=== PATIENT | female | born 1955 | race Caucasian/White ===

== ENCOUNTER 2020-07-19 16:28 | Outpatient (CLI) | payer MEDICARE, BC, SELFPAY | END 2020-07-19 16:29 | disposition home or self-care (01) | LOC: ANHCOVIDVC 16:28 | PROVIDERS: PCP Internal Medicine | DX: Z23 Encounter for immunization (principal) | CPT/HCPCS: 0001A; 91300 ==

== ENCOUNTER 2020-08-09 16:30 | Outpatient (CLI) | payer MEDICARE, BC, SELFPAY | END 2020-08-09 16:31 | disposition home or self-care (01) | LOC: ANHCOVIDVC 16:30 | PROVIDERS: PCP Internal Medicine | DX: Z23 Encounter for immunization (principal) | CPT/HCPCS: 0002A; 91300 ==

== ENCOUNTER 2022-03-12 15:30 | Emergency (ER) | payer MEDICARE, BC, SELFPAY ==
--- NOTE | ~2022-03-12 | XR_ITS ---
XR shoulder RT min 2V DATE: 03/12/2022 16:22 INDICATION: Fall today. Lateral shoulder pain when raising arm TECHNIQUE: 4 views of right shoulder COMPARISON: None FINDINGS: There is osteopenia. Mild degenerative change of the right acromioclavicular joint. Normal alignment at the michelle clavicu lar and glenohumeral joints. No fracture, dislocation, periosteal reaction or bone destruction or abn ormal soft tissue calcification. IMPRESSION: Osteopenia Mild degenerative change at right acromioclavicular joint No fracture or dislocation Reviewed, dictated and finalized at location A.
--- NOTE | ~2022-03-12 | XR_ITS ---
XR foot RT min 3V DATE: 03/12/2022 16:21 INDICATION: Fall. Dorsal metatarsal pain TECHNIQUE: 4 views COMPARISON: None FINDINGS: Mild plantar calcaneal enthesopathy without erosive change or periostitis. Prominent osteoarthritic arthritis at first metatarsophalangeal joint. No fracture or dislocation, periosteal reaction or bone destruction. IMPRESSION: Osteoarthritis at first metatarsophalangeal joint Mild plantar calcaneal enthesopathy No fracture or dislocation is detected Reviewed, dictated and finalized at location A.
--- NOTE | ~2022-03-12 | XR_ITS ---
XR foot LT min 3V DATE: 03/12/2022 16:20 INDICATION: Fall. Dorsal lateral pain and swelling TECHNIQUE: 4 views COMPARISON: None FINDINGS: Slight plantar calcaneal enthesopathy. Hallux valgus and bunion deformity and prominent osteoarthritic change at the first metatarsophalange al joint. There is a recent transverse nondisplaced intra-articular fracture of the base of the fifth metatarsa l bone IMPRESSION: Recent transverse nondisplaced intra-articular fracture of base of fifth metatarsal bone Hallux valgus and bunion deformity Severe osteoarthritic arthritis at first metatarsophalangeal joint Slight plantar calcaneal enthesopathy Reviewed, dictated and finalized at location A.
[2022-03-12 15:33] VITALS: BP 118/56; PULSE 62; RESP 16; TEMP 36.5; O2SAT 98
--- NOTE | 2022-03-12 16:56 | ED.LOWEXIN ---
HPI - Extremity Injury (Lower) General Chief Complaint: Extremity Injury, Lower <ISHA Meza Last Filed: 03/12/22 20:24> Stated Complaint: left foot pain, right toe pain, right shoulder raoul <ISHA Meza Last Filed: 03/12/22 20:24> Time Seen by Provider: 03/12/22 15:59 <ISHA Meza Last Filed: 03/12/22 20:24> History of Present Illness HPI Narrative: Patient is a 66-year-old female here for evaluation after a fall yesterday. Patient states that she was walking down a slope her driveway when her shoe got caught on an object, causing her to fall forward. States that she struck both feet against the pavement and landed on her right shoulder. Denies head injury or loss of consciousness. Patient has been able to take several steps but states it is painful. Pain is most notable in her right second and third toe, the lateral aspect of her left foot, and then her right shoulder. She was in her usual state of health prior to the fall, denies preceding chest pain, shortness of breath, fevers or chills, nausea or vomiting. <ISHA Meza Last Filed: 03/12/22 20:24> Related Data Home Medications: Home Medications Medication Instructions Recorded Confirmed aspirin 325 mg tablet See Rx Instructions PO DAILY 09/16/19 04/16/20 <ISHA Meza Last Filed: 03/12/22 20:24> Allergies/Adverse Reactions: Allergies Allergy/AdvReac Type Severity Reaction Status Date / Time levofloxacin Allergy Unknown Nausea and Verified 03/12/22 15:37 Vomiting metronidazole Allergy Unknown Nausea and Verified 03/12/22 15:37 Vomiting <ISHA Meza Last Filed: 03/12/22 20:24> Review of Systems Review of Systems: Gen: Denies fevers or chills Eyes: Denies eye pain or visual change ENT: Denies congestion Respiratory: Denies shortness of breath or cough CV: Denies chest pain or palpitations GI: Denies abdominal pain nausea, emesis or diarrhea : denies burning, urgency, frequency or hematuria Musculoskeletal: Denies back pain or muscle pain Neuro: Denies numbness, tingling, weakness or focal weakness Skin: Denies rash Except as documented, all other systems reviewed and negative <Isabelle Murray PA-C - Last Filed: 03/12/22 20:24> PMFSH Past Medical History Medical History: Medical History Postmenopausal Screening for colon cancer Skin lesions <Isabelle Murray PA-C - Last Filed: 03/12/22 20:24> Family History Family History: Family History (Updated 12/07/15 @ 23:19 by DOCTOR UNKNOWN) Mother Cerebrovascular accident Family history of cardiac disorder Family history of diabetes mellitus in first degree relative Family history of coronary artery disease Father Family history of lung cancer Family history of malignant neoplasm of esophagus Sibling Family history of coronary artery disease <Isabelle Murray PA-C - Last Filed: 03/12/22 20:24> Social History Social History: Social History Smoking status: Never smoker Alcohol intake: current <Isabelle Murray PA-C - Last Filed: 03/12/22 20:24> Exam Narrative: APPEARANCE: Well appearing, no pain in distress, well-nourished. Head: Normocephalic and atraumatic. EYES: PERRLA/EOMI, conjunctivae clear NOSE: No nasal drainage EARS: External ear normal in appearance THROAT: Oropharynx is clear. Mucous membranes are moist. NECK: Supple. No adenopathy, no masses. RESPIRATORY: Airway patent, respirations nonlabored. Clear to auscultation bilaterally, no rales, rhonchi, wheezing. CARDIOVASCULAR: Regular rate and rhythm without murmurs, rubs, or gallops. ABDOMINAL: Normoactive bowel sounds. Soft, nontender, nondistended. No rebound tenderness or guarding. MUSCULOSKELETAL: Patient has bruising noted to the right second and third proximal phalanges.
[2022-03-12] MEDS: HYDROcodone/acetaminophen (*CRX) 5-325 MG TABLET 1 TAB PO (17:00)
== END 2022-03-12 18:43 | disposition home or self-care (01) ==
PROVIDERS: Emergency Provider Emergency Medicine; PCP Family Medicine
DX: S92.355A Nondisplaced fracture of fifth metatarsal bone, left foot, initial encounter for closed fracture (principal); S49.91XA Unspecified injury of right shoulder and upper arm, initial encounter; Z79.82 Long term (current) use of aspirin; M19.072 Primary osteoarthritis, left ankle and foot; M19.071 Primary osteoarthritis, right ankle and foot; M20.12 Hallux valgus (acquired), left foot; M21.612 Bunion of left foot; W18.09XA Striking against other object with subsequent fall, initial encounter; M77.52 Other enthesopathy of left foot and ankle; M77.51 Other enthesopathy of right foot and ankle; M85.811 Other specified disorders of bone density and structure, right shoulder
CPT/HCPCS: 29515; 73030; 73630; 99284; A9270

== ENCOUNTER 2022-03-28 14:08 | Outpatient (CLI) | payer MEDICARE, BC, SELFPAY ==
--- NOTE | ~2022-03-28 | XR_ITS ---
XR foot LT min 3V DATE: 03/28/2022 14:34 INDICATION: Metatarsal fracture follow up TECHNIQUE: 4 views COMPARISON: 03/12/2022 left foot FINDINGS: There is hallux valgus and bunion deformity. There is severe osteoarthritis at first metatarsophalangeal joint. There is a transverse nondisplaced intra-articular fracture of the base of the fifth metatarsal bone without interval change in position or alignment since 03/12/2022. IMPRESSION: Nondisplaced intra-articular fracture of the base of fifth metatarsal bone without change in position or alignment since 03/12/2022 Hallux valgus and bunion deformity Severe osteoarthritis at the first metatarsophalangeal joint Reviewed, dictated and finalized at location B. SPREADER IMPRESSION: Nondisplaced intra-articular fracture of the base of fifth metatars al bone without change in position or alignment since 03/12/2022 Hallux valgus and bunion deformity Severe osteoarthritis at the first metatarsophalangeal joint
== END 2022-03-28 14:09 | disposition home or self-care (01) ==
LOC: ANHIMG 14:16
PROVIDERS: PCP Family Medicine; Visit Provider Podiatrist Foot & Ankle Surgery
DX: S92.355A Nondisplaced fracture of fifth metatarsal bone, left foot, initial encounter for closed fracture (principal); X58.XXXA Exposure to other specified factors, initial encounter; M77.32 Calcaneal spur, left foot; M19.072 Primary osteoarthritis, left ankle and foot
CPT/HCPCS: 73630

== ENCOUNTER 2022-04-25 13:41 | Outpatient (CLI) | payer MEDICARE, BC, SELFPAY ==
--- NOTE | ~2022-04-25 | XR_ITS ---
Left foot Technique: AP, oblique, and lateral views were obtained. Clinical History: Metatarsal fracture COMPARISON: 03/28/2022 Findings: Fractured the base of fifth metatarsal demonstrates significant interval healing, with part ial bony bridging across the fracture site.. There is moderate degenerative change at the first metat arsophalangeal joint. Soft tissues are unremarkable. Impression: Significant interval healing of base of fifth metatarsal fracture since the prior exam. Moderate degenerative change at the first MTP joint. Reviewed, dictated and finalized at location [] ING INSTALLER Impression: Significant interval healing of base of fifth metatarsal fracture since the león or exam. Moderate degenerative change at the first MTP joint.
== END 2022-04-25 13:42 | disposition home or self-care (01) ==
PROVIDERS: PCP Family Medicine; Visit Provider Podiatrist Foot & Ankle Surgery
DX: S92.352D Displaced fracture of fifth metatarsal bone, left foot, subsequent encounter for fracture with routine healing (principal); X58.XXXD Exposure to other specified factors, subsequent encounter
CPT/HCPCS: 73630

== ENCOUNTER 2022-06-13 18:02 | Outpatient (CLI) | payer MEDICARE, BC, SELFPAY ==
--- NOTE | ~2022-06-13 | XR_ITS ---
EXAMINATION: XR foot LT min 3V DATE: 06/13/2022 18:40 INDICATION: Metatarsal fracture. TECHNIQUE: 3 views of left foot were obtained. COMPARISON: Left foot radiographs 04/25/2022, 03/28/22 FINDINGS: There is mild hallux valgus. No fracture. There is severe osteoarthritis of first metatarso phalangeal joint and mild osteoarthritis of the interphalangeal joints and midfoot joints. IMPRESSION: 1. No visible fracture. 2. Polyarticular osteoarthritis. 3. Mild hallux valgus. Reviewed, dictated and finalized at location A. IFIED PHARMACY TECHNICIAN
== END 2022-06-13 18:03 | disposition home or self-care (01) ==
LOC: ANHIMG 18:08
PROVIDERS: PCP Family Medicine; Visit Provider Podiatrist Foot & Ankle Surgery
DX: S92.302A Fracture of unspecified metatarsal bone(s), left foot, initial encounter for closed fracture (principal); X58.XXXA Exposure to other specified factors, initial encounter; M19.072 Primary osteoarthritis, left ankle and foot; M20.12 Hallux valgus (acquired), left foot
CPT/HCPCS: 73630

== ENCOUNTER 2023-04-03 22:51 | Inpatient (IN) | payer MEDICARE, BC, SELFPAY ==
--- NOTE | ~2023-04-03 | XR_ITS ---
XR chest 1V portable DATE: 04/03/2023 23:58 INDICATION: Chest pain, nausea. Gallbladder pain. TECHNIQUE: Portable AP chest on 03/30/2023 at 2355 hours COMPARISON: September 05, 2003 2 view chest FINDINGS: Normal heart size. Aortic arch calcification. No hilar or mediastinal enlargement. No pulmonary infiltrate or consolidation, pleural effusion or pulmonary vascular congestion or pneumo thorax is detected. Mild degenerative spurring of the thoracic spine. Osteopenia. IMPRESSION: No active cardiopulmonary disease Aortic atherosclerosis Reviewed, dictated and finalized at location A. AGE ENGINE OPERATOR
--- NOTE | ~2023-04-03 | CT_ITS ---
EXAMINATION: CT abdomen pelvis w con INDICATION: Right upper quadrant pain TECHNIQUE: Computed tomographic images of the abdomen and pelvis were obtained after the administrati on of 100 cc of Omnipaque 350 intravenous contrast. The dose-length product (DLP) was 729.07 mGy-cm. Automated exposure control and iterative reconstruction technique were employed. COMPARISON: 11/13/2016 FINDINGS: Minimal dependent atelectasis is present in the lung bases. The heart size is normal. Bilat eral breast implants are noted. Cysts of liver measure up to 4.1 cm in the right hepatic lobe. The sp ba, pancreas, and adrenal glands are normal. There is questionable mild wall thickening of the gall bladder the left kidney is unremarkable. There is a 4 mm cyst of the right kidney. There is calcified atherosclerosis of the aorta and many of the other arteries. No pathologically enlarged abdominal or pelvic lymph nodes are identified. A moderate volume of colonic stool is present. Colonic diverticul osis is present without evidence of diverticulitis. The appendix is normal. There is moderate lumbar spondylosis. IMPRESSION: 1. Possible gallbladder wall thickening which could reflect cholecystitis. Consider right upper quadr ant ultrasound. Reviewed, dictated and finalized at location F. CHER UTILITY IMPRESSION: 1. Possible gallbladder wall thickening which could reflect cholecystitis. Cons ider right upper quadrant ultrasound.
[2023-04-03 22:54] VITALS: BP 154/68; PULSE 52; RESP 18; TEMP 37.1; O2SAT 100
--- NOTE | 2023-04-03 23:03 | ECG_ITS ---
Measurements Intervals [place] Rate: 48 P: NE: 0 QRS: -9 QRSD: 152 T: 32 QT: 462 QTc: 414 Interpretive Statements JUNCTIONAL RHYTHM CHANAGES TO SINUS BRADYCARDIA LEFT BUNDLE BRANCH BLOCK ABNORMAL ECG NO PREVIOUS ECG AVAILABLE FOR COMPARISON Electronically Signed On 04-04-2023 8:27:21 ELECTRONICS ASSEMBLER AND TESTER by Turner Jean D.O.
[2023-04-03 23:14] LABS: Basophils Absolute Auto 0.1 K/mm3 (0.0-0.1); Basophils Percent Auto 0.8 % (0.2-1.2); Eosinophils Absolute Auto 0.1 K/mm3 (0-0.3); Eosinophils Percent Auto 1.8 % (0-4.4); Hematocrit 39.6 % (37.0-47.0); Hemoglobin 13.5 g/dL (12.0-15.0); Immature Granulocyte Absolute 0.02 K/mm3 (0.00-0.031); Immature Granulocyte Percent A 0.3 % (0-0.5); Lymphocytes Absolute Auto 1.82 K/mm3 (0.9-3.2); Lymphocytes Percent Auto 23.4 % (18.3-44.2); Mean Corpuscular HGB Conc 34.1 g/dl (32-36); Mean Corpuscular Hemoglobin 30.5 pg (26-34); Mean Corpuscular Volume 89.4 fl (80-100); Mean Platelet Volume 10.7 fl (7.4-10.4); Monocytes Absolute Auto 0.5 K/mm3 (0.1-0.6); Monocytes Percent Auto 6.8 % (2.6-8.5); Neutrophils Absolute Auto 5.2 K/mm3 (1.3-6.7); Neutrophils Percent Auto 66.9 % (45.5-73.1); Platelet Count Result 246 k/mm3 (150-375); Red Blood Count 4.43 M/mm3 (4.2-5.4); Red Cell Distribution Width 13.3 % (11.5-14.5); White Blood Count 7.8 K/mm3 (4.5-10.0)
[2023-04-03 23:27] LABS: Alanine Aminotransferase 21 U/L (6-35); Albumin Level 4.3 g/dL (3.5-5.1); Alkaline Phosphatase 73 U/L (38-126); Anion Gap 9 mmol/L (8-16); Aspartate Amino Transferase 25 U/L (14-36); Bilirubin,Total 0.6 mg/dL (0.2-1.3); Blood Urea Nitrogen 18 mg/dL (7-17); Calcium 9.5 mg/dL (8.4-10.2); Carbon Dioxide 21 mmol/L (22-30); Chloride 105 mmol/L (98-107); Estimated CRCL calculation 61 ml/min; Estimated Glomerular Filt Rate > 60; Glucose 180 mg/dL (65-110); Lipase 126 U/L (23-300); Potassium 3.7 mmol/L (3.4-5.0); Sodium 135 mmol/L (137-145)
[2023-04-03 23:32] LABS: Prothrombin Time 13.1 Seconds (11.1-14.7)
[2023-04-03 23:33] LABS: Partial Thromboplastin Time 25.7 SECONDS (22.3-36.8)
[2023-04-04] VITALS (19 sets, daily range): BP systolic 109–150; BP diastolic 48–68; PULSE 51–66; RESP 12–20; TEMP 36.1–36.5; O2SAT 94–100; BMI 33.5
[2023-04-04 00:13] LABS: NT Pro B Type Natriuretic Pept 189 pg/mL (19.9-100); Troponin I 0.018 ng/mL (0.000-0.034)
[2023-04-04] MEDS: ONDANSETRON INJ 4 MG/2 ML VIAL IV PUSH (00:20)
[2023-04-04] MEDS: SODIUM CHLORIDE 0.9% IV 1,000 ML 999 ML IV CONT (00:20)
[2023-04-04] MEDS: ACETAMINOPHEN 500 MG TABLET 1000 MG PO (00:20)
[2023-04-04] MEDS: HYDROmorphone HCL INJ (*CRX) 1 MG/ML SYR 0.5 MG IV PUSH ×2 (00:20→01:58)
--- NOTE | 2023-04-04 00:43 | ED.GENADULT ---
HPI - General Adult General Chief complaint: Abdominal Pain Stated complaint: abd pain Time Seen by Provider: 04/03/23 23:31 History of Present Illness HPI narrative: This is a 59-year-old female presenting ED with a chief complaint of abdominal pain. Patient says that she has pain the RUQ/Epigastric area that started at 945 this evening after eating apple pie. Pain is sharp and radiates to her back and says her arms feel week. 7/10 intensity and getting worse. Patient relates this to previous gallbladder attacks and is scheduled to have her gallbladder out on Thursday. There are no exacerbating relieving factors. She has nausea without vomiting. Denies fever chills chest pain difficulty breathing or urinary symptoms. Patient patient has cardiac history and had a stent placed in 2013. Manufacturing Area Manager is Dr. Cha. Related Data Home Medications Medication Instructions Recorded Confirmed aspirin 325 mg tablet See Rx Instructions PO DAILY 09/16/19 04/16/20 Allergies Allergy/AdvReac Type Severity Reaction Status Date / Time levofloxacin Allergy Unknown Nausea and Verified 04/03/23 22:59 Vomiting metronidazole Allergy Unknown Nausea and Verified 04/03/23 22:59 Vomiting [facility] Past Medical History Medical History (Updated 04/04/23 @ 04:00 by Bimal Ohara MD) CAD (coronary artery disease) CHF (congestive heart failure) Postmenopausal Screening for colon cancer Skin lesions Family History Family History Mother Cerebrovascular accident Family history of cardiac disorder Family history of diabetes mellitus in first degree relative Family history of coronary artery disease Father Family history of lung cancer Family history of malignant neoplasm of esophagus Sibling Family history of coronary artery disease Social History Social History Smoking status: Never smoker Alcohol intake: current Exam Narrative: APPEARANCE: No apparent distress. Head: atraumatic. EYES: EOMI, NOSE: Atraumatic NECK: Trachea midline RESPIRATORY: No increased rate of breathing CARDIOVASCULAR: RRR, ABDOMINAL: Tenderness palpation right upper quadrant, rest the abdomen is soft nontender no guarding or rebound MUSCULOSKELETAl: No obvious deformities, patient has tenderness to palpation in the parathoracic muscles of her back NEURO: Alert. Moving 4/4 extremities SKIN:: Warm, dry. Normal color PSYCHIATRIC: Normal affect Course Vital Signs Vital signs: Vital Signs Temperature 98.7 F 04/03/23 22:54 Pulse Rate 52 L 04/03/23 22:54 Respiratory Rate 18 04/03/23 22:54 Blood Pressure 154/68 H 04/03/23 22:54 Pulse Oximetry 100 04/03/23 22:54 Oxygen Delivery Room Air 04/03/23 22:54 Temperature 98.7 F 04/03/23 22:54 Pulse Rate 58 L 04/04/23 02:02 Respiratory Rate 15 04/04/23 02:02 Blood Pressure 150/68 H 04/04/23 02:02 Pulse Oximetry 100 04/04/23 02:02 Oxygen Delivery Room Air 04/03/23 22:54 Medical Decision Making MDM Narrative Medical decision making narrative: -Course: This is a 67-year-old female history of coronary disease and right upper quadrant pain presenting with epigastric pain radiating to her back. Abdominal workup was unremarkable and her abdominal pain is controlled with medications. However, she does have up-trending troponins. No STEMI on EKG. Patient started on heparin. Case was discussed with Cardiology. Patient will be admitted to the hospital for management of NSTEMI. -DDX includes but is not limited to: Biliary pathology, gastritis, pancreatitis, ACS, gastroenteritis -Co-morbidities complicating care: Cholelithiasis, coronary artery disease -Social determinants of health: Retired, lives alone -Independent interpretation of studies: CBC normal. CMP normal. BNP 189. Chest x-ray clear. Initial troponin 0.018 -> 0.967 Independent EKG i
[2023-04-04] MEDS: KETOROLAC 15 MG/ML VIAL (*BKC) IV PUSH (01:57)
[2023-04-04] MEDS: METOCLOPRAMIDE HCL INJ 10 MG/2 ML VIAL IV PUSH (01:57)
--- NOTE | 2023-04-04 02:11 | PC.NURSE ---
This RN assumed care of patient. This RN took patient report from JEFFREY Fernández.
[2023-04-04 02:37] LABS: Appearance Urine Clear (Clear); Bacteria Urine None Seen /hpf; Bilirubin Urine Negative (Negative); Blood Urine Negative (Negative); Color Urine Yellow (Yellow); Glucose Urine UA Negative (Negative); Ketones Urine Negative (Negative); Leukocyte Esterase Ur Negative LEU/UL (Negative); Need Manual Microscopic Reviewed; Nitrate Urine Negative (Negative); Non Pathogenic Casts 0-2; Protein Urine Trace mg/dL (Negative); Squamous Epithelial Cell Urine None seen /hpf (Few); Urobilinogen Urine 0.2 mg/dL (<2.0); WBC Urine 0-5 /hpf; pH Urine 5.5 (5.0-9.0)
[2023-04-04 02:40] LABS: Add Urine Microscopic? YES
[2023-04-04 03:33] LABS: Troponin I 0.967 ng/mL (0.000-0.034)
--- NOTE | 2023-04-04 03:47 | ECG_ITS ---
Measurements Intervals [place] Rate: 46 P: 64 [place]: 142 QRS: 1 QRSD: 150 T: 77 QT: 546 QTc: 479 Interpretive Statements SINUS BRADYCARDIA LEFT BUNDLE BRANCH BLOCK ABNORMAL ECG COMPARED TO ECG 04/03/2023 23:06:58 NO SIGNIFICANT CHANGES Electronically Signed On 04-04-2023 8:33:39 HAT LINING PASTER by Turner Jean D.O.
[2023-04-04] MEDS: ASPIRIN 81 MG CHEWABLE TABLET 324 MG PO (04:26)
[2023-04-04] MEDS: HEPARIN SOD/D5W 100 UNITS/ML 25,000 UNITS/250 ML BAG 8 UNITS IV CONT (04:27)
[2023-04-04] MEDS: HEPARIN SODIUM 5,000 UNITS/ML VIAL 4000 UNITS IV PUSH (04:27)
--- NOTE | 2023-04-04 05:33 | PC.NURSE ---
This patient, Daisy Rodriguez, was admitted to IMU Room 203-01. Patient/family oriented to hospital policies and general routines including ID bracelet, bed and alarms, visiting hours, pain management, procedures, bathroom and other care routines, personal items, smoking policy, room service/diet, and visiting hours. Information on how to activate the Rapid Response Team has been discussed. Patient/Family are encouraged to report perceived risks to care and to ask questions if they do not understand what they are told or what they should do.
--- NOTE | 2023-04-04 07:20 | PM.IMHP ---
H&P: HPI History of Present Illness Date/Time: 04/04/23 05:30 Chief Complaint: Abdominal pain Narrative: 67-year-old female with a past medical history of ischemic cardiomyopathy, coronary disease status post RCA stent 2013, essential hypertension, hyperlipidemia and obesity among other coronary bed 80s who presented to the ER via EMS due to abdominal pain. The patient reports that she is scheduled to have outpatient cholecystectomy on Thursday. She states that she ate a couple of bites of apple pie around 20:30 and around 21:00 she began having pain a behind her left breast and her epigastric area that radiated through to her back. This is similar to her prior episodes of gallbladder attack. Pain was 10/10 intensity sharp and stabbing. It was accompanied by more severe nausea than usual. After she arrived in the ER though she reports that the pain actually moved from her abdomen and up into her substernal region it radiated through to her back. Is accompanied by as sensation of shortness of breath. The pain also radiated down into her arms bilaterally. She reported that arms felt heavy and weak. She still feels wrong out. She denies any persistent nausea or chest pain after she received 2 doses of Dilaudid in the ER. She also received a dose of Toradol Zofran and Reglan in the ER. As well as a L of IV fluids. She reports that she had her initial cardiac catheterization due to dyspnea on exertion and an EF of 25%. Her catheterization in 2013 demonstrated 50-60% RCA stenosis she had a 3 x 24 mm problem ES stent placed and she was on dual antiplatelet therapy for 1 year. She also had 90% stenosis of small D2 branch of the LCA. She had a episode of VFib during her cardiac catheterization a required defibrillation. She reports her last echocardiogram was performed 1 week ago outpatient and her EF was 52% down from the year before a 58%. She follows with Dr. Holland and Dr. Alvarez performed her cardiac catheterization in 2013. She reports that her baby aspirin has been on hold for 3 or 4 days due to her anticipated cholecystectomy. She has also been on phentermine for the last 3 months she was on 15 mg a month for 2 months and then has been on 30 mg a month for 1 month. She has lost 27 lb. The patient reports that she chronically sleeps on an extra thick pillow consistent with proximally 2 pillow orthopnea. She denies any lower extremity swelling or dyspnea on exertion but admits she is not very active. She has similar symptoms were due to acute cholecystitis. She reports that she has been having intermittent episodes like this for a couple of months. However today's pain was different in that it did moved to a substernal region and caused accompanying arm heaviness. Her nausea was also worse today. She denies a known history of actual having a heart attack in her prior catheterization was due to dyspnea on exertion and abnormal echo as discussed above. Review of Systems Review of Systems: 12 systems were reviewed with pertinent positives and negatives per HPI. Except as documented in the HPI, all other systems were reviewed and are negative. She reports occasional stress urinary incontinence when she coughs. She recently got over URI symptoms that have completely resolved. [facility] Past Medical History Medical History Anxiety Basal cell carcinoma (~2009) Resected from the tip of the nose Bilateral cataracts CAD (coronary artery disease) Depression Diverticulosis With history of diverticulitis Essential hypertension Exercise-induced asthma Hepatic steatosis Hyperlipidemia Ischemic cardiomyopathy With an EF as low as 25% in 2013 with most recent EF 2022 of 52% Left bundle branch block Obesity (BMI 30.0-34.9) ZACH (obstructive sleep apnea) Patient reports that her study demonstrated mild obstructive sleep apnea and CPAP was not recommended Peripheral neuropathy Postmenopausal
[2023-04-04 07:54] LABS: Basophils Percent Auto 0.4 % (0.2-1.2); Eosinophils Percent Auto 0.5 % (0-4.4); Hematocrit 36.3 % (37.0-47.0); Hemoglobin 11.9 g/dL (12.0-15.0); Immature Granulocyte Absolute 0.04 K/mm3 (0.00-0.031); Immature Granulocyte Percent A 0.5 % (0-0.5); Lymphocytes Absolute Auto 1.33 K/mm3 (0.9-3.2); Lymphocytes Percent Auto 17.9 % (18.3-44.2); Mean Corpuscular HGB Conc 32.8 g/dl (32-36); Mean Corpuscular Hemoglobin 30.6 pg (26-34); Mean Corpuscular Volume 93.3 fl (80-100); Mean Platelet Volume 10.7 fl (7.4-10.4); Monocytes Absolute Auto 0.4 K/mm3 (0.1-0.6); Monocytes Percent Auto 5.5 % (2.6-8.5); Neutrophils Absolute Auto 5.6 K/mm3 (1.3-6.7); Neutrophils Percent Auto 75.2 % (45.5-73.1); Platelet Count Result 176 k/mm3 (150-375); Red Blood Count 3.89 M/mm3 (4.2-5.4); Red Cell Distribution Width 13.3 % (11.5-14.5); White Blood Count 7.4 K/mm3 (4.5-10.0)
[2023-04-04 08:32] LABS: Partial Thromboplastin Time 96.9 SECONDS (22.3-36.8)
[2023-04-04 08:35] LABS: D Dimer 0.42 ug/mL (<0.48)
[2023-04-04 09:17] LABS: Hemoglobin A1C 4.9 % (<5.7)
[2023-04-04] MEDS: FOLIC ACID 0.4 MG TABLET 1.2 MG PO (09:22)
[2023-04-04] MEDS: CHOLECALCIFEROL 1,000 UNITS TABLET 5000 UNITS PO (09:22)
[2023-04-04] MEDS: FOLIC ACID 1 MG TABLET PO (09:23)
[2023-04-04] MEDS: FUROSEMIDE 40 MG TABLET PO (09:23)
[2023-04-04] MEDS: LOSARTAN POTASSIUM 25 MG TABLET PO (09:23)
[2023-04-04] MEDS: CITALOPRAM HYDROBROMIDE 20 MG TABLET 40 MG BY MOUTH (09:23)
[2023-04-04] MEDS: DOCUSATE SODIUM 100 MG CAPSULE PO ×2 (09:23→20:02)
[2023-04-04] MEDS: CYANOCOBALAMIN 1,000 MCG TABLET 1000 MCG PO (09:23)
[2023-04-04] MEDS: carvediloL 12.5 MG TABLET PO (09:23)
[2023-04-04] MEDS: PYRIDOXINE HCL 25 MG TABLET PO (09:24)
[2023-04-04] MEDS: ASPIRIN 81 MG ENTERIC TABLET PO (09:24)
[2023-04-04] MEDS: POTASSIUM CHLORIDE 20 MEQ ER TABLET PO (09:24)
--- NOTE | 2023-04-04 11:59 | PM.CNCAR ---
Assessment and Plan Assessment and plan (1) Acute non-ST elevation myocardial infarction (NSTEMI): Code(s): I21.4 - Non-ST elevation (NSTEMI) myocardial infarction Status: Acute Plan This is a 59 lady with a history of coronary disease status post RCA stenting 9 years ago. At that time she also has significant LV systolic dysfunction which has recovered nicely following revascularization and medical therapy. She enters the hospital with an episode of abdominal pain radiating to the center of the chest and interscapular region social with a moderate troponin rise. The diagnosis of ACS has appropriately been made. We will recommend proceed with follow-up angiography on Thursday morning since she has been stabilized with medical therapy and is now asymptomatic. Obviously her outpatient gallbladder surgery will not occur as scheduled. Anderson Alvarez MD [facility] History of Present Illness History of Present Illness Consult date/time: 04/04/23 11:59 Reason For Visit: NSTEMI Narrative: This is a 67-year-old woman I am seeing at the request of the hospitalist because of concern regarding acute coronary syndrome/non ST elevation AR. This is a patient coronary artery disease and left ventricular systolic dysfunction. She came into the hospital last evening because of some symptoms of epigastric abdominal discomfort, right upper quadrant pain that then radiated into the chest and into the interscapular region of her back. The symptoms began after she ate a piece of apple pie which is the reason she was concerned these were symptoms are related to her gallbladder. She has recently been found to have gallstones and apparently is scheduled to have a cholecystectomy done at another hospital on Thursday. She says that she has had symptoms like this with some postprandial pain that have been attributed to gallstones. She is not noticing any exertional symptoms such as chest pain shortness of breath she has been denying any symptoms of orthopnea PND or edema. She has a history of left ventricular systolic dysfunction that was established back in 2013. At that time she had a low ejection fraction of 20-25%. She was brought for anterior angiography at the time of that diagnosis and was found to have moderate disease in the mid right coronary artery. Despite it being moderate angiographically it was flow limiting by FFR testing and she underwent stenting of that lesion with a good angiographic result. She was followed in our office for a short time after that but then failed follow-up because she has spent most of the last few years dealing with her caring for him as he was developing severe dementia. Her recently and she has been trying to attend to her health more than she has in the past. She states that she otherwise generally feels well and does not have any significant complaints at this time. Following admission to the hospital emergency room yesterday her troponin levels did rise moderately raising concern about ACS. She has been treated with aspirin heparin and nitrates and seems to be stable she is no longer symptomatic at all. Electrocardiogram shows sinus rhythm with left bundle branch block which is stated above is chronic. The patient did reestablish care in our office just recently saw my partner, Dr. Cha who performed an echocardiogram in the office which look much better with an ejection fraction of 53%. Regular follow-up in the office was recommended and scheduled. Review of Systems Constitutional: Constitutional: Reports fatigue Eyes: Eyes: Reports no additional eye complaints ENT: Reports system reviewed and no additional complaints, except as documented Cardiovascular: Cardiovascular: Reports as per HPI Respiratory: Respiratory: Reports no additional respiratory complaints Gastrointestinal: Gastrointestinal: Reports as per HPI and Reports abdominal pain Comments: Postprandial abdominal discomfort
[2023-04-04] MEDS: HEPARIN SODIUM 5,000 UNITS/ML VIAL 2500 UNITS IV PUSH (12:30)
--- NOTE | 2023-04-04 12:58 | PM.IMPN ---
Progress Note: A&P Assessment and Plan (1) Acute non-ST elevation myocardial infarction (NSTEMI): Code(s): I21.4 - Non-ST elevation (NSTEMI) myocardial infarction Status: Acute (2) Borderline hyperglycemia: Code(s): R73.9 - Hyperglycemia, unspecified Status: Acute (3) Ischemic cardiomyopathy: Code(s): I25.5 - Ischemic cardiomyopathy Status: Acute (4) Cholelithiasis: Qualifiers: Biliary obstruction: without biliary obstruction Cholelithiasis location: other site Qualified Code(s): K80.80 - Other cholelithiasis without obstruction Code(s): K80.20 - Calculus of gallbladder without cholecystitis without obstruction Status: Acute (5) CAD (coronary artery disease): Qualifiers: Coronary Disease-Associated Artery/Lesion type: [place] artery [place] vs. transplanted heart: [place] heart Associated angina: with unstable angina Qualified Code(s): I25.110 - Atherosclerotic heart disease of [place] coronary artery with unstable angina pectoris Code(s): I25.10 - Atherosclerotic heart disease of [place] coronary artery without angina pectoris Status: Acute (6) Essential (primary) hypertension: Code(s): I10 - Essential (primary) hypertension Status: Acute (7) Hypotension due to drugs: Code(s): I95.2 - Hypotension due to drugs Status: Acute Plan 1. NSTEMI pt placed on heparin drip by overnight hospitalist troponins will not be trended because pt has planned angiography on Thursday If pt decompenstes clinically, may need urgent cath with cardiology already on coreg, asa bp well controlled, actually overly controlled and pt is hypotensive 2. Ischemic cardiomyopathy Reports of EF of 53% on outpt echo, I am not able to see these records From admitting hospitalist, She reports her last echocardiogram was performed 1 week ago outpatient and her EF was 52% down from the year before a 58%.? She follows with Dr. Holland and Dr. Alvarez performed her cardiac catheterization in 2013.? She reports that her baby aspirin has been on hold for 3 or 4 days due to her anticipated cholecystectomy. ?? already on systolic chf medications and lasix appropriately hx of revascularization in 2013, RCA stenosis and LV systolic dysfunction, 20-25% as a result. had stenting at that time with Dr. Alvarez The pt seems euvolemic and lasix discontinuation should be considered, especially in light of her hypotension 3. Hypotension, drug induced lower coreg to 6.25 mg bid, losartan to 12.5 mg qd has been on lasix for >30 years for LE edema and anasarca presumably due to chf ct 40 mg/day. suspend if pt's cr rises 4. Hyperglycemia hb 4.9 on admission iss 5. Hx of cholelithiasis or cholecystitis ct a/p on admission shows Possible gallbladder wall thickening which could reflect cholecystitis Evaluate this after coronary angiography Time Spent With Patient Time: 45 min Subjective Date/time seen: 04/04/23 12:58 Interval history: pt only reports inability to take a deep breath- shallow breathing. denies chest pain. Exam Const: General: comfortable and no acute distress Other: Pleasant overweight white female no apparent distress HENMT: Mouth: Yes moist mucous membranes Eyes: Sclera: sclerae normal Neck: Neck: supple and no JVD Resp: Effort & Inspection: normal respiratory effort Auscultation: clear to auscultation bilaterally Cardio: Rate: regular rate Rhythm: regular rhythm Other: PMI difficult to palpate, no murmur no gallop GI: GI Palp: Yes Soft to palpation Auscultation: normal bowel sounds Skin: General skin exam: normal color Neuro: Other: Alert and oriented x3 Extrem: Other: Good distal perfusion, no edema is present Objective Data Vital Signs Vital Signs: Vital Signs - 24 hr 04/03/23 22:54 04/04/23 02:02 04/04/23 04:30 Temperature 98.7 F Pulse Rate 52 L 58 L 66 Respiratory Rate 1
[2023-04-04] MEDS: NITROGLYCERIN SL 0.4 MG TABLET SUBLINGUAL ×2 (16:33→16:41)
[2023-04-04 17:49] LABS: Glucose Point of Care 119 mg/dl (65-105)
[2023-04-04] MEDS: ALPRAZolam (*CRX) 0.25 MG TABLET PO (18:35)
--- NOTE | 2023-04-04 18:59 | ECG_ITS ---
Measurements Intervals [place] Rate: 54 P: 43 GA: 138 QRS: -3 QRSD: 148 T: 79 QT: 509 QTc: 485 Interpretive Statements SINUS BRADYCARDIA LEFT BUNDLE BRANCH BLOCK BASELINE ARTIFACT- I, III, AVR, AVL ABNORMAL ECG COMPARED TO ECG 04/04/2023 03:49:06 NO SIGNIFICANT CHANGES Electronically Signed On 04-05-2023 9:10:23 [employer] by Turner Jean D.O.
[2023-04-04 19:02] LABS: Partial Thromboplastin Time 107.4 SECONDS (22.3-36.8)
[2023-04-04] MEDS: carvediloL 6.25 MG TABLET PO (20:02)
[2023-04-04] MEDS: ATORVASTATIN 40 MG TABLET BY MOUTH (20:02)
[2023-04-04] MEDS: traZODone HCL 50 MG TABLET PO (20:03)
[2023-04-04 20:36] LABS: Glucose Point of Care 118 mg/dl (65-105)
[2023-04-05] VITALS (16 sets, daily range): BP systolic 96–124; BP diastolic 40–67; PULSE 51–80; RESP 16–20; TEMP 36.4–36.9; O2SAT 97–98
[2023-04-05 01:39] LABS: Partial Thromboplastin Time 78.6 SECONDS (22.3-36.8)
[2023-04-05 06:54] LABS: Basophils Percent Auto 0.7 % (0.2-1.2); Eosinophils Absolute Auto 0.1 K/mm3 (0-0.3); Hematocrit 38.1 % (37.0-47.0); Hemoglobin 12.2 g/dL (12.0-15.0); Immature Granulocyte Absolute 0.01 K/mm3 (0.00-0.031); Immature Granulocyte Percent A 0.2 % (0-0.5); Lymphocytes Absolute Auto 1.57 K/mm3 (0.9-3.2); Lymphocytes Percent Auto 34.9 % (18.3-44.2); Mean Corpuscular Hemoglobin 30.2 pg (26-34); Mean Corpuscular Volume 94.3 fl (80-100); Mean Platelet Volume 10.5 fl (7.4-10.4); Monocytes Absolute Auto 0.3 K/mm3 (0.1-0.6); Monocytes Percent Auto 7.6 % (2.6-8.5); Neutrophils Absolute Auto 2.5 K/mm3 (1.3-6.7); Neutrophils Percent Auto 54.6 % (45.5-73.1); Platelet Count Result 158 k/mm3 (150-375); Red Blood Count 4.04 M/mm3 (4.2-5.4); Red Cell Distribution Width 13.7 % (11.5-14.5); White Blood Count 4.5 K/mm3 (4.5-10.0)
[2023-04-05 07:10] LABS: Partial Thromboplastin Time 72.6 SECONDS (22.3-36.8)
[2023-04-05 08:02] LABS: Glucose Point of Care 93 mg/dl (65-105)
--- NOTE | 2023-04-05 08:06 | PM.PNCARD ---
Progress Note: A&P Assessment and Plan (1) CAD (coronary artery disease): Qualifiers: Coronary Disease-Associated Artery/Lesion type: [place] artery [place] vs. transplanted heart: [place] heart Associated angina: with unstable angina Qualified Code(s): I25.110 - Atherosclerotic heart disease of [place] coronary artery with unstable angina pectoris Code(s): I25.10 - Atherosclerotic heart disease of [place] coronary artery without angina pectoris Status: Acute (2) Acute non-ST elevation myocardial infarction (NSTEMI): Code(s): I21.4 - Non-ST elevation (NSTEMI) myocardial infarction Status: Acute Plan 67-year-old lady with coronary disease status post PCI of the right coronary artery in 2013. She also had low reduced LV systolic function at that time which is improved following revascularization and medical therapy. She enters the hospital now with symptoms that are atypical of ischemia but in the face of this there has been a modest troponin rise. She is stable this morning on intravenous heparin. Plans for follow-up angiography tomorrow again reviewed with the patient. She understands this and is agreeable Anderson Alvarez MD [facility] Subjective Date/time seen: Date of service: 04/05/23 08:06 Interval history: Follow-up visit in this 67-year-old lady with: History of coronary artery disease and left ventricular systolic dysfunction. Patient status post stenting of the RCA in 2013. She enters the hospital here with abdominal/chest discomfort and a modest troponin rise raising concern regarding possibility of ACS. She also has gallstones and was scheduled for cholecystectomy at another institution tomorrow. Patient is comfortable this morning. No ongoing symptoms of chest pain. Her questioning to me why her fingerstick blood glucose is being checked otherwise asymptomatic Exam Const: General: comfortable and no acute distress HENMT: Mouth: Yes moist mucous membranes Eyes: Sclera: sclerae normal Neck: Neck: supple and no JVD Resp: Effort & Inspection: normal respiratory effort Auscultation: clear to auscultation bilaterally Cardio: Rate: regular rate Rhythm: regular rhythm GI: GI Palp: Yes Soft to palpation Auscultation: normal bowel sounds Skin: General skin exam: normal color Neuro: Other: Alert and oriented x3 Extrem: Other: No edema, good perfusion Objective Data Vital Signs Vital Signs: Vital Signs - 24 hr 04/04/23 09:23 04/04/23 10:00 04/04/23 12:00 Temperature 36.4 C Pulse Rate 62 53 L 56 L Respiratory Rate 16 Blood Pressure 109/52 L Pulse Oximetry 97 Oxygen Delivery 04/04/23 12:00 04/04/23 14:00 04/04/23 12:00 Temperature Pulse Rate 58 L 54 L Respiratory Rate Blood Pressure Pulse Oximetry Oxygen Delivery Room Air 04/04/23 16:00 04/04/23 16:00 04/04/23 16:00 Temperature 36.4 C Pulse Rate 52 L 58 L Respiratory Rate 16 Blood Pressure 144/66 H Pulse Oximetry 98 Oxygen Delivery Room Air 04/04/23 18:00 04/04/23 20:02 04/04/23 20:00 Temperature 36.1 C L Pulse Rate 53 L 58 L 58 L Respiratory Rate 16 Blood Pressure 121/56 L Pulse Oximetry 98 Oxygen Delivery 04/04/23 20:00 04/04/23 23:31 04/04/23 20:00 Temperature 36.1 C L Pulse Rate 58 L 51 L 58 L Respiratory Rate 16 16 Blood Pressure 118/48 L Pulse Oximetry 98 98 Oxygen Delivery Room Air 04/04/23 22:00 04/05/23 00:00 04/05/23 00:00 Temperature Pulse Rate 53 L 51 L 51 L Respiratory Rate 16 Blood Pressure Pulse Oximetry 98 Oxygen Delivery Room Air 04/05/23 01:34 04/05/23 04:00 04/05/23 04:00 Temperature 36.4 C Pulse Rate 51 L 60 60 Respiratory Rate 16 16 Blood Pressure 110/40 L Pulse Oximetry 98 98 Oxygen Delivery Room Air 04/05/23 04:00 04/05/23 05:33 Temperature Pulse Rate 51 L 51 L Respiratory Rate Blood Pressure Pulse Oximetry Oxygen Delivery
[2023-04-05] MEDS: POTASSIUM CHLORIDE 20 MEQ ER TABLET PO (10:12)
[2023-04-05] MEDS: FOLIC ACID 1 MG TABLET PO (10:12)
[2023-04-05] MEDS: carvediloL 6.25 MG TABLET PO ×2 (10:12→20:46)
[2023-04-05] MEDS: FUROSEMIDE 40 MG TABLET PO (10:12)
[2023-04-05] MEDS: PYRIDOXINE HCL 25 MG TABLET PO (10:12)
[2023-04-05] MEDS: FOLIC ACID 0.4 MG TABLET 1.2 MG PO (10:12)
[2023-04-05] MEDS: DOCUSATE SODIUM 100 MG CAPSULE PO ×2 (10:12→20:45)
[2023-04-05] MEDS: CHOLECALCIFEROL 1,000 UNITS TABLET 5000 UNITS PO (10:13)
[2023-04-05] MEDS: CYANOCOBALAMIN 1,000 MCG TABLET 1000 MCG PO (10:13)
[2023-04-05] MEDS: CITALOPRAM HYDROBROMIDE 20 MG TABLET 40 MG BY MOUTH (10:13)
[2023-04-05] MEDS: ASPIRIN 81 MG ENTERIC TABLET PO (10:13)
[2023-04-05] MEDS: LOSARTAN POTASSIUM 12.5 MG TABLET PO (10:13)
[2023-04-05] MEDS: HEPARIN SOD/D5W 100 UNITS/ML 25,000 UNITS/250 ML BAG 8 UNITS IV CONT (12:14)
--- NOTE | 2023-04-05 18:28 | PM.IMPN ---
Progress Note: A&P Assessment and Plan (1) Acute non-ST elevation myocardial infarction (NSTEMI): Code(s): I21.4 - Non-ST elevation (NSTEMI) myocardial infarction Status: Acute (2) Borderline hyperglycemia: Code(s): R73.9 - Hyperglycemia, unspecified Status: Acute (3) Ischemic cardiomyopathy: Code(s): I25.5 - Ischemic cardiomyopathy Status: Acute (4) Cholelithiasis: Qualifiers: Biliary obstruction: without biliary obstruction Cholelithiasis location: other site Qualified Code(s): K80.80 - Other cholelithiasis without obstruction Code(s): K80.20 - Calculus of gallbladder without cholecystitis without obstruction Status: Acute (5) CAD (coronary artery disease): Qualifiers: Coronary Disease-Associated Artery/Lesion type: [place] artery [place] vs. transplanted heart: [place] heart Associated angina: with unstable angina Qualified Code(s): I25.110 - Atherosclerotic heart disease of [place] coronary artery with unstable angina pectoris Code(s): I25.10 - Atherosclerotic heart disease of [place] coronary artery without angina pectoris Status: Acute (6) Essential (primary) hypertension: Code(s): I10 - Essential (primary) hypertension Status: Acute (7) Hypotension due to drugs: Code(s): I95.2 - Hypotension due to drugs Status: Acute Plan 1. NSTEMI pt placed on heparin drip by overnight hospitalist troponins will not be trended because pt has planned angiography on Thursday If pt decompenstes clinically, may need urgent cath with cardiology already on coreg, asa bp well controlled, actually overly controlled and pt is hypotensive 04/05: bp under better control with 6.25 mg bid coreg, 12.5 mg qd losartan, and lasix 40 mg/day. on asa and heparin drip and lipitor 40. scheduled coronary angiography tomorrow 2. Ischemic cardiomyopathy Reports of EF of 53% on outpt echo, I am not able to see these records From admitting hospitalist, She reports her last echocardiogram was performed 1 week ago outpatient and her EF was 52% down from the year before a 58%.? She follows with Dr. Holland and Dr. Alvarez performed her cardiac catheterization in 2013.? She reports that her baby aspirin has been on hold for 3 or 4 days due to her anticipated cholecystectomy. ?? already on systolic chf medications and lasix appropriately hx of revascularization in 2014, RCA stenosis and LV systolic dysfunction, 20-25% as a result. had stenting at that time with Dr. Alvarez The pt seems euvolemic and lasix discontinuation should be considered, especially in light of her hypotension 3. Hypotension, drug induced lower coreg to 6.25 mg bid, losartan to 12.5 mg qd has been on lasix for >30 years for LE edema and anasarca presumably due to chf ct 40 mg/day. suspend if pt's cr rises 04/05: normotensive now. again, pt may not need lasix. 4. Hyperglycemia hb 4.9 on admission iss 04/05: stop bs checks 5. Hx of cholelithiasis or cholecystitis ct a/p on admission shows Possible gallbladder wall thickening which could reflect cholecystitis Evaluate this after coronary angiography Time Spent With Patient Time: 35 min Subjective Date/time seen: 04/05/23 18:28 Interval history: pt asymptomatic today. continues on heparin drip. Exam Const: General: comfortable and no acute distress Other: Pleasant overweight white female no apparent distress HENMT: Mouth: Yes moist mucous membranes Eyes: Sclera: sclerae normal Neck: Neck: supple and no JVD Resp: Effort & Inspection: normal respiratory effort Auscultation: clear to auscultation bilaterally Cardio: Rate: regular rate Rhythm: regular rhythm Other: PMI difficult to palpate, no murmur no gallop GI: GI Palp: Yes Soft to palpation Auscultation: normal bowel sounds Skin: General skin exam: normal color Neuro: Other: Alert and oriented x3 Extrem: Other: Good distal
[2023-04-05] MEDS: ALPRAZolam (*CRX) 0.25 MG TABLET PO (20:45)
[2023-04-05] MEDS: ATORVASTATIN 40 MG TABLET BY MOUTH (20:46)
[2023-04-05] MEDS: traZODone HCL 50 MG TABLET PO (20:46)
[2023-04-06] VITALS (26 sets, daily range): BP systolic 114–138; BP diastolic 46–66; PULSE 52–78; RESP 5–24; TEMP 36–37; O2SAT 92–100
[2023-04-06 05:06] LABS: Partial Thromboplastin Time 51.7 SECONDS (22.3-36.8)
[2023-04-06] MEDS: HEPARIN SODIUM 5,000 UNITS/ML VIAL 4000 UNITS IV PUSH (05:21)
[2023-04-06] MEDS: carvediloL 6.25 MG TABLET PO ×2 (10:21→20:12)
[2023-04-06] MEDS: ASPIRIN 81 MG ENTERIC TABLET PO (10:21)
[2023-04-06] MEDS: LOSARTAN POTASSIUM 12.5 MG TABLET PO (10:21)
--- NOTE | 2023-04-06 11:37 | PM.IMPN ---
Progress Note: A&P Assessment and Plan (1) Acute non-ST elevation myocardial infarction (NSTEMI): Code(s): I21.4 - Non-ST elevation (NSTEMI) myocardial infarction Status: Acute (2) Borderline hyperglycemia: Code(s): R73.9 - Hyperglycemia, unspecified Status: Acute (3) Ischemic cardiomyopathy: Code(s): I25.5 - Ischemic cardiomyopathy Status: Acute (4) Cholelithiasis: Qualifiers: Biliary obstruction: without biliary obstruction Cholelithiasis location: other site Qualified Code(s): K80.80 - Other cholelithiasis without obstruction Code(s): K80.20 - Calculus of gallbladder without cholecystitis without obstruction Status: Acute (5) CAD (coronary artery disease): Qualifiers: Coronary Disease-Associated Artery/Lesion type: [place] artery [place] vs. transplanted heart: [place] heart Associated angina: with unstable angina Qualified Code(s): I25.110 - Atherosclerotic heart disease of [place] coronary artery with unstable angina pectoris Code(s): I25.10 - Atherosclerotic heart disease of [place] coronary artery without angina pectoris Status: Acute (6) Essential (primary) hypertension: Code(s): I10 - Essential (primary) hypertension Status: Acute (7) Hypotension due to drugs: Code(s): I95.2 - Hypotension due to drugs Status: Acute Plan 1. NSTEMI pt placed on heparin drip by overnight hospitalist troponins will not be trended because pt has planned angiography on Thursday If pt decompenstes clinically, may need urgent cath with cardiology already on coreg, asa bp well controlled, actually overly controlled and pt is hypotensive 04/05: bp under better control with 6.25 mg bid coreg, 12.5 mg qd losartan, and lasix 40 mg/day. on asa and heparin drip and lipitor 40. scheduled coronary angiography tomorrow 04/06: BP better controlled now. Scheduled for angiography today. F/u cardiology recommendations after cath. 2. Ischemic cardiomyopathy Reports of EF of 53% on outpt echo, I am not able to see these records From admitting hospitalist, She reports her last echocardiogram was performed 1 week ago outpatient and her EF was 52% down from the year before a 58%.? She follows with Dr. Flores and Dr. Alvarez performed her cardiac catheterization in 2013.? She reports that her baby aspirin has been on hold for 3 or 4 days due to her anticipated cholecystectomy. ?? already on systolic chf medications and lasix appropriately hx of revascularization in 2013, RCA stenosis and LV systolic dysfunction, 20-25% as a result. had stenting at that time with Dr. Alvarez The pt seems euvolemic and lasix discontinuation should be considered, especially in light of her hypotension 04/06: pt's bp improved now with lowering bp meds. 3. Hypotension, drug induced lower coreg to 6.25 mg bid, losartan to 12.5 mg qd has been on lasix for >30 years for LE edema and anasarca presumably due to chf ct 40 mg/day. suspend if pt's cr rises 04/05: normotensive now. again, pt may not need lasix. 4. Hyperglycemia hb 4.9 on admission iss 04/05: stop bs checks 5. Hx of cholelithiasis or cholecystitis ct a/p on admission shows Possible gallbladder wall thickening which could reflect cholecystitis Evaluate this after coronary angiography Time Spent With Patient Time: 35 min Subjective Date/time seen: 04/06/23 11:37 Interval history: no new symptoms reported Exam Const: General: comfortable and no acute distress Other: Pleasant overweight white female no apparent distress HENMT: Mouth: Yes moist mucous membranes Eyes: Sclera: sclerae normal Neck: Neck: supple and no JVD Resp: Effort & Inspection: normal respiratory effort Auscultation: clear to auscultation bilaterally Cardio: Rate: regular rate Rhythm: regular rhythm Other: PMI difficult to palpate, no murmur no gallop GI: GI Palp: Yes Soft to palpation Auscultation: no
--- NOTE | 2023-04-06 11:43 | WPDMODSED ---
Moderate Sedation Note-Pt Data Patient Data Diagnosis: intermittent chest pain coronary artery disease with remote history of stenting to the mid right coronary artery Present Complaint: no complaints this morning other than procedural anxiety Procedure to be performed/Plan: left heart catheterization Allergies Allergy/AdvReac Type Severity Reaction Status Date / Time levofloxacin Allergy Unknown Nausea and Verified 04/04/23 06:07 Vomiting metronidazole Allergy Unknown Nausea and Verified 04/04/23 06:07 Vomiting Home Medications Medication Instructions Recorded Confirmed Type carvedilol 12.5 mg tablet 12.5 mg PO Q12H #180 tabs 08/17/20 04/04/23 Rx potassium chloride 10 mEq See Rx Instructions .Route 10/09/20 04/04/23 Rx capsule,extended release .COMPLEX #90 caps citalopram 40 mg tablet See Rx Instructions .Route 10/26/20 04/04/23 Rx .COMPLEX #90 tabs atorvastatin 40 mg tablet See Rx Instructions .Route 12/13/20 04/04/23 Rx .COMPLEX #90 tabs folic acid-vit B6-vit B12 2.2 1 tablet PO DAILY #90 tabs 12/19/20 04/04/23 Rx mg-25 mg-0.5 mg tablet (Folplex) albuterol sulfate 90 mcg/actuation 2 puff inhalation Q6H PRN 04/04/23 04/04/23 History aerosol inhaler Shortness Of Breath alprazolam 0.25 mg tablet 0.25 mg PO TID PRN Anxiety 04/04/23 04/04/23 History aspirin 81 mg tablet,delayed 81 mg PO DAILY 04/04/23 04/04/23 History release cholecalciferol (vitamin D3) 125 125 mcg PO DAILY 04/04/23 04/04/23 History mcg (5,000 unit) tablet (Vitamin D3) docusate sodium 100 mg capsule 100 mg PO Q12H 04/04/23 04/04/23 History ergocalciferol (vitamin D2) 1,250 50,000 unit PO WEEKLY 04/04/23 04/04/23 History mcg (50,000 unit) capsule furosemide 40 mg tablet 40 mg PO DAILY 04/04/23 04/04/23 History losartan 25 mg tablet 25 mg PO DAILY 04/04/23 04/04/23 History ondansetron 4 mg disintegrating 4 mg translingual Q6-8H PRN Nausea 04/04/23 04/04/23 History tablet And Vomiting trazodone 50 mg tablet 50 mg PO HS 04/04/23 04/04/23 History Current Medications: Active Medications Alprazolam (Alprazolam (*Crx) 0.25 Mg Tablet) 0.25 mg PO TID PRN PRN Reason: Anxiety Last Admin: 04/05/23 20:45 Dose: 0.25 mg Aspirin (Aspirin 81 Mg Enteric Tablet) 81 mg PO DAILY [facility] Last Admin: 04/06/23 10:21 Dose: 81 mg Atorvastatin Calcium (Atorvastatin 40 Mg Tablet) 40 mg BY MOUTH [facility] Last Admin: 04/05/23 20:46 Dose: 40 mg Carvedilol (Carvedilol 6.25 Mg Tablet) 6.25 mg PO Q12HR [facility] Last Admin: 04/06/23 10:21 Dose: 6.25 mg Citalopram Hydrobromide (Citalopram Hydrobromide 20 Mg Tablet) 40 mg BY MOUTH DAILY [facility] Last Admin: 04/05/23 10:13 Dose: 40 mg Cyanocobalamin (Cyanocobalamin 1,000 Mcg Tablet) 1,000 mcg PO QAM [facility] Last Admin: 04/05/23 10:13 Dose: 1,000 mcg Dextrose (Dextrose 50% 25 Gm/50 Ml Syringe) 12.5 gm IV PUSH PRN PRN; Protocol PRN Reason: Hypoglycemia Docusate Sodium (Docusate Sodium 100 Mg Capsule) 100 mg PO Q12H [facility] Last Admin: 04/05/23 20:45 Dose: 100 mg Folic Acid (Folic Acid 0.4 Mg Tablet) [facility] Admin: 04/05/23 10:12 Dose: 1.2 mg Folic Acid (Folic Acid 1 Mg Tablet) 1 mg PO QAM [facility] Last Admin: 04/05/23 10:12 Dose: 1 mg Furosemide (Furosemide 40 Mg Tablet) 40 mg PO DAILY [facility] Last Admin: 04/05/23 10:12 Dose: 40 mg Glucagon (Glucagon For Inj 1 Mg Vial) 1 mg IM PRN PRN; Protocol PRN Reason: Hypoglycemia Glucose (Glucose Oral Gel 15 Gm Of Glucse In 37.5 Gm Tube) 15 gm PO PRN PRN; Protocol PRN Reason: Hypoglycemia Heparin Sodium (Porcine) (Heparin Sodium 5,000 Units/Ml Vial) 4,000 units IV PUSH PRN PRN PRN Reason: aPTT less than 55 seconds Last Admin: 04/06/23 05:21 Dose: 4,000 units Heparin Sodium (Porcine) (Heparin Sodium 5,000 Units/Ml Vial) 2,500 units IV PUSH PRN PRN PRN Reason: aPTT 55 - 70 seconds Last Admin: 04/04/23 12:30 Dose: 2,500 units Heparin Sodium/Dextrose (Heparin Sodium/D5w 100 Units/Ml) 25,000 units in 25
[2023-04-06 11:56] LABS: Partial Thromboplastin Time 195.3 SECONDS (22.3-36.8)
--- NOTE | 2023-04-06 12:06 | PC.NURSE ---
Patient to cardiac supervisor dental laboratory, report given to JEFFREY Meneses. PTT lab reported to Zaira prior to patient transportation.
--- NOTE | 2023-04-06 12:43 | WPDCARDPROC ---
Cardiac Cath Procedure Note Date of procedure:: 04/06/23 Performing physician:: Anderson Alvarez MD Indication:: acute coronary syndrome / non ST elevation NM Brief clinical history:: this is a 67-year-old lady who underwent right coronary stenting in the remote past. She also has history of left ventricular systolic dysfunction and a chronic left bundle branch block. She came into the hospital over the weekend with an episode of abdominal and chest pain which was associated with a modest troponin rise. Because of this a follow-up angiogram has now been recommended. Procedure Procedure performed:: Left ventriculogram coronary angiogram Sedation/Medication given:: fentanyl 50 mg Versed 2 mg case start time Access site:: right femoral artery Estimated blood loss:: 25 cc Procedure note:: patient was brought to the cardiac catheterization lab in the postabsorptive state where the right femoral triangle was prepped and draped in the usual fashion. Anesthesia was provided with 1% lidocaine infiltrated locally. Using the modified Seldinger Norwegian sheath was placed into the right femoral artery and left heart catheterization was then carried out. I used a Norwegian angled pigtail catheter to measure left-sided hemodynamics and to inject left ventriculogram in the 30 degree ALANIZ projection. Following this pullback pressures were measured across the aortic valve. The pigtail catheter was then removed and I used a 5 Norwegian FL4 catheter to engage and inject the left coronary artery in multiple projections. Following this a 5 Norwegian JR4 catheter was used to engage and inject the right coronary artery in orthogonal projections. The procedure was then terminated. An angiogram was performed to the femoral artery through the sheath after which I elected to have the sheath removed with direct manual pressure. Patient was taken to the holding area for sheath removal. She was a stable condition and had no evidence of a groin hematoma upon leaving the cardiac catheterization lab. Findings:: Hemodynamics: Central aortic pressure is 128 over 46 left ventricle 120 over 5 end-diastolic pressure 14 there is no gradient pullback across the aortic valve. Left ventricle: The LV is mildly enlarged there is mild to moderate global hypokinesia of the global ejection fraction visually estimates to be about 35% The left main coronary artery is nicely patent the left anterior descending artery is a medium caliber vessel extending down to the apex. The LAD in its midportion has mild about 30-40% narrowing. A very tiny diminutive 1 mm 2nd diagonal branch takes origin in this segment which has a 90% ostial stenosis. The major diagonal branch above this has no significant disease. The circumflex is a medium caliber vessel giving rise to the marginal branch. The circumflex is smooth and angiographically free of disease. The right coronary artery is large caliber and dominant to the posterior circulation. There is stent material from the previous intervention in the mid right coronary artery which remains widely patent. There is no loss of lumen there are no other right coronary lesions identified. Conclusion:: 1. Right coronary dominant circulation with angiographically very mild coronary disease with modest 30-40% mid LAD stenosis and 90% ostial stenosis of a diminutive 2nd diagonal branch in this segment as well. No other significant disease and no flow-limiting disease in the LAD or circumflex 2. dominant right coronary artery with previously deployed stent which remains widely patent 3. moderate left ventricular systolic dysfunction ejection fraction is 35% by visual estimation Anderson Alvarez MD [facility]
[2023-04-06 12:49] LABS: Activated Clotting Time 143 SEC (74-137)
[2023-04-06] MEDS: SODIUM CHLORIDE 0.9% IV 1,000 ML 125 ML IV CONT (13:30)
[2023-04-06] MEDS: DOCUSATE SODIUM 100 MG CAPSULE PO (20:11)
[2023-04-06] MEDS: ATORVASTATIN 40 MG TABLET BY MOUTH (20:11)
[2023-04-06] MEDS: traZODone HCL 50 MG TABLET PO (20:11)
[2023-04-07] VITALS (12 sets, daily range): BP systolic 120–127; BP diastolic 43–54; PULSE 52–64; RESP 18–20; TEMP 35.6–36.6; O2SAT 96–99
--- NOTE | 2023-04-07 | ECHO_ITS ---
Patient Info Name: Daisy Rodriguez Age: 67 years : 1955 Gender: Female Ht: 63 in Wt: 188 lbs BSA: 1.98 m2 HR: 64 bpm BP: 127 / 54 mmHg Heart Rhythm: Sinus Rhythm Technical Quality: Fair Exam Date: 04/07/2023 1:55 PM Exam Location: Echo Lab Patient Status: Inpatient Admit Date: 04/04/2023 Staff Ordering Physician: Kenneth Jasso MD (jeison/porfirio) Post Office Markup Clerk: Mahsa Wu RDCS Attending Provider: Shanelle Fontaine DO Referring Physician: Romero SCOTT; Exam Type: CA echo dop color flow w con Study Info Indications - Evaluate LVEF Complete two-dimensional, color flow and Doppler transthoracic echocardiogram is performed with contrast to opacify the left ventricle and to improve the deliniation of the left ventricle endocardial borders. Contrast/Agitated Saline Contrast/Ag. Saline: Definity Amount: 2.00 ml Administered By: Mahsa Wu RDCS Existing IV Access: Yes IV Access Condition: patent with no signs of infiltration Summary 1. Left ventricular chamber dimension is moderately enlarged. 2. Left ventricular systolic function is mildly reduced, estimated at 45-50%. 3. The left ventricular diastolic function is grade I diastolic dysfunction. 4. Right ventricular systolic function is normal. 5. Left atrial chamber dimension is mildly enlarged. 6. There is mild mitral valve regurgitation. 7. There is mild tricuspid valve regurgitation. 8. There is trivial pericardial effusion. Left Ventricle Left ventricular chamber dimension is moderately enlarged. Left ventricular systolic function is mildly reduced, estimated at 45-50%. There is no increased left ventricular wall thickness. Left ventricular septal wall motion is abnormal with septal motion related to bundle branch block. The left ventricular diastolic function is grade I diastolic dysfunction. Right Ventricle Right ventricular chamber dimension is normal. Right ventricular systolic function is normal. Left Atria Left atrial chamber dimension is mildly enlarged. Right Atria Right atrial chamber dimension is normal. Atrial Septum Intact interatrial septum visualized by color flow imaging. Aortic Valve The aortic valve is trileaflet. There is no aortic valve stenosis. There is no aortic valve regurgitation. There is moderate aortic valve calcification. Pulmonic Valve The pulmonic valve is not well visualized. Mitral Valve There is mild mitral valve regurgitation. The mitral valve annulus is mildly calcified. Tricuspid Valve There is mild tricuspid valve regurgitation. Pericardium/Pleural There is trivial pericardial effusion. Inferior Vena Cava Normal inferior vena cava with >50% collapse upon inspiration consistent with normal right atrial pressure, 3 mmHg. Aorta The aortic root size at the sinus of Valsalva is normal. Left Ventricular Outflow Tract Name Value Normal LVOT 2D LVOT Diameter 1.96 cm LVOT Doppler LVOT Peak Gradient 6 mmHg LVOT Mean Gradient 2 mmHg LVOT VTI 21.16 cm LVOT VTI/AV VTI Ratio 0.71 LVOT Stroke Volume
[2023-04-07] MEDS: POTASSIUM CHLORIDE 20 MEQ ER TABLET PO (08:50)
[2023-04-07] MEDS: CITALOPRAM HYDROBROMIDE 20 MG TABLET 40 MG BY MOUTH (08:52)
[2023-04-07] MEDS: CHOLECALCIFEROL 1,000 UNITS TABLET 5000 UNITS PO (08:52)
[2023-04-07] MEDS: DOCUSATE SODIUM 100 MG CAPSULE PO (08:53)
[2023-04-07] MEDS: CYANOCOBALAMIN 1,000 MCG TABLET 1000 MCG PO (08:53)
[2023-04-07] MEDS: FOLIC ACID 1 MG TABLET PO (08:53)
[2023-04-07] MEDS: LOSARTAN POTASSIUM 12.5 MG TABLET PO (08:53)
[2023-04-07] MEDS: FUROSEMIDE 40 MG TABLET PO (08:53)
[2023-04-07] MEDS: FOLIC ACID 0.4 MG TABLET 1.2 MG PO (08:53)
[2023-04-07] MEDS: PYRIDOXINE HCL 25 MG TABLET PO (08:54)
[2023-04-07] MEDS: ASPIRIN 81 MG ENTERIC TABLET PO (08:59)
[2023-04-07] MEDS: CLOPIDOGREL BISULFATE 75 MG TABLET PO (13:28)
--- NOTE | 2023-04-07 13:30 | PM.PNCARD ---
Progress Note: A&P Assessment and Plan (1) Acute non-ST elevation myocardial infarction (NSTEMI): Code(s): I21.4 - Non-ST elevation (NSTEMI) myocardial infarction Status: Acute Assessment and Plan: Cardiac catheterization 04/06 showed: Right coronary dominant circulation with angiographically very mild coronary disease with modest 30-40% mid LAD stenosis and 90% ostial stenosis of a diminutive 2nd diagonal branch in this segment as well.? No other significant disease and no flow-limiting disease in the LAD or circumflex. Dominant right coronary artery with previously deployed stent which remains widely patent. Moderate left ventricular systolic dysfunction ejection fraction is 35% by visual estimation. Medical management with: ASA 81mg once daily Will start Plavix for medical management of NSTEMI. High intensity statin Beta kyaw (2) Ischemic cardiomyopathy: Code(s): I25.5 - Ischemic cardiomyopathy Status: Acute Assessment and Plan: LV angiogram with LVEF approximately 35%. Will obtain echocardiogram to confirm. Continue Losartan, Coreg (3) Mixed hyperlipidemia: Code(s): E78.2 - Mixed hyperlipidemia Status: Acute Assessment and Plan: Continue statin (4) Essential (primary) hypertension: Code(s): I10 - Essential (primary) hypertension Status: Acute Assessment and Plan: Continue Coreg and Losartan. Plan Outpatient follow up with Dr. Cha. Subjective Date/time seen: 04/07/23 13:30 Interval history: Reason for visit: NSTEMI HPI: This is a 67-year-old woman I am seeing at the request of the hospitalist because of concern regarding acute coronary syndrome/non ST elevation NM.? This is a patient coronary artery disease and left ventricular systolic dysfunction.? She came into the hospital last evening because of some symptoms of epigastric abdominal discomfort, right upper quadrant pain that then radiated into the chest and into the interscapular region of her back.? The symptoms began after she ate a piece of apple pie which is the reason she was concerned these were symptoms are related to her gallbladder.? She has recently been found to have gallstones and apparently is scheduled to have a cholecystectomy done at another hospital on Thursday.? She says that she has had symptoms like this with some postprandial pain that have been attributed to gallstones.? She is not noticing any exertional symptoms such as chest pain shortness of breath she has been denying any symptoms of orthopnea PND or edema.? She has a history of left ventricular systolic dysfunction that was established back in 2013.? At that time she had a low ejection fraction of 20-25%.? She was brought for anterior angiography at the time of that diagnosis and was found to have moderate disease in the mid right coronary artery.? Despite it being moderate angiographically it was flow limiting by FFR testing and she underwent stenting of that lesion with a good angiographic result.? She was followed in our office for a short time after that but then failed follow-up because she has spent most of the last few years dealing with her caring for him as he was developing severe dementia.? Her recently and she has been trying to attend to her health more than she has in the past.? She states that she otherwise generally feels well and does not have any significant complaints at this time.? Following admission to the hospital emergency room yesterday her troponin levels did rise moderately raising concern about ACS.? She has been treated with aspirin heparin and nitrates and seems to be stable she is no longer symptomatic at all.? Electrocardiogram shows sinus rhythm with left bundle branch block which is stated above is chronic.? The patient did reestablish care in our office just recently saw my partner, Dr. Cha who performed an echocardiogram in the office which look much better with an ejection
--- NOTE | 2023-04-07 14:10 | PM.DS ---
DS: Admitting Diagnosis Discharge Date 04/07/23 Admitting Diagnosis chest pain DS: Discharge Diagnosis Discharge Diagnosis (1) Hypotension due to drugs: Code(s): I95.2 - Hypotension due to drugs Status: Acute (2) Ischemic cardiomyopathy: Code(s): I25.5 - Ischemic cardiomyopathy Status: Acute (3) CAD (coronary artery disease): Qualifiers: Coronary Disease-Associated Artery/Lesion type: [place] artery Nikolai vs. transplanted heart: [place] heart Associated angina: with unstable angina Qualified Code(s): I25.110 - Atherosclerotic heart disease of [place] coronary artery with unstable angina pectoris Code(s): I25.10 - Atherosclerotic heart disease of [place] coronary artery without angina pectoris Status: Acute (4) Acute non-ST elevation myocardial infarction (NSTEMI): Code(s): I21.4 - Non-ST elevation (NSTEMI) myocardial infarction Status: Acute DS: Summary Hospital Course Hospital Course: 67F w/ PMH CAD s/p stent, anxiety and depression, HTN, HLD, ischemic cardiomyopathy, LBBB, ZACH, obesity, anasarca, presented with chest pain. She was dx with NSTEMI, and underwent cardiac catheterization on 04/06 demonstrating the following: Right coronary dominant circulation with angiographically very mild coronary disease with modest 30-40% mid LAD stenosis and 90% ostial stenosis of a diminutive 2nd diagonal branch in this segment as well.? No other significant disease and no flow-limiting disease in the LAD or circumflex. Dominant right coronary artery with previously deployed stent which remains widely patent. Moderate left ventricular systolic dysfunction ejection fraction is 35% by visual estimation. No interventions conducted during the cath. She is having a TTE on day of discharge to confirm the EF, and is to follow up on this with her usual child care worker, Dr. Cha. The patient's chest pain was reported to be sharp in nature, and radiated from her right upper quadrant. Resolved. However, she was undergoing evaluation prior to admission for elective gallbladder surgery and is advised to follow up with her surgeon after cardiac risk stratification post admission. As for her NSTEMI mgmt, she will continue ASA 81mg daily, lipitor 40mg qhs, coreg, and plavix which was added this admission. Ms. Rodriguez did have hypotension early on in her admission, this certainly could be the culprit for her ischemia. Her losartan, coreg, and lasix were all decreased and her SBP remained stable in 120's. It is possible she was being overtreated as her HTN improved when she lost 27 lbs in a few months after being prescribed phentermine. She isn't currently taking phentermine and she was counseled on the risks of this, to follow up with PCP and cardiology. All of her questions were answered, pt acknowledged the plan moving forward and is dc'ed in stable condition to home. More than 30 minutes spent on discharge planning and documentation. Time Spent with Patient Time attestation: Total time spent providing and/or coordinating discharge services: Exam Const: General: cooperative and no acute distress Resp: Effort & Inspection: normal respiratory effort Auscultation: clear to auscultation bilaterally Cardio: Rate: regular rate Rhythm: regular rhythm Heart sounds: S1 normal heart sound present and S2 normal heart sound present GI: GI Palp: No abdominal tenderness Auscultation: normal bowel sounds Discharge Plan Discharge Attending physician on discharge: Lavinia Waggoner Consulting providers: Anderson Alvarez Discharging Clinician: Lavinia Waggoner Patient Disposition: Home, Self-Care Activity: september shower Diet: heart healthy Discharge Instructions: As discussed, track your daily weights and bring to your child care worker, Dr. Semaj Cha will give you clearance for your elective gallbladder surgery. Patient Instructions: Antibiotic Form, Heart Attack (DC), Heart Failure (DC), Ch
[2023-04-07] MEDS: PERFLUTREN LIPID MICROSPHERES 1.5 ML VIAL DILUTED TO 10 ML TOTAL VOLUME IV PUSH (14:45)
--- NOTE | 2023-04-07 15:08 | IVDEFINITY ---
Prior to administration of IV Definity the patient was educated on the risks and benefits of the imaging enhancing agent including potential adverse side effects. The patient verbalized understanding. Allergies were verified. No exclusion criteria were identified and at least one of the following inclusion criteria were met: 1) physician request, 2) patient technically difficult to image (per the [place] [employer]chocardi[employer] guidelines of two or more segments not discernable within the apical view), or 3) questionable left ventricular function. ?
== END 2023-04-07 15:38 | disposition home or self-care (01) | DRG 282 ==
LOC: ANHED 04-04 04:00 → ANHIMU 04-04 05:13
PROVIDERS: Internal Medicine; Specialist; Admitting Provider Internal Medicine; Emergency Provider Emergency Medicine; PCP Family Medicine; Visit Provider General Practice
PROC: 4A023N7 Measurement of Cardiac Sampling and Pressure, Left Heart, Percutaneous Approach (ICD-10-PCS; CPT 93452; principal; 2023-04-06 11:30)
DX: I21.4 Non-ST elevation (NSTEMI) myocardial infarction (principal); I11.0 Hypertensive heart disease with heart failure; I50.9 Heart failure, unspecified; I25.10 Atherosclerotic heart disease of native coronary artery without angina pectoris; I25.5 Ischemic cardiomyopathy; I95.2 Hypotension due to drugs; K80.20 Calculus of gallbladder without cholecystitis without obstruction; R73.9 Hyperglycemia, unspecified; E78.5 Hyperlipidemia, unspecified; Z95.5 Presence of coronary angioplasty implant and graft
CPT/HCPCS: 36415; 71045; 74177; 80053; 81001; 81025; 82948; 83036; 83690; 83880; 84484; 85025; 85380; 85610; 85730; 93005; 93458; 96361; 96374; 96375; 96376; 99285; A9270; C1887; C1894; C8929; J0461; J0583; J1170; J1644; J1885; J2250; J2405; J2765; J3010; J7030; J7040; Q9957; Q9967

== ENCOUNTER 2023-04-18 19:27 | Emergency (ER) | payer MEDICARE, BC, SELFPAY ==
--- NOTE | ~2023-04-18 | CT_ITS ---
EXAMINATION: CT abdomen pelvis w con DATE: 04/18/2023 21:11 INDICATION: Eval gb for cholecystitis TECHNIQUE: Computed tomography (CT) of the abdomen and pelvis was performed with 100 mL Omnipaque-350 intravenous contrast. Automated exposure control and iterative reconstruction technique were employe d. The dose-length product was 696.46 mGy-cm. COMPARISON: 04/03/2023. FINDINGS: Lower thorax: Bilateral breast implants. Coronary artery calcifications. Liver: Multiple simple cysts. Multiple subcentimeter hypodensities, too small to characterize but mos t likely represent cysts. Biliary/Gallbladder: Gallbladder is normal. No wall thickening or stones. Suggestion of minimal infla mmatory change in the gallbladder fossa at the gallbladder neck. Minimal but apparently slightly incr eased intrahepatic bile duct dilation. Normal common bile duct. Pancreas: No mass or duct dilation. Spleen: Normal. Adrenals:No mass. Kidneys: No suspicious mass, obstructing stone, or hydronephrosis. Subcentimeter right midpole hypode nsity, too small to characterize but most likely represents a cyst. GI tract: No small or large bowel dilation. Normal appendix. Diverticulosis without diverticulitis. Mesentery/Peritoneum: No ascites, mass, or free air. Retroperitoneum: No mass. Atherosclerotic abdominal aortic and/or arterial calcifications. Pelvis: Pelvic organs are within normal limits. Soft Tissues: Soft tissues and body wall unremarkable. Bones: No acute osseous finding. IMPRESSION: Possible mild inflammatory change of the gallbladder neck/gallbladder fossa. Very mild but apparently increased intrahepatic duct dilation. Correlate with upper quadrant pain and biliary labs. Consider right upper quadrant ultrasound. Otherwise, no acute abdominopelvic process detected. Reviewed, dictated and finalized at location K. [employer]LE[employer]ARD IMPRESSION: Possible mild inflammatory change of the gallbladder neck/gallbladder fossa. Ve ry mild but apparently increased intrahepatic duct dilation. Correlate with upp er quadrant pain and biliary labs. Consider right upper quadrant ultrasound. Otherwise, no acute abdominopelvic process detected.
--- NOTE | ~2023-04-18 | XR_ITS ---
EXAMINATION: XR chest 2V Exam Date/Time: 04/18/2023 20:24 LIGHTING SPECIALIST HISTORY: chest pain, STEMI 10 DAYS AGO Comparison: 04/03/2023, 09/05/2003. RESULT: Lines, tubes, and devices: None. Lungs and pleura: Clear. Cardiomediastinal silhouette: Stable. Other: No acute osseous or upper abdominal finding. IMPRESSION: No acute cardiopulmonary process. Reviewed, dictated and finalized at location K. TING SPECIALIST
--- NOTE | 2023-04-18 19:27 | ECG_ITS ---
Measurements Intervals [place] Rate: 72 P: 40 NH: 126 QRS: 19 QRSD: 147 T: 116 QT: 418 QTc: 458 Interpretive Statements SINUS RHYTHM WITH SINUS ARRHYTHMIA LEFT BUNDLE BRANCH BLOCK Electronically Signed On 04-19-2023 10:27:04 HEAD OF MAINTENANCE by Pablo Anderson M.D.
[2023-04-18 19:28] VITALS: BP 134/58; PULSE 64; RESP 16; TEMP 36.8; O2SAT 97
[2023-04-18 20:04] LABS: Basophils Absolute Auto 0.1 K/mm3 (0.0-0.1); Basophils Percent Auto 0.9 % (0.2-1.2); Eosinophils Absolute Auto 0.1 K/mm3 (0-0.3); Hematocrit 39.3 % (37.0-47.0); Hemoglobin 13.2 g/dL (12.0-15.0); Immature Granulocyte Absolute 0.03 K/mm3 (0.00-0.031); Immature Granulocyte Percent A 0.5 % (0-0.5); Lymphocytes Absolute Auto 1.48 K/mm3 (0.9-3.2); Lymphocytes Percent Auto 26.8 % (18.3-44.2); Mean Corpuscular HGB Conc 33.6 g/dl (32-36); Mean Corpuscular Hemoglobin 30.9 pg (26-34); Mean Platelet Volume 10.9 fl (7.4-10.4); Monocytes Absolute Auto 0.5 K/mm3 (0.1-0.6); Monocytes Percent Auto 8.1 % (2.6-8.5); Neutrophils Absolute Auto 3.4 K/mm3 (1.3-6.7); Neutrophils Percent Auto 61.7 % (45.5-73.1); Platelet Count Result 219 k/mm3 (150-375); Red Blood Count 4.27 M/mm3 (4.2-5.4); Red Cell Distribution Width 13.6 % (11.5-14.5); White Blood Count 5.5 K/mm3 (4.5-10.0)
[2023-04-18 20:15] LABS: Prothrombin Time 13.7 Seconds (11.1-14.7)
[2023-04-18 20:16] LABS: Partial Thromboplastin Time 26.7 SECONDS (22.3-36.8)
[2023-04-18 20:17] LABS: Alanine Aminotransferase 92 U/L (6-35); Albumin Level 4.4 g/dL (3.5-5.1); Alkaline Phosphatase 132 U/L (38-126); Anion Gap 8 mmol/L (8-16); Aspartate Amino Transferase 159 U/L (14-36); Bilirubin,Total 0.8 mg/dL (0.2-1.3); Blood Urea Nitrogen 14 mg/dL (7-17); Calcium 9.5 mg/dL (8.4-10.2); Carbon Dioxide 26 mmol/L (22-30); Chloride 104 mmol/L (98-107); Estimated CRCL calculation 59 ml/min; Estimated Glomerular Filt Rate > 60; Glucose 99 mg/dL (65-110); Lipase 140 U/L (23-300); Potassium 3.9 mmol/L (3.4-5.0); Sodium 138 mmol/L (137-145)
[2023-04-18 20:29] LABS: Troponin I < 0.012 ng/mL (0.000-0.034)
[2023-04-18] MEDS: ACETAMINOPHEN 500 MG TABLET 1000 MG PO (21:17)
[2023-04-18] MEDS: ONDANSETRON INJ 4 MG/2 ML VIAL IV PUSH (21:18)
[2023-04-18] MEDS: SODIUM CHLORIDE 0.9% IV 1,000 ML 999 ML IV CONT (21:19)
[2023-04-18] MEDS: HYDROmorphone HCL INJ (*CRX) 1 MG/ML SYR 0.5 MG IV PUSH (21:20)
[2023-04-18 21:30] VITALS: BP 117/77; PULSE 63; RESP 16; O2SAT 100
[2023-04-18 21:31] LABS: Appearance Urine Clear (Clear); Bacteria Urine None Seen /hpf; Bilirubin Urine Negative (Negative); Blood Urine Negative (Negative); Color Urine Yellow (Yellow); Glucose Urine UA Negative (Negative); Ketones Urine Negative (Negative); Leukocyte Esterase Ur Trace LEU/UL (Negative); Nitrate Urine Negative (Negative); Non Pathogenic Casts 0-2; Protein Urine Negative (Negative); RBC Urine 0-2 /hpf (0-2); Specific Grav Ur 1.017 (1.001-1.035); Squamous Epithelial Cell Urine None seen /hpf (Few); WBC Urine 0-5 /hpf; pH Urine 7.5 (5.0-9.0)
[2023-04-18 21:34] LABS: Add Urine Microscopic? YES
--- NOTE | 2023-04-18 21:35 | ED.GENADULT ---
HPI - General Adult General Chief complaint: Chest Pain Stated complaint: chest pain Time Seen by Provider: 04/18/23 20:38 History of Present Illness HPI narrative: This is a 67-year-old female presenting with right upper quadrant pain. Patient has cholelithiasis and was scheduled for an outpatient cholecystectomy that was postponed due to an NSTEMI. Today she developed pain after she ate dinner. It is a sharp pain in the right upper quadrant radiates to her back. Six out 10 intensity and constant. Similar to his previous gallbladder attack for the last 3-4 months. Worse with deep breaths in eating. Some nausea but no vomiting, no fever chills chest pain difficulty breathing. While the patient has a surgeon at [place] she is unhappy with that hospital and rather have a surgery performed here at [place]. Patient presents here 10 days ago with similar pain although at that time it radiated to the back her chest into her arms. She was diagnosed with NSTEMI and underwent angiography with no intervention made. Related Data Home Medications Medication Instructions Recorded Confirmed albuterol sulfate 90 mcg/actuation 2 puff inhalation Q6H PRN 04/04/23 04/04/23 aerosol inhaler Shortness Of Breath alprazolam 0.25 mg tablet 0.25 mg PO TID PRN Anxiety 04/04/23 04/04/23 aspirin 81 mg tablet,delayed 81 mg PO DAILY 04/04/23 04/04/23 release cholecalciferol (vitamin D3) 125 125 mcg PO DAILY 04/04/23 04/04/23 mcg (5,000 unit) tablet (Vitamin D3) docusate sodium 100 mg capsule 100 mg PO Q12H 04/04/23 04/04/23 ergocalciferol (vitamin D2) 1,250 50,000 unit PO WEEKLY 04/04/23 04/04/23 mcg (50,000 unit) capsule ondansetron 4 mg disintegrating 4 mg translingual Q6-8H PRN Nausea 04/04/23 04/04/23 tablet And Vomiting trazodone 50 mg tablet 50 mg PO HS 04/04/23 04/04/23 Allergies Allergy/AdvReac Type Severity Reaction Status Date / Time levofloxacin Allergy Unknown Nausea and Verified 04/18/23 20:33 Vomiting metronidazole Allergy Unknown Nausea and Verified 04/18/23 20:33 Vomiting [facility] Past Medical History Medical History Anxiety Basal cell carcinoma (~2009) Resected from the tip of the nose Bilateral cataracts CAD (coronary artery disease) Depression Diverticulosis With history of diverticulitis Essential hypertension Exercise-induced asthma Hepatic steatosis Hyperlipidemia Ischemic cardiomyopathy With an EF as low as 25% in 2013 with most recent EF 2022 of 52% Left bundle branch block Obesity (BMI 30.0-34.9) ZACH (obstructive sleep apnea) Patient reports that her study demonstrated mild obstructive sleep apnea and CPAP was not recommended Peripheral neuropathy Postmenopausal Surgical History Surgical History H/O colonoscopy History of arthroscopy of left knee S/P right coronary artery (RCA) stent placement (08/2013) Family History Family History Mother Family history of cardiac disorder Family history of diabetes mellitus in first degree relative Family history of coronary artery disease Cerebrovascular accident Father Family history of malignant neoplasm of esophagus Family history of lung cancer Sibling Family history of coronary artery disease Family history of diabetes mellitus in first degree relative Social History Social History Social History: She has been since March 2021. Her suffered from early-onset dementia and at 57 years old. She has a small dog at home that weighs about 15 lb. She is independent in her activities of daily living. She has 2 living children her in the 40s and are healthy. She is a lifelong nonsmoker. She rarely drinks alcohol and only in moderate amounts. Code status: Full code (however she would not want to be on a
--- NOTE | 2023-04-18 22:25 | ECG_ITS ---
Measurements Intervals [place] Rate: 54 P: 45 IA: 146 QRS: 37 QRSD: 145 T: 109 QT: 465 QTc: 443 Interpretive Statements SINUS BRADYCARDIA LEFT BUNDLE BRANCH BLOCK Electronically Signed On 04-19-2023 10:29:21 FIELD MARKETING ASSOCIATE by Pablo Anderson M.D.
[2023-04-18 22:30] VITALS: BP 124/50; PULSE 69; RESP 19; O2SAT 92
[2023-04-19] MEDS: HYDROmorphone HCL INJ (*CRX) 1 MG/ML SYR 0.5 MG IV PUSH (00:20)
[2023-04-19 00:21] VITALS: BP 113/65; PULSE 58; RESP 17; O2SAT 99
[2023-04-19] MEDS: FAMOTIDINE 20 MG/2 ML VIAL IV PUSH (00:21)
[2023-04-19 00:28] VITALS: BP 114/56; PULSE 54; RESP 15; O2SAT 92
--- NOTE | 2023-04-19 01:42 | ECG_ITS ---
Measurements Intervals [place] Rate: 51 P: 30 [place]: 148 QRS: 16 QRSD: 144 T: 120 QT: 457 QTc: 421 Interpretive Statements SINUS BRADYCARDIA LEFT BUNDLE BRANCH BLOCK Electronically Signed On 04-19-2023 10:30:22 JUNIOR ENGINEER by Pablo Anderson M.D.
[2023-04-19 03:15] VITALS: BP 135/87; PULSE 90; RESP 19; O2SAT 100
== END 2023-04-19 03:15 | disposition home or self-care (01) ==
PROVIDERS: Student in an Organized Health Care Education/Training Program; Emergency Provider Emergency Medicine; PCP Family Medicine
DX: K80.20 Calculus of gallbladder without cholecystitis without obstruction (principal); I25.2 Old myocardial infarction; F41.9 Anxiety disorder, unspecified; I25.10 Atherosclerotic heart disease of native coronary artery without angina pectoris; I10 Essential (primary) hypertension; I25.5 Ischemic cardiomyopathy; J45.990 Exercise induced bronchospasm; E78.5 Hyperlipidemia, unspecified; E66.9 Obesity, unspecified; Z68.31 Body mass index [BMI] 31.0-31.9, adult; G47.33 Obstructive sleep apnea (adult) (pediatric); G62.9 Polyneuropathy, unspecified; Z95.5 Presence of coronary angioplasty implant and graft; Z85.828 Personal history of other malignant neoplasm of skin; Z79.82 Long term (current) use of aspirin; I44.7 Left bundle-branch block, unspecified; R00.1 Bradycardia, unspecified
CPT/HCPCS: 36415; 71046; 74177; 80053; 81001; 83690; 84484; 85025; 85610; 85730; 93005; 96361; 96374; 96375; 96376; 99284; A9270; J1170; J2405; J7030; Q9967

== ENCOUNTER 2023-05-25 12:16 | Outpatient (CLI) | payer MEDICARE, BC, SELFPAY ==
[2023-05-25 12:46] LABS: Amylase 123 U/L (30-110)
== END 2023-05-25 12:17 | disposition home or self-care (01) ==
LOC: ANHSURGERY 12:20
PROVIDERS: PCP Family Medicine; Visit Provider Surgery
DX: K80.20 Calculus of gallbladder without cholecystitis without obstruction (principal); Z01.818 Encounter for other preprocedural examination
CPT/HCPCS: 36415; 82150; 86850; 86900; 86901

== ENCOUNTER 2023-05-29 00:35 | Day surgery (SDC) | payer MEDICARE, BC, SELFPAY ==
[2023-05-22 15:19] VITALS: BMI 31.4
--- NOTE | 2023-05-22 15:53 | PC.NURSE ---
PRE-OP INSTRUCTIONS PLEASE READ CAREFULLY Report to the Outpatient Waiting Room, entrance under the green pavilion located off [facility], at time _1000_ on date _05/29/23_. Planned Procedure Time: _1200_. Time changes happen often and if your time is changed the preop area will call you the afternoon before. - You and your visitor will be asked to self-screen and do not enter if you have any COVID symptoms. - A mask is optional within the hospital at this time. Patients may have clear liquids (water, carbonated beverages, clear teas, apple juice) until 3 hours prior to surgery (0900 AM) with a maximum of 20 ounces. - No food from midnight until time of surgery Take the following medications with a SIP of water the morning of surgery: _CARVEDILOL, CITALOPRAM, & ALPRAZOLAM, PAIN MED IF NEEDED_ DO NOT STOP ANY OF YOUR OTHER PRESCRIPTION MEDICATIONS PRIOR TO SURGERY ?EXCEPT THE FOLLOWING Medications to discontinue per DR. DEL RIO/DR. OCHOA - _PLAVIX 5 DAYS PRIOR TO SURGERY, Date to take last dose 05/23/23_ Medications to discontinue per ANESTHESIA - _VITAMINS/SUPPLEMENTS 3 DAYS PRIOR TO SURGERY, Date to take last dose 05/25/23_ Please no make-up, nail japanese, hairspray, perfume, deodorant, or body powder the day of surgery. No jewelry (including any body piercings) or valuables the day of surgery, leave them at home. Please take a shower or bath the night before, or the morning of, surgery with an antibacterial soap. Wear comfortable, loose fitting clothing. - Jewelry must be removed prior to entering the operating room. Rings and piercings that are not removed may be cut off. - The hospital will not accept responsibility for valuables. - Please leave all valuables, including medications, at home the day of surgery. If you are going home after surgery, a licensed petrol tanker driver must drive you home. - NO public transportation without another adult if you receive anesthesia. - We recommend that an adult stay with you for 24 hours following discharge. - We also recommend that you do not drive, make important decision, drink alcoholic beverages, or take any drugs that were not prescribed by your health care provider for at least 24 hours after your discharge time. Follow any additional instructions given to you from your surgeon. If you or anyone in your household have experienced Covid symptoms in the past week, please notify your surgeon or the nurse liaison at the phone number below for possible testing. Telephone instructions given to _PATIENT_and asked if any additional questions and then verbalized understanding. Patient advised to call surgeon office or pre surgery nurse liaison [phone] if any additional questions.
[2023-05-29] VITALS (8 sets, daily range): BP systolic 122–137; BP diastolic 46–67; PULSE 57–88; RESP 12–18; TEMP 36.2–37; O2SAT 97–100
--- NOTE | ~2023-05-29 | XR_ITS ---
XR cholangiogram surg 1st inj DATE: 05/29/2023 13:52 INDICATION: Cholecystectomy TECHNIQUE: Intraoperative cholangiogram 12.4 seconds fluoroscopy time 3.77 mGy COMPARISON: 04/28/2023 CT abdomen pelvis FINDINGS: Normal contrast opacification of the cystic duct remnant, common bile duct, common hepatic duct and opacification of left and right bile ducts, without stricture, filling defect or obstruction . Contrast material flows freely into the duodenum. IMPRESSION: Negative operating room cholangiogram Reviewed, dictated and finalized at [facility]. Reviewed, dictated and finalized at location [facility]. . DIRECTOR PRODUCT MANAGEMENT
[2023-05-29] MEDS: ACETAMINOPHEN 500 MG TABLET 1000 MG PO (10:25)
[2023-05-29] MEDS: KETOROLAC 15 MG/ML VIAL (*BKC) IV PUSH (10:25)
[2023-05-29] MEDS: LACTATED RINGERS 1,000 ML 30 ML IV CONT ×2 (10:57→14:01)
--- NOTE | 2023-05-29 11:51 | WPDHPUPDATE1 ---
History and Physical Update Update Date/Time: 05/29/23 11:51 History and Physical has been reviewed, including an updated exam of the patient. There are NO changes in the patient's condition. Risks, benefits, and alternatives have been discussed and questions answered. Patient agrees to proceed with procedure.
[2023-05-29] MEDS: ceFAZolin 2 GM/D5W 50 ML 2 GM/50 ML BAG IVPB (12:41)
--- NOTE | 2023-05-29 14:02 | W.PM.PROC2 ---
Procedure Note - Detailed Date of Procedure 05/29/23 Pre-op Diagnosis Acute Calculous Cholecystitis Post-op Diagnosis Same Procedure Performed 1. Laparoscopic cholecystectomy with intraoperative cholangiogram 2. Excision of 5 mm right upper quadrant abdominal skin lesion Surgeon Mikhail Lewis, DO Anesthesia General and Local (0.5% bupivacaine) Indications This is a 67-year-old woman who was hospitalized recently for right upper quadrant and epigastric abdominal pain. She was found to have evidence of acute calculous cholecystitis and elevated liver enzymes. She also had evidence of a non-STEMI. Cardiac catheterization showed no vessels that could be revascularized. Her semiconductor packages leak tester has cleared her for surgery. She is on aspirin and Plavix. Cardiology okayed stopping Plavix for 5 days prior to the surgery. Discussions were made with the patient about treatment options and decision was made to proceed with laparoscopic cholecystectomy with intraoperative cholangiogram, possible open. In preop, the patient also noted a skin lesion that she wanted removed. There was a 5 mm raised skin lesion in the right upper quadrant abdominal skin. Decision made to add this to the procedure consent as well. Findings Laparoscopic cholecystectomy with cholangiogram was performed. The patient's gallbladder had a few pericholecystic adhesions and was slightly dilated. The cystic duct appeared slightly enlarged but there did not appear to be any stones within the cystic duct. Intraoperative cholangiogram was performed using Omnipaque contrast and fluoroscopy. No filling defects were identified within the biliary tree and there was no evidence obstruction. The gallbladder was then removed and sent to the lab for pathology. There did appear to be a couple possible small stones within the body of gallbladder. At the conclusion of the procedure I then made an elliptical incision around the skin lesion in the right upper quadrant using a 15 blade scalpel. This skin lesion was completely excised and sent to the lab for pathology. This appeared possibly an inclusion cyst or a raised irritated skin tag. Description of Procedure Procedure as well as risks, benefits, and alternatives were discussed with patient. Written consent was obtained and placed in chart prior to procedure. The patient was brought back to surgical suite. Patient was placed in supine position on operating table. Time-out was done to confirm patient and procedure. Patient was then intubated by the anesthesia department. Abdomen was prepped and draped in sterile fashion using chlorhexidine prep. 0.5% bupivacaine with epinephrine was infiltrated at each site of incision. An 11 millimeter vertical incision was made at the inferior portion of the umbilicus using a 15 blade scalpel. Blunt dissection was carried down to the linea alba. The linea alba was then incised using a 15 blade scalpel. The peritoneum was then bluntly entered. An 11 millimeter trocar was inserted and carbon dioxide insufflation was used to create a pneumoperitoneum. The camera was inserted and the abdomen was inspected. The patient was placed in reverse Trendelenberg position and rotated slightly to the left. A 5 millimeter incision was made in the epigastric region, and a 5 millimeter trocar was inserted under direct visualization. Two 5 millimeter incisions were made in the right upper quadrant, and two 5 millimeter trocars were inserted under direct visualization. The gallbladder was identified and grasped at the fundus and retracted superiorly. It was then grasped at the infundibulum retracted laterally. Careful dissection around the neck of the gallbladder was performed using blunt dissection with a [place] grasper and hook electrocautery. The cystic duct was identified, and a window was created behind it. The cystic artery was also identified and a window was created behind it. The critical view of safety was identified,
--- NOTE | 2023-05-29 14:08 | WPDANESEPPF ---
Anes - Initial Pre Proc Eval Procedure: Operation Date: 05/29/23 12:00 Proposed Procedures p Laparoscopic Cholecystectomy with Intraoperative Cholangiogram, Possible Open - Mikhail Lewis DO Date/Time: 05/29/23 14:08 Surgeon: Mikhail Lewis DO Pre Op Diagnosis: Acute Cholecystitis Patient Data Age: 67 Gender: F Height: 1.6 m Weight: 78.6 kg Last Vital Signs Temp 97.2 F L 05/29/23 14:01 Pulse 88 05/29/23 14:01 Resp 14 05/29/23 14:01 BP 132/63 05/29/23 14:01 Pulse Ox 100 05/29/23 14:01 O2 Del Method Simple Face Mask 05/29/23 14:01 O2 Flow Rate 8 05/29/23 14:01 Allergies Allergy/AdvReac Type Severity Reaction Status Date / Time levofloxacin Allergy Unknown Nausea and Verified 05/29/23 10:29 Vomiting metronidazole Allergy Unknown Nausea and Verified 05/29/23 10:29 Vomiting Home Medications Medication Instructions Recorded Confirmed Type potassium chloride 10 mEq See Rx Instructions .Route 10/09/20 05/22/23 Rx capsule,extended release .COMPLEX #90 caps citalopram 40 mg tablet See Rx Instructions .Route 10/26/20 05/29/23 Rx .COMPLEX #90 tabs atorvastatin 40 mg tablet See Rx Instructions .Route 12/13/20 05/22/23 Rx .COMPLEX #90 tabs folic acid-vit B6-vit B12 2.2 1 tablet PO DAILY #90 tabs 12/19/20 05/22/23 Rx mg-25 mg-0.5 mg tablet (Folplex) albuterol sulfate 90 mcg/actuation 2 puff inhalation Q6H PRN 04/04/23 05/22/23 History aerosol inhaler Shortness Of Breath alprazolam 0.25 mg tablet 0.25 mg PO TID PRN Anxiety 04/04/23 05/29/23 History aspirin 81 mg tablet,delayed 81 mg PO DAILY 04/04/23 05/29/23 History release docusate sodium 100 mg capsule 100 mg PO Q12H 04/04/23 05/22/23 History ergocalciferol (vitamin D2) 1,250 50,000 unit PO WEEKLY 04/04/23 05/22/23 History mcg (50,000 unit) capsule trazodone 50 mg tablet 50 mg PO HS 04/04/23 05/22/23 History carvedilol 6.25 mg tablet (Coreg) 6.25 mg PO Q12HR #90 tabs 04/07/23 05/29/23 Rx clopidogrel 75 mg tablet 75 mg PO QAM #90 tabs 04/07/23 05/29/23 Rx furosemide 20 mg tablet (Lasix) 20 mg PO DAILY #90 tabs 04/07/23 05/22/23 Rx losartan 25 mg tablet 12.5 mg PO DAILY #90 tabs 04/07/23 05/22/23 Rx ondansetron 4 mg disintegrating 4 mg PO Q8H PRN nausea and 04/19/23 05/22/23 Rx tablet vomiting #30 tabs oxycodone 5 mg tablet 5 mg PO Q4H PRN pain #14 tabs 04/19/23 05/22/23 Rx famotidine 20 mg tablet (Pepcid) 20 mg PO BID 05/14/23 05/22/23 History acetaminophen 500 mg tablet 1,000 mg PO TID PRN Pain 05/22/23 05/22/23 History hydrocodone 5 mg-acetaminophen 325 1 tablet PO Q4H PRN pain #10 tabs 05/29/23 Rx mg tablet Patient hx anesthesia problems: post op nausea/vomiting Family hx anesthesia problems: none Results Review: All pre-operative results and documents have been reviewed as part of the pre-operative evaluation. [facility] Past Medical History Medical History Anxiety Basal cell carcinoma (~2009) Resected from the tip of the nose Bilateral cataracts CAD (coronary artery disease) Depression Diverticulosis With history of diverticulitis Essential hypertension Exercise-induced asthma Hepatic steatosis Hyperlipidemia Ischemic cardiomyopathy With an EF as low as 25% in 2013 with most recent EF 2022 of 52% Left bundle branch block Obesity (BMI 30.0-34.9) ZACH (obstructive sleep apnea) Patient reports that her study demonstrated mild obstructive sleep apnea and CPAP was not recommended Peripheral neuropathy Postmenopausal Surgical History Surgical History H/O colonoscopy History of arthroscopy of left knee S/P right coronary artery (RCA) stent placement (08/2013) Family History Family History Mother Family history of cardiac disorder Family history of diabetes mellitus in first degree relative Family history of c
[2023-05-29] MEDS: oxyCODONE HCL (*CRX) 5 MG TAB IR PO (15:45)
== END 2023-05-29 16:28 | disposition home or self-care (01) ==
PROVIDERS: PCP Family Medicine; Visit Provider Surgery
PROC: 0FT44ZZ Resection of Gallbladder, Percutaneous Endoscopic Approach (ICD-10-PCS; CPT 47562; principal; 2023-05-29 12:00)
DX: K80.10 Calculus of gallbladder with chronic cholecystitis without obstruction (principal); L72.0 Epidermal cyst; I25.10 Atherosclerotic heart disease of native coronary artery without angina pectoris; I10 Essential (primary) hypertension; E78.5 Hyperlipidemia, unspecified; G47.33 Obstructive sleep apnea (adult) (pediatric); J45.998 Other asthma; I25.5 Ischemic cardiomyopathy; G62.9 Polyneuropathy, unspecified; F41.9 Anxiety disorder, unspecified; F32.A Depression, unspecified; E66.9 Obesity, unspecified; Z68.30 Body mass index [BMI] 30.0-30.9, adult; Z95.5 Presence of coronary angioplasty implant and graft; Z79.51 Long term (current) use of inhaled steroids; Z79.82 Long term (current) use of aspirin
CPT/HCPCS: 11400; 47563; 74300; 88304; 88305; A9270; J0461; J0690; J1100; J1596; J1885; J2250; J2405; J2704; J3010; J7120

== ENCOUNTER 2023-12-02 11:22 | Emergency (ER) | payer MEDICARE, BC, SELFPAY ==
[2023-12-02] VITALS (10 sets, daily range): BP systolic 108–131; BP diastolic 45–92; PULSE 60–84; RESP 12–23; TEMP 36.4–36.6; O2SAT 93–100
--- NOTE | ~2023-12-02 | CT_ITS ---
EXAMINATION: CT abdomen pelvis w con DATE: 12/02/2023 13:41 INDICATION: Left lower quadrant pain. Diverticulitis. TECHNIQUE: Computed tomography (CT) of the abdomen and pelvis was performed with 100 cc Omnipaque 350 intravenous contrast. The dose-length product was 1049.08 mGy-cm. Automated exposure control and ite rative reconstruction technique were employed. COMPARISON: 04/18/2023 FINDINGS: There is dependent atelectasis. There are breast implants. Heart size normal. There are mul tiple liver cysts. Status post cholecystectomy. The spleen, pancreas, adrenal glands and kidneys are unremarkable. There is thickening of the sigmoid colon with surrounding phlegmonous change. There are mildly dilated small bowel loops with air-fluid levels in the left upper abdomen, likely focal adyna maria luz ileus secondary to adjacent inflammation. Cannot exclude underlying colonic mass. There is free f luid in the pelvis. There is atherosclerosis of the aorta without aneurysm. Small fat-containing umbi lical hernia. No definite abscess identified. Mild lumbar spondylosis. IMPRESSION: 1. Acute sigmoid diverticulitis. Cannot exclude underlying colonic mass. There are secondary adynamic ileus of the adjacent small bowel. Reviewed, dictated and finalized at location B.
[2023-12-02 11:59] LABS: Basophils Percent Auto 0.2 % (0.2-1.2); Eosinophils Percent Auto 0.2 % (0-4.4); Hematocrit 39.3 % (37.0-47.0); Hemoglobin 13.4 g/dL (12.0-15.0); Immature Granulocyte Absolute 0.04 K/mm3 (0.00-0.031); Immature Granulocyte Percent A 0.3 % (0-0.5); Lymphocytes Absolute Auto 0.72 K/mm3 (0.9-3.2); Lymphocytes Percent Auto 5.8 % (18.3-44.2); Mean Corpuscular HGB Conc 34.1 g/dl (32-36); Mean Corpuscular Hemoglobin 31.6 pg (26-34); Mean Corpuscular Volume 92.7 fl (80-100); Mean Platelet Volume 10.2 fl (7.4-10.4); Monocytes Absolute Auto 1.1 K/mm3 (0.1-0.6); Neutrophils Absolute Auto 10.6 K/mm3 (1.3-6.7); Neutrophils Percent Auto 84.5 % (45.5-73.1); Platelet Count Result 213 k/mm3 (150-375); Red Blood Count 4.24 M/mm3 (4.2-5.4); White Blood Count 12.5 K/mm3 (4.5-10.0)
[2023-12-02 12:06] LABS: Alanine Aminotransferase 24 U/L (6-35); Albumin Level 4.4 g/dL (3.5-5.1); Alkaline Phosphatase 85 U/L (38-126); Anion Gap 11 mmol/L (4-12); Aspartate Amino Transferase 27 U/L (14-36); Bilirubin,Total 1.1 mg/dL (0.2-1.3); Blood Urea Nitrogen 10 mg/dL (7-17); Calcium 8.9 mg/dL (8.4-10.2); Carbon Dioxide 25 mmol/L (22-30); Chloride 103 mmol/L (98-107); Estimated CRCL calculation 67 ml/min; Estimated Glomerular Filt Rate > 60; Glucose 136 mg/dL (65-110); Lipase 52 U/L (23-300); Potassium 3.8 mmol/L (3.4-5.0); Sodium 139 mmol/L (137-145)
[2023-12-02 12:14] LABS: Appearance Urine Clear (Clear); Bacteria Urine None Seen /hpf; Bilirubin Urine Negative (Negative); Blood Urine Negative (Negative); Color Urine Yellow (Yellow); Glucose Urine UA Negative (Negative); Ketones Urine Negative (Negative); Leukocyte Esterase Ur Negative LEU/UL (Negative); Need Manual Microscopic Reviewed; Nitrate Urine Negative (Negative); Non Pathogenic Casts 0-2; Protein Urine Trace mg/dL (Negative); Specific Grav Ur 1.018 (1.001-1.035); Squamous Epithelial Cell Urine None Seen /hpf (Few); WBC Urine 0-5 /hpf (0-3); pH Urine 5.5 (5.0-9.0)
[2023-12-02 12:15] LABS: Add Urine Microscopic? YES
[2023-12-02] MEDS: HYDROmorphone HCL INJ (*CRX) 1 MG/ML SYR 0.5 MG IV PUSH ×2 (13:16→15:37)
[2023-12-02] MEDS: ONDANSETRON INJ 4 MG/2 ML VIAL IV PUSH (13:16)
[2023-12-02] MEDS: cefTRIAXone 2 GM/NS 100 ML 2 GM/100 ML BAG IVPB (13:17)
[2023-12-02] MEDS: LACTATED RINGERS 1,000 ML 999 ML IV CONT (13:17)
--- NOTE | 2023-12-02 15:29 | ED.ABDPAIN ---
HPI - Abdominal Pain General Chief Complaint: Abdominal Pain Stated Complaint: llq, suprapubic pain Time Seen by Provider: 12/02/23 12:27 History of Present Illness HPI narrative: This is a 68 year old female with a past medical history significant for known diverticulosis with previous that was absence. Today patient presents to the emergency department 2 days of left lower quadrant tenderness and pain that she states resembles are normal diverticulitis flares. Patient states her last flare-up was sometime ago. Some very mild associated nausea without any vomiting. She is able tolerate p.o. intake. No diarrhea or constipation, no bloody bowel movements or dark tarry stools. No chest pain, shortness breast she was otherwise in her normal state of health. She has no history of renal involvement or any kidney stones. No urinary complaints. Related Data Home Medications Medication Instructions Recorded Confirmed albuterol sulfate 90 mcg/actuation 2 puff inhalation Q6H PRN 04/04/23 06/11/23 aerosol inhaler Shortness Of Breath alprazolam 0.25 mg tablet 0.25 mg PO TID PRN Anxiety 04/04/23 06/11/23 aspirin 81 mg tablet,delayed 81 mg PO DAILY 04/04/23 06/11/23 release docusate sodium 100 mg capsule 100 mg PO Q12H 04/04/23 06/11/23 trazodone 50 mg tablet 50 mg PO HS 04/04/23 06/11/23 acetaminophen 500 mg tablet 1,000 mg PO TID PRN Pain 05/22/23 06/11/23 Allergies Allergy/AdvReac Type Severity Reaction Status Date / Time levofloxacin Allergy Unknown Nausea and Verified 06/11/23 13:39 Vomiting metronidazole Allergy Unknown Nausea and Verified 06/11/23 13:39 Vomiting Review of Systems Review of Systems: CONSTITUTIONAL: Denies fever, chills, or sweats. EYES: Denies visual changes, redness, or discharge. ENT: Denies rhinorrhea, congestion, sore throat, or otalgia. CARDIOVASCULAR: Denies chest pain, palpitations, or edema. RESPIRATORY: Denies cough or dyspnea. GASTROINTESTINAL: Endorses abdominal pain, mild nausea, no, vomiting, or diarrhea. GENITOURINARY: Denies dysuria or hematuria. SKIN: Denies rash or itching. MUSCULOSKELETAL: Denies back pain, joint pain, or myalgia. NEUROLOGIC: Denies headache, numbness, or weakness. PSYCHIATRIC: Denies anxiety or depression. [facility] Past Medical History Medical History Anxiety Basal cell carcinoma (~2009) Resected from the tip of the nose Bilateral cataracts CAD (coronary artery disease) Depression Diverticulosis With history of diverticulitis Essential hypertension Exercise-induced asthma Hepatic steatosis Hyperlipidemia Ischemic cardiomyopathy With an EF as low as 25% in 2013 with most recent EF 2022 of 52% Left bundle branch block Obesity (BMI 30.0-34.9) ZACH (obstructive sleep apnea) Patient reports that her study demonstrated mild obstructive sleep apnea and CPAP was not recommended Peripheral neuropathy Postmenopausal Surgical History Surgical History H/O colonoscopy History of arthroscopy of left knee S/P right coronary artery (RCA) stent placement (08/2013) Family History Family History Mother Family history of cardiac disorder Family history of diabetes mellitus in first degree relative Family history of coronary artery disease Cerebrovascular accident Father Family history of malignant neoplasm of esophagus Family history of lung cancer Sibling Family history of coronary artery disease Family history of diabetes mellitus in first degree relative Social History Social History Social History: She has been since March 2021. Her suffered from early-onset dementia and at 57 years old. She has a small dog at home that weighs about 15 lb. She is independent in her activities of da
--- NOTE | 2023-12-02 16:00 | PC.NURSE ---
patients medications were infusing slow because they were unable to keep arm straight although reminded numerous times. fluids and antibiotics are now infused
== END 2023-12-02 16:04 | disposition home or self-care (01) ==
PROVIDERS: Emergency Medicine; Emergency Provider Student in an Organized Health Care Education/Training Program; PCP Family Medicine
DX: K57.32 Diverticulitis of large intestine without perforation or abscess without bleeding (principal); I25.10 Atherosclerotic heart disease of native coronary artery without angina pectoris; I10 Essential (primary) hypertension; I25.5 Ischemic cardiomyopathy; J45.990 Exercise induced bronchospasm; E66.9 Obesity, unspecified; Z68.32 Body mass index [BMI] 32.0-32.9, adult; G47.33 Obstructive sleep apnea (adult) (pediatric); G62.9 Polyneuropathy, unspecified; F41.9 Anxiety disorder, unspecified; F32.A Depression, unspecified; Z95.5 Presence of coronary angioplasty implant and graft; Z85.828 Personal history of other malignant neoplasm of skin; Z79.82 Long term (current) use of aspirin; Z79.899 Other long term (current) drug therapy
CPT/HCPCS: 36415; 74177; 80053; 81001; 83690; 85025; 96365; 96366; 96375; 96376; 99284; J0696; J1170; J2405; J7120; Q9967

== ENCOUNTER 2024-12-26 12:09 | Outpatient (CLI) | payer MEDICARE, BC, SELFPAY ==
--- NOTE | ~2024-12-26 | XR_ITS ---
EXAM/ PROCEDURE: XR humerus LT - 12/26/2024 12:25 CDT HISTORY: 69 years old Female with pain in lt arm X 3 MONTHS AFTER FALL, LROM COMPARISON: None available TECHNIQUE: Three view(s) FINDINGS/ IMPRESSION: There are no fractures or dislocations.Joint space narrowing, subchondral sclerosis, subchondral cyst formation and osteophyte formation, compatible with mild osteoarthritis. Reviewed, dictated and finalized at location A.
--- OUTSIDE RECORDS SUMMARY | 2024-12-26 13:06 | XMS_ITS | Continuity of Care Document ---
Author Organization [facility] Address [id number] [place] [address] [place] [address] Phone Care Team Providers Care Legislative Advocate Name Role Phone [facility] Unavailable Unavail able Madelyn Bolanos Unavailable Unavailable Advance Directives Directive Yes / No Effective Date File Name No Information Encounters Encounter Description Practice Location Reason(s) For Visit Diagnoses Date Provider Providers Copied on Encounter [facility], [id number] [place] [address] [address], [place], [place], [id number], [place] tel:[phone] [facility] No Information [phone] [facility] [facility], [address], [place], [place], [id number] , [place]. [phone] Consulting Provider: Madelyn Bolanos, [address] [place] [address], [place], [address]. tel:[phone] Family History Family Member Type Diagnosis Age At Onset No Information Payers Payer name Insurance type Covered constitution party ID Authoriza tion(s) No Information Social [...]
--- OUTSIDE RECORDS SUMMARY | 2024-12-26 13:06 | XMS_ITS | Clinical Summary ---
Author Organization [facility] Building [address] Address [address] [place] [address] Care Team Providers Care Recreation Establishment Manager Name Role Phone Cuauhtemoc Jasso MD Primary Care Provider [phone] Allergies Active Allergy Reactions Criticality Noted Date Comments Levofloxacin Metronidazole Medications ALPRAZolam (XANAX) 0.25 mg tablet take 1 tablet by oral route 2 times every day as neede 0 0 4 Active folic acid-vit B6-vit B12 (FOLPLEX 2.2) 2.2-25-0.5 mg tablet 0 0 4 Active potassium chloride ER (potassium chloride ER) 10 mEq CR tablet take 1 Capsule by ORAL route every day with food 0 0 6 Active atorvastatin (LIPITOR) 40 mg tablet Take 1 tablet (40 mg total) by mouth daily Active citalopram (CeleXA) 40 mg tablet Take 1 tablet (40 mg total) by mouth every morning Active traZODone (DESYREL) 50 mg tablet Take 1 tablet (50 mg total) by mouth nightly Active albuterol HFA (PROVENTIL HFA,VENTOLIN HFA,PROAIR HFA) 90 mcg/actuation inhaler Inhale 2 puffs every 6 (six) hours as needed for wheezing Active polyethylene glycol (MIRALAX) 17 gram/dose bulk powder Take 17 g by mouth once 3 Active docusate sodium (COLACE) 100 mg capsule Take 1 capsule (100 mg total) by mouth 2 (two) times a day as needed 3 Active clopidogreL (PLAVIX) 75 mg tablet Take 1 tablet (75 mg total) by mouth every morning 3 Active acetaminophen (TYLENOL) 500 mg tablet as needed 3 Active carvediloL (COREG) 6.25 mg tablet Take 1 tablet (6.25 mg total) by mouth every 12 (twelve) hours 3 Active losartan (COZAAR) 25 mg tablet Take 0.5 tablets (12.5 mg total) by mouth daily 3 Active furosemide (LASIX) 20 mg tablet Take 1 tablet (20 mg total) by mouth daily 3 Active ergocalciferol (VITAMIN D) 50,000 unit capsule Take 1 capsule (50,000 Units total) by mouth once a week [address] (PROTONIX) 40 mg EC tablet Take 1 tablet (40 mg total) by mouth every morning 5 Active Wegovy 0.25 mg/0.5 mL auto-injector INJECT 0.25MG SUBCTANEOUSLY ONCE WEEKLY DIRECTED 5 Active Active Problems Problem Noted Date Diagnosed Date Well woman exam 04/27/2023 Overview (04/27/2023): Lab: Pap:age 52. Labs with pcp Coni:2022 Colonoscopy:2021- to repeat yearly BMD:osteopenia. Follows with pcp Assessment & Plan (04/27/2023 12:02 PM AUTO BODY CUSTOMIZER): Pap done. RTO 12m. I will send the results to the portal. If she has not heard in a week, to call the office. Will get her 3 normals since she has not had a pap since her 50s and then stop Vulvar lesion 04/27/2023 Assessment & Plan (04/27/2023 12:01 PM AUTO BODY CUSTOMIZER): Normal appearing today Dilated cardiomyopathy 03/16/2023 Essential hypertension 03/16/2023 LBBB (left bundle branch block) 03/16/2023 Coronary arteriosclerosis in [place] artery 02/13 Overview (08/14/2016): Coronary arteriosclerosis in [place] artery Osteoarthritis of knee 03/14/2010 Surgical History Surgery Date Site/Laterality Comments KNEE SURGERY Left OTHER SURGICAL HISTORY BREAST IMPLALNTS TONSILLECTOMY age 7 Medical History Medical History Date Comments Coronary atherosclerosis Anxiety and depression Hypertension Insomnia CHF (congestive heart failure) (HCC) Gallbladder stone with nonacute cholecystitis Family History Medical History Relation Name Comments COPD Brother Diabetes type II Brother Hypertension Brother Other Brother Cardiac arrhyth mias; Esophageal cancer Father Lung cancer Father Heart attack Maternal Grandmother Myocard ial infarction; Cause of : Myocardial infarction Diabetes type II Mother Heart disease Mother Stroke Mother Cardiac arrhyth mias; pacemaker Mother Cancer Neg Hx no colon, breas t or medical accounting 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 No 04/27/2023 Within the last year, have y ou been humiliated or emotionally abused in other ways by your partner or ex-partner? No Within the last year, have y ou been kicked, hit, slapped, or otherwise physically hurt by your partner or ex-partner? No 04/27/2023 Within the last year, have y ou been raped or forced to have any kind of sexual activity by your partner or ex-partner? No 04/27/2023 AUDIT-C Answer Date Recorded Q1: How often do you have a drink containing alc ohol? Monthly or less 04/27/2023 Q2: How many drinks containi ng alcohol do you have on a typical day when you are drinking? 1 or 2 04/27/2023 Q3: How often do you have si x or more drinks on one occasion? Never 04/27/2023 Comments No Sex and Gender Information Value Date Recorded Sex Assigned at Not on file Legal Sex Female 8:50 AM AUTO BODY CUSTOMIZER Gender Identity Not on file Sexual Orientation Not on file Obstetrics History Para Term AB IAB SAB Ectopic Multiple Livin g Live Births 4 2 2 2 2 2 2 Date Outcome GA Total Labor Labor/2nd/3rd Weight Sex Type Anes PTL Marti A1 A5 Name Clin SAB SAB 1975 Term F Vaginal None Living Complications:None 1977 Term 4.082 kg (9 lb) M Vaginal None Living Complications:None Last Filed Vital Signs Vital Sign Reading Time Taken Comments Blood Pressure 128/62 09/19/2024 11:49 AM CDT Pulse 64 09/19/2024 11:49 AM CDT Temperature - - Respiratory Rate - - Oxygen Saturation 98% 09/19/2024 11:49 AM CDT Inhaled Oxygen Concentration - - Weight 87.6 kg (193 lb 3.2 oz) 09/19/2024 11:49 AM CDT Height 160 cm (5' 3) 09/19/2024 11:49 AM CDT Body Mass Index 34.22 09/19/2024 11:49 AM CDT Plan of Treatment Health Maintenance Due Date Last Done Comments Breast Cancer Screening-Mammogram 1954 Colon Cancer Screening-Colonoscopy 1954 Depression Screening 1954 Fall Risk Assessment 1954 Hepatitis C Screening 1954 Osteoporosis Screening-Bone Density Scan 1954 DTaP/Tdap/Td Vaccine (1 - Tdap) 1965 Hepatitis B Screening 1972 Pneumococcal vaccine 65+ (1 of 1 - PCV) 2004 Zoster Vaccine (1 of 2) 2004 Well Visit 65+ 09/01/2019 Covid-19 Vaccine (6 - 2023-2 5 season) 2024 03/31/2022, 11/22/2021, 04/19/2021, Additional history exists Influenza Vaccine (#1) 2025 06/09/2019, 2017 Insurance MEDICARE [facility] [employer] Care Teams Recreation Establishment Manager Relationship Specialty Start Date End Date Cuauhtemoc Jasso MD [address] [place] [address] PCP - General Family Medicine 03/16/23
== END 2024-12-26 12:10 | disposition home or self-care (01) ==
PROVIDERS: PCP Family Medicine; Visit Provider Family Medicine
DX: M79.602 Pain in left arm (principal)
CPT/HCPCS: 73060

== ENCOUNTER 2025-01-03 16:22 | Outpatient (CLI) | payer MEDICARE, BC, SELFPAY ==
--- OUTSIDE RECORDS SUMMARY | 2002-08-10 19:00 | XMS_ITS | Continuity of Care Document ---
Author Organization [facility] [place] [id number] [place] [address] [place] [address] Phone Care Team Providers Care Tax Assistant Name Role Phone [facility] Unavailable Unavail able Madelyn Bolanos Unavailable Unavailable Advance Directives Directive Yes / No Effective Date File Name No Information Encounters Encounter Description Practice Location Reason(s) For Visit Diagnoses Date Provider Providers Copied on Encounter [facility], [id number] [place] [address] [address], [place], [place], [id number], [place] tel:[phone] [facility] No Information [phone] [facility] [address] [facility], [address], [place], [place], [id number] , [place]. [phone] Consulting Provider: Madelyn Bolanos, [address] [place] [address], [place], [address]. tel:[phone] Family History Family Member Type Diagnosis Age At Onset No Information Payers Payer name Insurance type Covered alliance party ID Authoriza tion(s) No Information Social History Type Description Quantity Date Captured Comments Sex Female Smoking Status No Information Chief Complaint And Reason For Visit No Information Reason For Referral Reason For Referral No Information History Of Present Illness Encounter Date Complaint History Of Prese nt Illness No Information Functional Status Date Functional Assessmen t No Information Instructions Date Instruction Additional Infor mation No Information Assessments Type Assessment Date No Information Patient Care Teams Name Effective Dates (start - stop) Status Members No Information
--- NOTE | ~2025-01-03 | XR_ITS ---
XR shoulder LT min 2V 01/03/2025 16:38 Indication: Left shoulder pain Procedure: 2 views left shoulder Comparison: 12/26/2024 Findings: There is mild polyarticular osteoarthritis of the shoulder. No fracture, subluxation or dislocation. No soft tissue abnormality. Impression: 1: Mild polyarticular osteoarthritis of the left shoulder. Reviewed, dictated and finalized at location O. Impression: 1: Mild polyarticular osteoarthritis of the left shoulder.
--- OUTSIDE RECORDS SUMMARY | 2025-01-03 16:26 | XMS_ITS | Clinical Summary ---
Author Organization [facility] Medical Office Building [address] Address [address] [place] [address] Care Team Providers Care Director Loan Name Role Phone Cuauhtemoc Jasso MD Primary Care Provider [phone] Allergies Active Allergy Reactions Criticality Noted Date [...] pcp Assessment & Plan (04/27/2023 12:02 PM QUARTER SUPERVISOR): Pap done. RTO 12m. I will send the results to the portal. If she has not heard in a week, to call the office. Will get her 3 normals since she has not had a pap since her 50s and then stop Vulvar lesion 04/27/2023 Assessment & Plan (04/27/2023 12:01 PM QUARTER SUPERVISOR): Normal appearing today Dilated cardiomyopathy 03/16/2023 Essential hypertension 03/16/2023 LBBB (left bundle branch block) 03/16/2023 Coronary arteriosclerosis in [place] artery 02/13 Overview (08/14/2016): Coronary arteriosclerosis in [place] artery Osteoarthritis of knee 03/14/2010 Surgical History [...] Neg Hx no colon, breas t or fur blower cancer cmt 04/26/23 Relation Name Status Comments [...] on file Legal Sex Female 8:50 AM QUARTER SUPERVISOR Gender Identity Not on file Sexual Orientation [...] Vaccine (#1) 2025 06/09/2019, 2017 Insurance MEDICARE [facility] [employer] Care Teams Director Loan Relationship Specialty Start Date End Date Cuauhtemoc Jasso MD [address] [place] [place] [address] PCP - General Family Medicine 03/16/23
== END 2025-01-03 16:23 | disposition home or self-care (01) ==
PROVIDERS: PCP Family Medicine; Visit Provider Family Medicine
DX: M19.012 Primary osteoarthritis, left shoulder (principal)
CPT/HCPCS: 73030

== ENCOUNTER 2025-03-30 14:26 | Outpatient (CLI) | payer MEDICARE, BC, SELFPAY ==
--- NOTE | ~2025-03-30 | XR_ITS ---
XR lumbar spine min 4V Indication: chronic low back pain w sciatica Comparison: None Findings: Mild levoconvex scoliosis. No fracture or subluxation. Moderate loss of disc height throughout. Soft tissues unremarkable Impression: No acute abnormality. Reviewed, dictated and finalized at location [facility] [employer] Impression: No acute abnormality.
--- OUTSIDE RECORDS SUMMARY | 2025-03-30 17:33 | XMS_ITS | Data Portability ---
Author Organization [facility] [employer], Main Office Address [address] [place] [address] Care Team Providers Care Metal Mine Inspector Name Role Phone CUAUHTEMOC JASSO Primary Care Provider CUAUHTEMOC JASSO Referring Provider [phone] Assessment Encounter Date Assessment Date Assessment LastModified by Organization Details LastModified Time 12/06/2024 12/06/2024 69 yo F with - S/P FALL - LT ARM PAIN - DYSPNEA ON EXERTION, improved - HTN - CAD (S/p 1 stent) - CHF - H/O NSTEMI (04/03/23) - CHRONIC CONSTIPATION - DEPRESSION - ANXEITY - CHRONIC INSOMNIA - FATIGUE - FIBROMYALGIA - OSTEOPENIA - ALLERGIC RHINITIS - EXERCISE-INDUCED ASTHMA - VIT D DEFICIENCY - OBESITY I - H/O CHOLECYSTECTOMY Annual labs: 03/23/24. US Abdo: 02/17/23. X-ray Abdo: 02/17/23. Annual labs: 11/20/22. X-ray foot: 08/11/22. X-ray shoulder: 03/14/22. Annual labs, OLEG: 01/29/21. Wt: 199(12/02/22) - 194(01/26/23) - 194(02/26/23) [Stop] D/w pt in detail about her conditions, recent labs & imagines and further plan of care. Will do x-rays. KARTHIKEYAN explained. Answered all questions and concerns for pt. All meds verified with pt. Meds as directed. Good liquid and fiber intake explained. Diet and exercise explained in detail. BP diary education given and call us if any concerns. Fall risk precautions explained. Cont f/u with Surg as per schedule. Cont f/u with Cardio at [facility] as per schedule. Offered to refer to Counsellor/Psych; but pt declined. Offered to refer to PT; but pt declined. Offered to refer for sleep study; but pt declined. Offered to refer to Pulmo; but pt declined. Educated pt about alarming symptoms to monitor at home and call us back Or get checked in ED. HM: WWE - Long time ago. Pt declined. Mammo - 11/28/22, normal. Ordered again. Colonoscopy - Never. Pt declined. Cologuard 07/24/21 - neg. DEXA - 11/28/22, osteopenia ++. Flu - 03/08/24. Tdap - 02/04/21. Pneumo - 11/20/22, 03/23/24. Shingrix, RSV - At pharmacy/HD. F/u in 2-3 weeks. Annual labs in 04/04. [email or web address] Not available 12/06/2024 15:07:08 01/02/2025 01/02/2025 69 yo F with - S/P FALL - LT ARM & SHOULDER PAIN - DYSPNEA ON EXERTION, improved - HTN - CAD (S/p 1 stent) - CHF - H/O NSTEMI (04/03/23) - CHRONIC CONSTIPATION - DEPRESSION - ANXEITY - CHRONIC INSOMNIA - FATIGUE - FIBROMYALGIA - OSTEOPENIA - ALLERGIC RHINITIS - EXERCISE-INDUCED ASTHMA - VIT D DEFICIENCY - OBESITY I - H/O CHOLECYSTECTOMY X-ray Lt arm: 12/26/24. Annual labs: 03/23/24. US Abdo: 02/17/23. X-ray Abdo: 02/17/23. Annual labs: 11/20/22. X-ray foot: 08/11/22. X-ray shoulder: 03/14/22. Annual labs, OLEG: 01/29/21. Wt: 199(12/02/22) - 194(01/26/23) - 194(02/26/23) [Stop] D/w pt in detail about her conditions, recent labs & imagines and further plan of care. Staff to get result of x-ray Lt shoulder. Will refer pt to Ortho. Pt wants to wait for PT. Answered all questions and concerns for pt. All meds verified with pt. Meds as directed. Good liquid and fiber intake explained. Diet and exercise explained in detail. BP diary education given and call us if any concerns. Fall risk precautions explained. Cont f/u with Surg as per schedule. Cont f/u with Cardio at [facility] as per schedule. Offered to refer to Counsellor/Psych; but pt declined. Offered to refer to PT; but pt declined. Offered to refer for sleep study; but pt declined. Offered to refer to Pulmo; but pt declined. Educated pt about alarming symptoms to monitor at home and call us back Or get checked in ED. HM: WWE - Long time ago. Pt declined. Mammo - 11/28/22, normal. Ordered again. Colonoscopy - Never. Pt declined. Cologuard 07/24/21 - neg. Ordered. DEXA - 11/28/22, osteopenia ++. Flu - 03/08/24. Tdap - 02/04/21. Pneumo - 11/20/22, 03/23/24. Shingrix, RSV - At pharmacy/HD. F/u in 3 months. Annual labs in 04/04. [email or web address] Not available 01/02/2025 17:20:34 01/16/2025 01/16/2025 69-year-old femgwen mccrary presents for evaluation of her left shoulder. He reports having a fall a few months ago when she was mowing her lawn and slipped, landing on the curve with that shoulder. She has had pain and difficulty with lifting her arm since then. She she has not had any treatments. She is right-hand dominant. She is retired. She has a history of a stent for cardiomyopathy and is on clopidogrel. She denies having any issue with the shoulder prior to the injury. Review of systems sheet questionnaire Physical exam: She has tenderness over the AC joint, anterior shoulder, and lateral shoulder. She has active elevation about 90 before having significant pain, she has passive elevation to 140. Positive drop arm. 5- out of 5 strength with external rotation, 4/5 in elevation. Positive Jaden, positive Neer and Szymanski, positive Josephine's X-rays reviewed, demonstrating AC hypertrophy, subacromial spur, mild glenohumeral arthritis with a very small inferior osteophyte She likely had a acute traumatic rotator cuff injury. We will begin with a course of conservative management as she has not had any treatments yet. She can not take oral NSAIDs so we will have her use topical Voltaren and [id number] Tylenol. We will also send to physical therapy to work on her shoulder range of motion strengthening. We will see her back in 6 weeks for recheck. If persistent symptoms at that time we will consider cortisone injection and get an MRI. She is in agreement with the plan. Not available 01/16/2025 17:17:48 03/27/2025 03/27/2025 69-year-old moises mccrary presents for follow-up of her left shoulder. She reports feeling better. She has been doing physical therapy which has helped. She currently rates her pain as 2/10. Minimal tenderness palpation, range of motion 130/30/lower lumbar. She has good rotator cuff strength. She has had improvement with physical therapy. We will renew that. We discussed a cortisone injection if no better, but she wants to hold off. We will see her back in 6 weeks, or sooner as needed. Not available 03/29/2025 14:50:21 03/30/2025 03/30/2025 69 yo F with - WELL ADULT VISIT - HTN - CAD (S/p 1 stent) - CHF - H/O NSTEMI (04/03/23) - CHRONIC CONSTIPATION - DEPRESSION - ANXEITY - CHRONIC INSOMNIA - FATIGUE - FIBROMYALGIA - LT SHOULDER PAIN, chronic - OSTEOPENIA - CHRONIC CONSTIPATION - ALLERGIC RHINITIS - EXERCISE-INDUCED ASTHMA - VIT D DEFICIENCY - OBESITY I - H/O CHOLECYSTECTOMY X-ray Lt arm: 12/26/24. Annual labs: 03/23/24. US Abdo: 02/17/23. X-ray Abdo: 02/17/23. Annual labs: 11/20/22. X-ray foot: 08/11/22. X-ray shoulder: 03/14/22. Annual labs, OLEG: 01/29/21. Wt: 199(12/02/22) - 194(01/26/23) - 194(02/26/23) [Stop] D/w pt in detail about her conditions, recent labs & imagines and further plan of care. Will do routine labs, x-ray. Answered all questions for pt. All meds verified with pt. Meds as directed. Good liquid and fiber intake explained. Diet and exercise explained in detail. BP diary education given and call us if any concerns. Fall risk precautions explained. Cont f/u with Ortho as per schedule. Cont f/u with Surg as per schedule. Cont f/u with Cardio at [facility] as per schedule. Offered to refer to Counsellor/Psych; but pt declined. Offered to refer to PT; but pt declined. Offered to refer for sleep study; but pt declined. Offered to refer to Pulmo; but pt declined. Educated pt about alarming symptoms to monitor at home and call us back Or get checked in ED. Pt did not tolerate Phentermine, Wegovy in the past. HM: WWE - Long time ago. Pt declined. Mammo - 11/28/22, normal. Ordered again. Colonoscopy - Never, Pt declined. Cologuard 01/31/25 - neg. DEXA - 11/28/22, osteopenia ++. Ordered. Flu - 03/30/25. Tdap - 02/04/21. Pneumo - 11/20/22, 03/23/24. Shingrix, RSV - At pharmacy/HD. F/u in 3 weeks. Annual labs in 04/05. [email or web address] Not available 03/30/2025 10:14:09 Plan of Treatment Reminders Order Date Submit Date Provider Last Modified By Organization Details Last Modified Time Details Appointments Physical/ Annual Wellness 30 2024 09:00A Kelsie Jasso MD Not available Not available Not available Follow Up 15 2024 11:00A Kelsie Jasso MD Not available Not available Not available Lab vitamin B12 + folate, serum or blood 2024 025 [email or web address] [facility] (Lab), [address] [place], [address], 03/30/2025 09:59:54 urinalysi s complete, reflex culture 2024 025 [email or web address] [facility] (Lab), [address] [place], [address], 03/30/2025 09:59:54 glycohemo globin, total, blood [email or web address] (Lab), [address] [place], [address], 03/30/2025 09:59:54 CMP, serum or plasma [email or web address] (Lab), [address] [place], [address], 03/30/2025 09:59:54 CBC w/ auto diff [email or web address] (Lab), [address] [place], [address], 03/30/2025 09:59:54 lipid panel, serum [address] (Lab), [address] [place], [address], 03/30/2025 09:59:54 TSH, serum or plasma [email or web address] (Lab), [address] [place], [address], 03/30/2025 09:59:54 vitamin D, 25-hydrox y, total, serum [address] (Lab), [address] [place], [address], 03/30/2025 09:59:54 magnesium , serum or plasma [email or web address] (Lab), [address] [place], [address], 03/30/2025 09:59:54 noninvasi ve colorecta l cancer DNA + occult blood screening , QL, stool 2024 025 [email or web address] [facility], [address], [address], [place], [address], 01/11/2025 14:37:12 Referral physical therapist referral - continuat ion of therapy for L shoulder 2024 [email or web address] [facility] [place], [address] [facility] [facility] [address], [place], [address], 03/30/2025 09:55:51 physical therapist referral - Please contact pt to schedule for L shoulder 2024 [facility], [address], [place], [address], 01/30/2025 18:30:49 orthopedi c surgeon referral - Please call patient to schedule an appointme nt. Thank you. 2024 [facility], [address] [facility] [address], [place], [address], 01/16/2025 17:19:18 ophthalmo logist referral - Routine eye exam. Please call patient to schedule an appointme nt. Thank you. 2024 [email or web address] [facility], [address] [place], [address], 03/14/2025 08:38:41 Procedures None recorded. Surgeries None recorded. Imaging XR, lumbosacr al spine, 4 or more view 2024 025 [facility], [facility] [address], [address], 03/30/2025 16:01:46 MAMMO, screening , bilateral [address], [address] [place] [address], [address], 03/30/2025 10:15:47 DEXA [address], [facility] [address], [address], 03/30/2025 10:15:47 MAMMO, screening , bilateral 2024 025 [email or web address] [facility], [facility], [place], [address], 12/22/2024 16:28:17 XR, humerus, 2 or more view 2024 025 [email or web address] [facility], [facility], [place], [address], 12/26/2024 16:48:07 XR, shoulder, 2 or more view 2024 025 [facility], [address] [place] [address] [address], [place], [address], 12/13/2024 10:57:45 Medication Orders Folplex 2.2 mg-25 mg-0.5 mg tablet 2024 [facility] #08997, [address] [place], [place], [id number], 03/30/2025 09:58:18 Contrave 8 mg-90 mg tablet,ex tended release 2024 025 [facility], [address], [place], [place], [id number], 03/30/2025 16:13:06 citalopra m 40 mg tablet 2024 025 [facility] #02748, [address] [place], [place], [id number], 03/30/2025 09:58:26 atorvasta tin 40 mg tablet 2024 025 [facility] #01243, [address] [place], [place], [id number], 03/30/2025 09:58:26 trazodone 50 mg tablet 2024 025 [facility] #68413, [address], [place], [place], [id number], 03/30/2025 09:58:26 docusate sodium 100 mg capsule 2024 [facility] #30949, [address], [place], [place], [id number], 03/30/2025 09:58:25 polyethyl jeffery glycol 3350 17 gram/dose oral powder 2024 [facility] #93209, [address], [place], [place], [id number], 03/30/2025 09:58:19 ergocalci ferol (vitamin D2) 1,250 mcg (50,000 unit) capsule 2024 [facility] #84089, [address], [place], [place], [id number], 03/30/2025 09:58:25 pantopraz ole 40 mg tablet,de layed release 2024 [facility] #47592, [address], [place], [place], [id number], 03/30/2025 09:58:26 Folplex 2.2 mg-25 mg-0.5 mg tablet 2024 [facility] #18017, [address], [place], [place], [id number], 01/02/2025 16:45:18 atorvasta tin 40 mg tablet 2024 [facility] #41172, [address], [place], [place], [id number], 01/02/2025 16:45:22 trazodone 50 mg tablet 2024 [email or web address] [facility] #55520, [address], [place], [place], [id number], 01/02/2025 16:45:49 docusate sodium 100 mg capsule 2024 [facility] #98442, [address], [place], [place], [id number], 01/02/2025 16:45:20 polyethyl jeffery glycol 3350 17 gram/dose oral powder 2024 [email or web address] 1 [facility] #07859, [address], [place], [place], [id number], 01/16/2025 15:12:43 ergocalci ferol (vitamin D2) 1,250 mcg (50,000 unit) capsule 2024 [facility] #40866, [address], [place], [place], [id number], 01/02/2025 16:45:21 pantopraz ole 40 mg tablet,de layed release 2024 [facility] #88406, [address], [place], [place], [id number], 01/02/2025 16:45:19 citalopra m 40 mg tablet 2024 [facility] #62091, [address], [place], [place], [id number], 01/02/2025 16:45:19 Folplex 2.2 mg-25 mg-0.5 mg tablet 2024 [facility] #61692, [address], [place], [place], [id number], 12/06/2024 14:37:31 citalopra m 40 mg tablet 2024 [facility] #58388, [address], [place], [place], [id number], 12/06/2024 14:37:35 benzonata te 200 mg capsule 2024 [facility] #59520, [address], [place], [place], [id number], 12/23/2024 05:02:14 tramadol 50 mg tablet 2024 [facility] #46040, [address], [place], [place], [id number], 12/20/2024 05:02:15 atorvasta tin 40 mg tablet 2024 [facility] #17016, [address], [place], [place], [id number], 12/06/2024 14:37:33 trazodone 50 mg tablet 2024 025 [facility] #65308, [address], [facility] [place], [id number], 12/06/2024 14:37:32 docusate sodium 100 mg capsule 2024 025 [facility] #75137, [address], [place], [place], [id number], 12/06/2024 14:37:34 polyethyl jeffery glycol 3350 17 gram/dose oral powder [email or web address] [place] [address] Store #61787, [address], [place], [place], [id number], 01/16/2025 15:12:43 ergocalci ferol (vitamin D2) 1,250 mcg (50,000 unit) capsule 2024 [facility] #04640, [address], [place], [place], [id number], 12/06/2024 14:37:32 Medrol (Arturo) 4 mg tablets in a dose pack 2024 [facility] #88260, [address], [place], [place], [id number], 12/19/2024 05:02:18 pantopraz ole 40 mg tablet,de layed release 2024 [facility] #51873, [address], [place], [place], [id number], 12/06/2024 14:37:36 Patient TargetsNo targets recorded. Patient Instructions Encounter Date Encounter Id Patient Instructions Last Modified By Organization Details Last Modified Time 12/06/2024 [id number] Starting a Weight-Loss Plan: Care Instructions Not available 12/06/2024 14:37:23 01/02/2025 [id number] Starting a Weight-Loss Plan: Care Instructions Not available 01/02/2025 16:45:10 03/30/2025 [id number] Starting a Weight-Loss Plan: Care Instructions Not available 03/30/2025 09:58:12 Reason for Referral Co Op Referral for Ophthalmic examination and evaluation Routine eye exam. Please call patient to schedule an appointment. Thank you. Referring Physician: [facility], Encounter Date: 12/06/2024 Orthopedic Surgeon Referral for Chronic pain of left upper limb Please call patient to schedule an appointment. Thank you. Referring Physician: [facility]htemoc [facility], Encounter Date: 01/02/2025 Physical Therapist Referral for Pain of left shoulder joint L shoulder Please contact pt to schedule for L shoulder Referring Physician: Gabriel Lowe, Orthopedic Surgery, Encounter Date: 01/16/2025 Physical Therapist Referral for Pain of left shoulder region L shoulder continuation of therapy for L shoulder Referring Physician: Gabriel Lowe, Orthopedic Surgery, Encounter Date: 03/27/2025 Results Created Date Observation Date Name Description Value Unit Range Abnormal Flag Note LastModifiedBy Organization Detail LastModifiedTime 02/01/2001/31/2025 COLOG UARD cologuard result reportable NEGATI VE negati ve normal The Colog uard Plus (TM) test was perfo rmed on this speci men. NEGAT LUCIANO TEST RESUL T. A negat luciano (norm al) Colog uard Plus resul t means the patie nt has a less- than- avera ge chanc e of havin g color ectal cance r (CRC) or advan clemente preca ncer (poly ps or lesio ns that could becom e cance r). Negat luciano is the cruz l value (refe rence range ) for this assay . Guide lines recom mend scredidi devi again 3 years after a negat luciano Colog uard Plus resul t. David nued scree shandra incre ases the chanc e of findi ng CRC early or preve nting it entir fatuma. A clini jillian valid ation study showe d the Colog uard Plus test is effec tive at rulin g out CRC. Out of every 10,00 0 patie nts testi ng negat luciano, appro ximat fatuma 2 will be false ly reass ured that they do not have CRC, and out of every 100 patie nts testi ng negat luciano, appro ximat fatuma 7 patie nts will be false ly reass ured they do not have advan clemente preca ncer. TEST DESCR IPTIO N: The Colog uard Plus test is a multi -targ et stool DNA (mt-s DNA) test that fernando zes DNA and hemog lobin bioma rkers in stool . It uses a propr ietar y algor ithm to quali tativ fatuma detec t CRC and advan clemente preca ncer. It is FDA-a pprov ed and indic ated for use in adult s 45 years or older at avera ge risk for CRC. A posit luciano (abno rmal) resul t shoul d be follo wed by a colon oscop y. Patie nts with a negat luciano (norm al) resul t lucho linda scree n again in 3 years . False posit luciano and false negat luciano resul ts may occur . The USPST F recom mends the Colog uard test as a CRC scree shandra optio n. Their model ing estim ates that scree shandra with the test every 3 years from ages 45-85 could preve nt up to 73% of CRC and avoid up to 85% of CRC s. A 1-pat ient clini jillian trial found the Colog uard Plus test effec tivel y detec ts CRC and preca ncer. The study found the test was 95% sensi tive for CRC, 43% sensi tive for advan clemente preca ncer, and had a 91% speci ficit y (Colstrip guard Plus Clini moris Broch ure. Exact Scien samara Corpo ratio n. [facility] on, [place].). Visit www.[employer] [facility] [employer] /abou t/acc uracy -sens itivi ty-sp [facility] for more test infor matio n, refer ences , warni ngs, and preca ution s. Not Available [facility] [address], [place], [address], 02/06/2025 16:31:43 12/27/19 25 12/26/2024 XR, humer us, 2 or more view No observ ation record ed. [address], [address], 01/02/2025 16:41:36 01/06/20 25 01/03/2025 XR, shoul nav, 2 or more view No observ ation record ed. [address], [address], 03/30/2025 09:55:51 03/30/20 25 03/30/2025 XR, lumbo sacra l spine , 4 or more view No observ ation record ed. [address] [place], [address], 03/30/2025 16:06:41 03/30/20 25 03/30/2025 XR, lumbo sacra l spine , 4 or more view No observ ation record ed. [facility] [address] [facility] [address], [place], [address], 03/30/2025 16:57:23 Result Notes None recorded. Problems Name Problem SNOMED Code Status Onset Date Resolution Date Notes Provider Name and Address Organization Details Recorded Time Impacted cerumen of bilateral ears 9959113231597 108 Active 2020 Not Available [facility] 3 23:37:53 Anxiety disorder 188871362 Active 2020 Not Available [facility] 3 23:37:53 Depressive disorder 27413649 Active 2020 Not Available [facility] 3 23:37:53 Hypertensi ve disorder 87983923 Active 2020 Not Available [facility] 3 23:37:53 Obesity 000628834 Active 2020 Not Available [facility] 3 23:37:53 Congestive heart failure 41388684 Active 2020 Not Available [facility] 3 23:37:53 Coronary atheroscle rosis 039143871 Active 2020 Not Available [facility] 3 23:37:54 Fatigue 62830132 Active 2020 Not Available [facility] 3 23:37:54 Fibromyalg ia 618181085 Active 2020 Not Available [facility] 3 23:37:53 Hyperlipid emia 59194418 Active 2020 Not Available [facility] 3 23:37:54 Folliculit is 34597264 Active 2021 Not Available [facility] 3 23:37:53 Screening for malignant neoplasm of colon Active 2021 Not Available [facility] 3 23:37:53 Active immunizati on Active 2021 Not Available [facility] 3 23:37:53 Seasonal allergic rhinitis 851097654 Active 2021 Not Available [facility] 3 23:37:53 Arthritis 0185063 Active 2021 Not Available [facility] 3 23:37:53 Heart disease 80786467 Active 2021 Not Available [facility] 3 23:37:54 Closed fracture of fifth metatarsal bone 20411709 Active 2021 Not Available [facility] 3 23:37:54 Acquired right hallux rigidus 4118711361770 00 Active 2022 Aashish Chiang DPM [address], [address], [place], [address] , [facility] 3 17:52:59 Chronic insomnia 996372915 Active 2022 Cuauhtemoc Jasso MD [address], [address] , [facility] 3 17:20:06 Chronic hypokalemi a 20376486 Active 2022 Cuauhtemoc Jasso MD [address], [address] , [facility] 3 17:30:10 Impacted cerumen in right ear 4283738034058 103 Active 2022 Cuauhtemoc Jasso MD [address], [place], [address] , [facility] 3 10:15:07 Osteopenia 062035117 Active 2022 Cuauhtemoc Jasso MD [address], [place], [address] , [employer] 3 16:29:04 Vitamin D deficiency 75503055 Active 2022 Cuauhtemoc Jasso MD [address], [place], [address] , [facility] 3 16:31:26 Diverticul itis 950946647 Active 2022 Cuauhtemoc Jasso MD [address], [address], [place], [address] , [facility] [employer] [facility] 3 14:39:40 Exercise-i nduced asthma 80117515 Active 2022 Cuauhtemoc Jasso MD [address], [address], [place], [address] , [facility] [employer] [facility] 3 15:48:33 Right upper quadrant pain 579536844 Active 2022 Cuauhtemoc Jasso MD [address], [address], [place], [address] , [facility] [employer] [facility] 3 16:46:11 Nausea 273528403 Active 2022 Cuauhtemoc Jasso MD [address], [address], [place], [address] , [facility] [employer] [facility] 3 16:47:11 Gallstone 671166500 Active 2022 Cuauhtemoc Jasso MD [address], [address], [place], [address] , [facility] [employer] [facility] 3 15:31:56 Chronic idiopathic constipati on 86063799 Active 2022 Cuauhtemoc Jasso MD [address], [address], [place], [address] , [facility] [employer] [facility] 3 15:33:18 Cholelithi asis without obstructio n 99921152 Active 2022 Nilay jacobsen MD [address] [address], [place], [address] , [facility] [facility] 3 13:47:53 Bronchitis 02370108 Active 2022 Cuauhtemoc Jasso MD [address], [address], [place], [address] , [facility] 3 16:53:45 Cough 57133978 Active 2022 Cuauhtemoc Jasso MD [address], [address], [place], [address] , [facility] 3 16:13:16 Gastroesop hageal reflux disease without esophagiti s 571043641 Active 2022 Cuauhtemoc Jasso MD [address], [place], [address] , [facility] 3 15:17:44 Acute non-ST segment elevation myocardial infarction 577661853 Active 2022 Cuauhtemoc Jasso MD [address], [place], [address] , [facility] 3 15:39:28 Acid reflux 569359625 Active 2023 NENO Gayle [address], [address], [place], [address] , [facility] 4 16:23:06 Keloid scar 18636447 Active 2023 NENO Gayle [address], [address], [place], [address] , [facility] 4 16:30:20 Diverticul itis of colon 654275098 Active 2023 Cuauhtemoc Jasso MD [address], [place], [address] , [facility] 4 09:22:23 COVID-19 269335140 Active 2023 Cuauhtemoc Jasso MD [address], [place], [address] , [facility] 4 16:28:55 Dyspnea on exertion 51961665 Active 2023 Cuauhtemoc Jasso MD [address], [place], [address] , [facility] 4 14:52:11 Recurrent falls 021787439 Active 2024 Cuauhtemoc Jasso MD [address] [facility], [address] [address], [place], [address] , [facility] 5 14:39:17 Pain in left arm 785936408 Active 2024 Cuauhtemoc Jasso MD [address] [facility], [address] [address], [place], [address] , [facility] 5 14:39:35 Chronic pain of left upper limb 7616205989806 9103 Active 2024 Cuauhtemoc Jasso MD [address] [facility], [address] [address], [place], [address] , [facility] 5 09:49:06 Pain of left shoulder joint 5634761969070 9109 Active 2024 Park Crow null, [facility] [facility] 5 15:17:32 Pain of left shoulder region Active 2024 ALVAREZ Trinidad null, [facility] 5 14:30:30 Chronic low back pain 599872415 Active 2024 Cuauhtemoc Jasso MD [address] [facility], [address], [address] , [facility] 5 10:01:23 Problem Notes None recorded. Procedures Surgical History Date Name Laterality Status Provider Name and Address Organization Details Recorded Time 08/10/19 24 cholecystectomy completed Jackeline Hernandez RN [facility] [employer] [facility] 10/19/2023 16:00:46 12/03/19 23 Ear Irrigation completed Cuauhtemoc Jasso MD [address] [facility], [address] [address], [place], [address], [facility] 12/02/2022 16:16:55 Knee arthroscopy/surger y completed Not Available [facility] 07/09/2022 23:36:37 Cardiac Stent Placement completed Not Available [facility] 07/09/2022 23:36:37 Breast augmentation w/implt completed Not Available [facility] 07/09/2022 23:36:37 tonsillectomy completed Not Available [facility] 07/09/2022 23:36:37 Imaging Results None recorded. Procedure Notes None recorded. Medical Equipment None Reported. Allergies Allergen ID Allergen Name Allergen Category Reaction Reaction Severity Criticality Documentation Date Start Date Code Code System Note Provider Name and Address Organization Details Recorded Time 68200 Flagyl medicatio n Not available Not available Not available 07/09/2022 6 RxNorm Not Available [facility] 3 23:39:37 45240 Levaquin medicatio n Not available Not available Not available 03/08/2024 41438 2 RxNorm Mulu Coto RN [facility], [place] [facility] [employer] 4 14:13:06 64993 levofloxa john medicatio n Not available Not available Not available 03/27/2025 40224 RxNorm Not Available [facility] [employer] [facility] 5 05:34:48 49536 metronida zole medicatio n Not available Not available Not available 03/27/2025 6922 RxNorm Not Available [facility] [employer] [facility] 5 05:34:48 Medications Name Sig Start Date Stop Date Status Note LastModified by Organization Details LastModified Time losartan 50 mg tablet TAKE 1 TABLET BY MOUTH DAILY 06/22 completed Not Available Not Available Not Available furosemide 40 mg tablet TAKE 1 TABLET BY MOUTH EVERY DAY IN THE MORNING 04/20 completed Not Available Not Available Not Available atorvastati n 40 mg tablet TAKE 1 TABLET BY MOUTH EVERY NIGHT AT BEDTIME 2024 active Not Available Not Available Not Avai lable potassium chloride ER 10 mEq capsule,ext ended release TAKE 1 CAPSULE BY MOUTH DAILY 2024 active Not Available Not Available Not Avai lable carvedilol 6.25 mg tablet TAKE 1 TABLET BY MOUTH EVERY 12 HOURS active Not Available Not Available No t Available doxycycline hyclate 100 mg capsule TAKE 1 CAPSULE BY MOUTH TWICE DAILY FOR 10 DAYS DIRECTED 11/20 completed Not Available Not Available Not Available carvedilol 12.5 mg tablet TAKE 1 TABLET BY MOUTH EVERY 12 HOURS active Not Available Not Available No t Available citalopram 40 mg tablet TAKE 1 TABLET BY MOUTH EVERY DAY IN THE MORNING 2024 active Not Available Not Available Not Avai lable trazodone 50 mg tablet Take 1 tablet every day by oral route at bedtime for 90 days. 2024 active Not Available Not Available Not Avai lable cetirizine 10 mg tablet Take 1 tablet every day by oral route as directed for 90 days. 03/17 completed Not Available Not Available Not Available azithromyci n 250 mg tablet TAKE 2 TABLETS (500 MG) BY ORAL ROUTE ONCE DAILY FOR 1 DAY THEN 1 TABLET (250 MG) BY ORAL ROUTE ONCE DAILY FOR 4 DAYS 04/20 completed Not Available Not Available Not Available aspirin 325 mg tablet Take 1 tablet every day by oral route. 11/20 completed Not Available Not Available Not Available benzonatate 200 mg capsule Take 1 capsule every 8 hours by oral route as needed for 10 days. 12/23 completed Not Available Not Available Not Available hydrocodone 5 mg-acetamin ophen 325 mg tablet TAKE 1 TABLET BY MOUTH EVERY 8 HOURS NEEDED FOR PAIN 03/08 completed Not Available Not Available Not Available ondansetron HCl 4 mg tablet Take 1 tablet every 6-8 hours by oral route as needed for 5 days. 01/16 completed Not Available Not Available Not Available Medrol (Arturo) 4 mg tablets in a dose pack Take 1 dose pk every week by oral route as directed for 6 days. 12/19 completed Not Available Not Available Not Available Debrox 6.5 % ear drops INSTILL 4 DROPS INTO AFFECTED EAR(S) BY OTIC ROUTE 2 TIMES PER DAY 10/18 completed Not Available Not Available Not Available phentermine 15 mg capsule TAKE 1 CAPSULE BY MOUTH EVERY DAY IN THE MORNING 04/20 completed Not Available Not Available Not Available penicillin V potassium 500 mg tablet TAKE 1 TABLET BY MOUTH FOUR TIMES DAILY UNTIL ALL TAKEN active Not Available Not Available No t Available clopidogrel 75 mg tablet TAKE 1 TABLET BY MOUTH EVERY DAY 2024 active Not Available Not Available Not Avai lable ciprofloxac in 500 mg tablet TAKE 1 TABLET BY MOUTH EVERY 12 HOURS FOR 7 DAYS DIRECTED 03/08 completed Not Available Not Available Not Available tramadol 50 mg tablet Take 1 tablet every 8 hours by oral route as needed for 7 days. 12/20 completed Not Available Not Available Not Available acetaminoph en 500 mg tablet TAKE 2 TABLETS BY MOUTH THREE TIMES DAILY NEEDED FOR PAIN FOR 7 DAYS 10/18 completed Not Available Not Available Not Available triamcinolo ne acetonide 0.1 % topical cream APPLY THIN LAYER TOPICALLY TO THE AFFECTED AREA TWICE DAILY 01/16 completed Not Available Not Available Not Available phentermine 30 mg capsule TAKE 1 CAPSULE BY MOUTH EVERY DAY DIRECTED 04/20 completed Not Available Not Available Not Available alprazolam 0.25 mg tablet TAKE 1 TABLET BY MOUTH EVERY DAY NEEDED active Not Available Not Available No t Available famotidine 20 mg tablet Take 1 tablet twice a day by oral route as directed for 90 days. 08/01 completed Not Available Not Available Not Available cephalexin 500 mg capsule Take 1 capsule every 6 hours by oral route as directed for 7 days. active Not Available Not Available No t Available pantoprazol e 40 mg tablet,vicki yed release TAKE 1 TABLET BY MOUTH EVERY DAY IN THE MORNING active Not Available Not Available No t Available buspirone 10 mg tablet Take 1 tablet every 12 hours by oral route as needed for 90 days. 10/21 completed Not Available Not Available Not Available losartan 25 mg tablet TAKE 1 TABLET BY MOUTH EVERY DAY DIRECTED 2024 active Not Available Not Available Not Avai lable docusate sodium 100 mg capsule Take 1 capsule twice a day by oral route as needed for 90 days. 2024 active Not Available Not Available Not Avai lable dorzolamide 22.3 mg-timolol 6.8 mg/mL eye drops INSTILL 1 DROP IN EACH EYE TWICE DAILY active Not Available Not Available No t Available mupirocin 2 % topical ointment APPLY EXTERNALL Y TO THE AFFECTED AREA TWICE DAILY 10/18 completed Not Available Not Available Not Available furosemide 20 mg tablet TAKE 1 TABLET BY MOUTH EVERY MORNING 2024 active Not Available Not Available Not Avai lable ergocalcife rol (vitamin D2) 1,250 mcg (50,000 unit) capsule TAKE 1 CAPSULE BY MOUTH EVERY WEEK DIRECTED 2024 active Not Available Not Available Not Avai lable polyethylen e glycol 3350 17 gram/dose oral powder Take 17 g every day by oral route as directed for 90 days. 2024 active Not Available Not Available Not Avai lable albuterol sulfate HFA 90 mcg/actuati on aerosol inhaler INHALE 2 PUFFS BY MOUTH EVERY 6 HOURS NEEDED active Not Available Not Available No t Available ondansetron 4 mg disintegrat ing tablet Place 1 tablet every 6-8 hours by transling ual route as needed for 5 days. 03/08 completed Not Available Not Available Not Available fluticasone propionate 50 mcg/actuati on nasal spray,suspe nsion Himrod 2 sprays every day by intranasa l route as directed for 30 days. 10/21 completed Not Available Not Available Not Available amoxicillin 875 mg-potassiu m clavulanate 125 mg tablet TAKE 1 TABLET BY MOUTH EVERY 12 HOURS 03/08 completed Not Available Not Available Not Available oxycodone 5 mg tablet TAKE 1 TABLET BY MOUTH EVERY 4 HOURS NEEDED FOR PAIN 10/18 completed Not Available Not Available Not Available Asprin Ec Low Dose 81 mg tablet,vicki yed release Take 1 tablet every day by oral route. 03/23 completed Not Available Not Available Not Available Folplex 2.2 mg-25 mg-0.5 mg tablet TAKE 1 TABLET BY MOUTH EVERY DAY 2024 active Not Available Not Available Not Avai lable Calcium 600 + D(3) 600 mg-10 mcg (400 unit) tablet Take 1 tablet twice a day by oral route as directed for 90 days. 10/18 completed Not Available Not Available Not Available Contrave 8 mg-90 mg tablet,exte nded release Take 2 tablets twice a day by oral route as directed for 30 days. 2024 active Not Available Not Available Not Avai lable aspirin 80 mg tablet Take 1 tablet every day by oral route at bedtime. 11/20 completed Not Available Not Available Not Available BinaxNOW COVID-19 Ag Self Test kit TEST DIRECTED TODAY 10/21 completed Not Available Not Available Not Available Wegovy 0.25 mg/0.5 mL subcutaneou s pen injector INJECT 0.25MG SUBCTANEO USLY ONCE WEEKLY DIRECTED 08/11 completed Not Available Not Available Not Available Paxlovid 300 mg (150 mg x 2)-100 mg tablets in a dose pack FOLLOW PACKAGE DIRECTION S 03/08 completed Not Available Not Available Not Available Zepbound 2.5 mg/0.5 mL subcutaneou s pen injector active Not Available Not Available Not Available Vitals Date Recorded Body height Body mass index (BMI) Body weight Body temperature Oxygen saturation Heart rate Systolic And Diastolic Provider Name and Address Organization Details Last Updated DateTime 160.02 cm 34.1 kg/m2 96807.8 4 g 97.3 [degF] 98 % 62 /min 130/70 mm[Hg] Briana Hodge RN [facility] [employer] [facility] 14:32:53 Date Recorded Body height Body mass index (BMI) Body weight Body temperature Oxygen saturation Heart rate Systolic And Diastolic Provider Name and Address Organization Details Last Updated DateTime 160.02 cm 33.9 kg/m2 54053.9 4 g 97.6 [degF] 96 % 72 /min 120/70 mm[Hg] Briana Hodge RN [facility] [employer] [facility] 16:36:43 Date Recorded Body height Body mass index (BMI) Body weight Provider Name and Address Organization Details Last Updated DateTime 01/16/2025 160.02 cm 33.5 kg/m2 61400.96 g Parkem Crow [facility] [employer] [facility] 01/16/2025 15:11:42 Date Recorded Body height Body mass index (BMI) Body weight Pain severity - 0-10 verbal numeric rating [Score] - Reported Provider Name and Address Organization Details Last Updated DateTime 03/27/2025 160.02 cm 33.5 kg/m2 60760.96 g ALVAREZ Olivo [facility] [employer] [facility] 03/27/2025 14:29:56 Date Recorded Body height Body mass index (BMI) Body weight Body temperature Oxygen saturation Heart rate Systolic And Diastolic Provider Name and Address Organization Details Last Updated DateTime 11/20/202 5 160.02 cm 35.1 kg/m2 80864.6 4 g 96.9 [degF] 97 % 62 /min 120/74 mm[Hg] Briana Hodge RN [place] [facility] [employer] 09:52:25 Social History Question Answer Notes LastModified by Organization Details LastModified Time Tobacco Smoking Status Never Smoker Not Available [facility] 07/09/2022 23:36:28 Do You Have An Advance Directive? No MIGRATION.030 [id number] Information not available 07/09/2022 Do You Wear A Helmet When Biking? No MIGRATION.030 [id number] Information not available 07/09/2022 Are You Blind Or Do You Have Difficulty Seeing? No MIGRATION.030 [id number] Information not available 07/09/2022 Is Blood Transfusion Acceptable In An Emergency? Yes Information not available 11/20/2022 What Is Your Level Of Caffeine Consumption? Heavy 1 Cup Of Coffee/day Pitcher Of Sweet Tea/day 2 Or 3 (16 Oz)bottles Of Coke Or Pepsi/day [id number] Information not available 03/30/2025 What Is Your Code Status? Full Code Information not available 11/20/2022 In The 14 Days Before Symptom Onset, Have You Had Close Contact With A Laboratory-confi rmed COVID-19 While That Case Was Ill? No MIGRATION.030 [id number] Information not available 07/09/2022 In The 14 Days Before Symptom Onset, Have You Had Close Contact With A Person Who Is Under Investigation For COVID-19 While That Person Was Ill? No MIGRATION.030 [id number] Information not available 07/09/2022 Are You Deaf Or Do You Have Serious Difficulty Hearing? No MIGRATION.030 [id number] Information not available 07/09/2022 What Type Of Diet Are You Following? REGULAR MIGRATION.030 [id number] Information not available 07/09/2022 Have There Been Any Changes To Your Family Or Social Situation? Yes Passed Back In Mar. MIGRATION.030 [id number] Information not available 07/09/2022 Are There Any Guns Present In Your Home? No MIGRATION.030 [id number] Information not available 07/09/2022 Do You Use Insect Repellent Routinely? No MIGRATION.030 [id number] Information not available 07/09/2022 Where [facility] You Live? [facility] MIGRATION.0301 [id number] Information not available 07/09/2022 Do You Have A Medical Power Of Gandy Dancer? No Discuss With Children Already MIGRATION.0301 [id number] Information not available 07/09/2022 Have You Ever Been Counseled For Unhealthy Alcohol Use? No MIGRATION.0301 [id number] Information not available 07/09/2022 Do You Have Any Pets? Yes MIGRATION.0301 [id number] Information not available 07/09/2022 What Is Your Relationship Status? MIGRATION.0301 [id number] Information not available 07/09/2022 Do You Use Your Seat Belt Or Car Seat Routinely? Yes MIGRATION.0301 [id number] Information not available 07/09/2022 Do You Have Smoke And Carbon Monoxide Detectors In Your Home? Yes MIGRATION.0301 [id number] Information not available 07/09/2022 Are You Passively Exposed To Smoke? No MIGRATION.0301 [id number] Information not available 07/09/2022 Are There Any Smokers In Your House? No MIGRATION.0301 723672 Information not available 07/09/2022 Do You Participate In Social Media? No MIGRATION.0301 [id number] Information not available 07/09/2022 Do You Use Sunscreen Routinely? Yes MIGRATION.0301 [id number] Information not available 07/09/2022 Has Tobacco Cessation Counseling Been Provided? No MIGRATION.0301 [id number] Information not available 07/09/2022 Have You Recently Traveled Abroad? No MIGRATION.0301 [id number] Information not available 07/09/2022 Do You Have Difficulty Walking Or Climbing Stairs? No MIGRATION.0301 [id number] Information not available 07/09/2022 Are You Currently In School? No MIGRATION.0301 [id number] Information not available 07/09/2022 Do You Have Any Dietary Restrictions? No MIGRATION.0301 813243 Information not available 07/09/2022 Sex: Unknown Functional Status Question Answer Note LastModified by Organizat ion Details LastModified Time Do you use any illicit or recreational drugs? No MIGRATION.[id number] 026 Information not available 07/09/2022 Do you or have you ever used any other forms of tobacco or nicotine? No MIGRATION.[id number] 026 Information not available 07/09/2022 What is your level of alcohol consumption? Occasional MIGRATION.[id number] 026 Information not available 07/09/2022 Are you currently employed? No Information not available 11/20/2022 Do you have transportation difficulties? No MIGRATION.6923897 026 Information not available 07/09/2022 Are you able to walk independently without assistance or assistive devices? [employer] MIGRATION.[id number] 026 Information not available 07/09/2022 Do you have difficulty doing errands alone? No MIGRATION.3871100 026 Information not available 07/09/2022 Are you able to care for yourself independently? No MIGRATION.7672427 026 Information not available 07/09/2022 Do you have difficulty dressing, bathing, grooming, or toileting? No MIGRATION.[id number] 026 Information not available 07/09/2022 What is your exercise level? None Information not available 11/20/2022 Mental Status Question Answer Note LastModified by Organizat ion Details LastModified Time Do you feel stressed (tense, restless, nervous, or anxious, or unable to sleep at night)? [id number] Information not available 11/20/2022 Do you have difficulty concentrating, remembering or making decisions? No MIGRATION.[id number] 26 Information not available 07/09/2022 Family History Relationship Description Onset Age of this Age Resolved Age Notes LastModified by Organization Details LastModified Time Mother Family history of stroke MIGRATION.958 [id number] Not available 07/09/2022 23:36:39 Mother Hypertensive disorder MIGRATION.841 [id number] Not available 07/09/2022 23:36:39 Mother Diabetes mellitus MIGRATION.972 [id number] Not available 07/09/2022 23:36:39 Mother Arthritis MIGRATION.752 [id number] Not available 07/09/2022 23:36:39 Mother Heart disease MIGRATION.485 [id number] Not available 07/09/2022 23:36:39 Father Malignant neoplasm of lung MIGRATION.634 [id number] Not available 07/09/2022 23:36:39 Father Arthritis MIGRATION.218 [id number] Not available 07/09/2022 23:36:40 Brother Diabetes mellitus MIGRATION.346 [id number] Not available 07/09/2022 23:36:40 Brother Hypertensive disorder MIGRATION.659 [id number] Not available 07/09/2022 23:36:40 Brother Heart disease MIGRATION.178 [id number] Not available 07/09/2022 23:36:40 Medical History Condition Response INSOMNIA Y HIGH CHOLESTEROL / HYPERLIPIDEMIA Y DEPRESSION (INCLUDING POST ) Y FIBROMYALGIA Y OSTEOPOROSIS Y ARTHRITIS Y USE OF BLOOD THINNERS Y SKIN PROBLEMS Y HEARTBURN / REFLUX Y HEART DISEASE/HEART PROBLEMS Y HYPERTENSION Y CANCER: SPECIFY Y Gall Stones Y Gynecological History Statement/Question Response Abnormal Pap N If Post Menopausal, Age at Menopause 52 Date of Last Pap Smear Date of Last Colonoscopy Most Recent Mammogram Most Recent Bone Density Obstetrics History GPAL:G 0 P 0 0 0 0 Immunizations Vaccine Type Date Status Note Provider Nam e and Address Organization Details Recorded Time Influenza, high-dose, trivalent, PF 5 completed JEFFREY Blue, [employer] [facility] [employer] 03/30/2025 10:58:28 Tdap 1 completed Not Available [facility] 07/09/2022 23:39:34 Influenza, high-dose, quadrivalent, PF 1 completed Not Available [facility] 07/09/2022 23:39:34 Influenza, high-dose, quadrivalent, PF 2 completed Not Available [facility] 07/09/2022 23:39:34 Influenza, high-dose, quadrivalent, PF 3 completed Noman Landon [facility], [employer] [facility] [employer] 01/29/2023 09:40:02 Influenza, high-dose, trivalent, PF 4 completed Cuauhtemoc Jasso MD [address] [place] [address], [address], [employer] [facility] [employer] 03/08/2024 14:54:13 Pneumococcal conjugate PCV20, polysaccharide [id number] conjugate, adjuvant, PF 4 completed JEFFREY Rider, [employer] [facility] [employer] 03/23/2024 11:59:47 pneumococcal polysaccharide PPV23 3 completed JEFFREY Awan, [employer] [facility] [employer] 11/20/2022 11:16:38 Past Encounters Encounter ID Performer Location Encounter Start Date Encounter Closed Date Diagnosis/Indication Diagnosis SNOMED-CT Code Diagnosis ICD10 Code Diagnosis IMO Codes Diagnosis Note [id number] Cuauhtemoc Jasso MD [facility] [address] [place] [address] 01/24/2021 00:00:00 01/24/2021 17:29:11 [id number] Cuauhtemoc Jasso MD [facility] [address] [place] [address] 02/04/2021 00:00:00 02/04/2021 16:21:38 [id number] Cuauhtemoc Jasso MD [facility] [address] [place] [address] 06/11/2021 00:00:00 06/11/2021 14:36:29 [id number] Cuauhtemoc Jasso MD [facility] [address] [place] [address] 08/26/2021 00:00:00 08/26/2021 15:32:29 [id number] Cuauhtmeoc Jasso MD [facility] [address] [place] [address] 11/14/2021 00:00:00 11/14/2021 16:04:07 [id number] [employer] IGRATION_ DEFAULT_1 _1 , 03/17/2022 00:00:00 03/18/2022 10:00:27 [id number] [employer] IGRATION_ DEFAULT_1 _1 , 03/31/2022 00:00:00 03/31/2022 14:41:44 [id number] Cuauhtemoc Jasso MD [facility] [place] [address] [place] [address] 03/31/2022 00:00:00 03/31/2022 17:46:58 [id number] [facility] [place] [address] [place] [address] 05/19/2022 00:00:00 06/04/2022 16:42:29 [id number] Aashish Chiang DPM [facility] [place] [address] [place] [address] 06/16/2022 00:00:00 06/18/2022 09:20:15 [id number] Aashish Chiang DPM [facility] [place] [address] [place] [address] 08/11/2022 16:41:43 08/12/2022 13:51:14 Closed fracture of fifth metatarsal bone 20096351 S92.355D x-rays reviewed-H ealed fracture 5th metatarsal basemay return to normal shoe gearSlow return to activityFo llow-up as needed Acquired r ight hallux rigidus [id number] 30807 M20.21 Rx custom orthoticsx -rays reviewed with the patientdis cussed optionsPat ient defers surgery at this time timewill try custom orthotics with Flynn's extensionf ollow-up as needed [id number] Cuauhtemoc Jasso MD [address] [address] 10/21/2022 16:50:44 10/21/2022 17:31:39 Anxiety disorder 539841961 F41.9 Depressive disorder 3548 9007 F32.9 Hyperlipidemia 01552202 E78.5 Hypertensive disorder 38 982471 I10 Congestive heart failure 91601472 I50.9 Chronic hypokalemia 1046 9003 E87.6 Folliculitis 56959625 L7 3.9 Fibromyalgia 415349940 M 79.7 Screening mammography 24 220823 Z12.31 Screening for osteoporosis 457372084 Z13.820 Chronic insomnia 1958996 04 F51.04 [id number] Cuauhtemoc Jasso MD [address] [address] 11/20/2022 09:42:41 11/20/2022 10:32:26 Depressive disorder 05953043 F32.9 Anxiety disorder 4161076 06 F41.9 Chronic insomnia 8193872 04 F51.04 Hyperlipidemia 97500461 E78.5 Hypertensive disorder 38 498282 I10 Congestive heart failure 05394241 I50.9 Chronic hypokalemia 1046 9003 E87.6 Fibromyalgia 798414592 M 79.7 Coronary atherosclerosis 705722572 I25.10 Obesity 547974149 E66.9 Active or passive immunization 469645392 Z23 Impacted c erumen in right ear 3293481692 053653 H61.21 Folliculitis 85552705 L7 3.9 [id number] Cuauhtemoc Jasso MD [place] [address] 1 12/02/2022 16:12:40 12/02/2022 16:43:33 Depressive disorder 13503822 F32.9 Anxiety disorder 3709082 06 F41.9 Chronic insomnia 0628707 04 F51.04 Hyperlipidemia 97213701 E78.5 Hypertensive disorder 38 899571 I10 Congestive heart failure 27269192 I50.9 Chronic hypokalemia 1046 9003 E87.6 Fibromyalgia 183077858 M 79.7 Coronary atherosclerosis 351124494 I25.10 Obesity 120302552 E66.9 Impacted c erumen in right ear 2153655184 192413 H61.21 Osteopenia 229489569 M85 .80 Vitamin D deficiency 347 53636 E55.9 [id number] Cuauhtemoc Jasso MD [place] [address] 1 01/26/2023 15:32:28 01/26/2023 16:05:08 Anxiety disorder 586895320 F41.9 Depressive disorder 3548 9007 F32.9 Obesity 627757110 E66.9 Chronic insomnia 1873182 04 F51.04 Fibromyalgia 483882572 M 79.7 Administra tion of influenza vaccine 53134208 Z23 Exercise-i nduced asthma 43914740 J45.990 Coronary atherosclerosis 217082136 I25.10 [id number] Cuauhtemoc Jasso MD [place] [address] 1 02/12/2023 16:32:18 02/12/2023 17:16:14 Coronary atherosclerosis 168777387 I25.10 Right uppe r quadrant pain 310417177 R10.11 Nausea 484091943 R11.0 Anxiety disorder 5067617 06 F41.9 [id number] Cuauhtemoc Jasso MD [address] [address] 02/26/2023 15:09:35 02/26/2023 15:44:18 Right upper quadrant pain 687408582 R10.11 Gallstone 764336522 K80. 20 Chronic id iopathic constipation 35287742 K59.04 Obesity 588002513 E66.9 [id number] Nilay jacobsen MD [facility] General Surgery 4 [facility], [address] [place] [address] 03/12/2023 11:38:33 03/12/2023 13:24:31 Cholelithiasis without obstruction 17395097 K80.20 [id number] Cuauhtemoc Jasso MD [address] [address] 04/20/2023 15:04:46 04/20/2023 15:44:29 Gallstone 533277069 K80.20 Right uppe r quadrant pain 599791141 R10.11 Chronic id iopathic constipation 30002848 K59.04 Obesity 175823623 E66.9 Gastroesop hageal reflux disease without esophagitis 631817890 K21.[address] [facility] 039892694 Z76.89 Acute non- ST segment elevation myocardial infarction 497912029 I21.4 04/02 Congestive heart failure 55531502 I50.9 Coronary atherosclerosis 884509538 I25.10 [id number] Cuauhtemoc Jasso MD [address] [address] 10/19/2023 15:36:48 10/19/2023 17:21:43 Keloid scar 96504642 L91.0 Acid reflux 610148960 K2 1.9 Continue Famotidine [id number] Cuauhtemoc Jasso MD [address] [address] 03/08/2024 14:02:52 03/08/2024 14:55:34 Acute non-ST segment elevation myocardial infarction 222995155 I21.4 History - in 03/2023 Gastroesop hageal reflux disease without esophagitis 972826143 K21.9 Congestive heart failure 21430742 I50.9 Coronary atherosclerosis 101619842 I25.10 Chronic id iopathic constipation 36874024 K59.04 Obesity 676064740 E66.9 Administra tion of influenza vaccine 50542606 Z23 Nausea 273901519 R11.0 Dyspnea on exertion 6084 5006 R06.09 [id number] Cuauhtemoc Jasso MD [place] [address] 1 03/23/2024 11:00:56 03/23/2024 11:45:51 Dyspnea on exertion 21339350 R06.09 Congestive heart failure 89965525 I50.9 Acute non- ST segment elevation myocardial infarction 457393796 I21.4 History - in 03/2023 Gastroesop hageal reflux disease without esophagitis 020129935 K21.9 Coronary atherosclerosis 308526710 I25.10 Chronic id iopathic constipation 87514074 K59.04 Obesity 397737655 E66.9 Nausea 325268925 R11.0 Hyperlipidemia 70171993 E78.5 Screening mammography 24 667018 Z12.31 Vitamin D deficiency 347 95202 E55.9 Fibromyalgia 701814454 M 79.7 Active or passive immunization 356610376 Z23 [id number] Cuauhtemoc Jasso MD [place] [address] 1 04/06/2024 14:09:03 04/06/2024 14:44:22 Gastroesophageal reflux disease without esophagitis 004888961 K21.9 Chronic id iopathic constipation 69006128 K59.04 Dyspnea on exertion 6084 5006 R06.09 Congestive heart failure 49370003 I50.9 Acute non- ST segment elevation myocardial infarction 513243463 I21.4 History - in 03/2023 Coronary atherosclerosis 365399382 I25.10 Obesity 212087057 E66.9 Hyperlipidemia 65258470 E78.5 Vitamin D deficiency 347 35358 E55.9 Fibromyalgia 271372444 M 79.7 [id number] [place] [address] 08/01/2024 15:11:21 08/01/2024 15:47:04 Hyperlipidemia 31808160 E78.5 Gastroesop hageal reflux disease without esophagitis 168314002 K21.9 Chronic id iopathic constipation 49493806 K59.04 Vitamin D deficiency 347 06163 E55.9 Fibromyalgia 119090884 M 79.7 Dyspnea on exertion 6084 5006 R06.09 Congestive heart failure 86685965 I50.9 Acute non- ST segment elevation myocardial infarction 754621849 I21.4 History - in 03/2023 Coronary atherosclerosis 083819837 I25.10 Obesity 473039146 E66.9 Depressive disorder 3548 9007 F32.9 Chronic insomnia 6949312 04 F51.04 Cough 90356627 R05.9 [id number] Cuauhtemoc Jasso MD [place] [address] 1 12/06/2024 14:16:20 12/06/2024 14:49:18 Gastroesophageal reflux disease without esophagitis 166098176 K21.9 Chronic id iopathic constipation 81433099 K59.04 Hyperlipidemia 02563305 E78.5 Vitamin D deficiency 347 41853 E55.9 Fibromyalgia 543926217 M 79.7 Congestive heart failure 27707971 I50.9 Acute non- ST segment elevation myocardial infarction 733494113 I21.4 History - in 03/2023 Coronary atherosclerosis 474399991 I25.10 Obesity 404778740 E66.9 Depressive disorder 3548 9007 F32.9 Chronic insomnia 6285844 04 F51.04 Cough 96555908 R05.9 Recurrent falls 05116248 2 R29.6 63355 Pain in left arm 8946407 00 M79.602 660863 Chronic pa in of left upper limb 3858397455 9236501 M25.512 G89.29 535213 Ophthalmic examination and evaluation 18384518 Z01.00 Screening mammography 24 587463 Z12.31 [id number] Cuauhtemoc Jasso MD [address] [address] 01/02/2025 16:22:55 01/02/2025 16:52:19 Hyperlipidemia 14707560 E78.5 Gastroesop hageal reflux disease without esophagitis 335880354 K21.9 Chronic id iopathic constipation 43832454 K59.04 Vitamin D deficiency 347 19814 E55.9 Fibromyalgia 295121613 M 79.7 Congestive heart failure 94444969 I50.9 Acute non- ST segment elevation myocardial infarction 295955239 I21.4 History - in 03/2023 Coronary atherosclerosis 358014599 I25.10 Obesity 897821519 E66.9 Depressive disorder 3548 9007 F32.9 Chronic insomnia 4621723 04 F51.04 Recurrent falls 73589716 2 R29.6 06558 Pain in left arm 7171161 00 M79.602 123209 Chronic pa in of left upper limb 2005281115 1816361 M25.512 G89.29 511368 Screening for malignant neoplasm of colon 124303835 Z12.11 [id number] Gabriel Lowe MD [facility] [place] [address] [place] [address] 01/16/2025 14:42:10 01/16/2025 16:43:42 Pain of left shoulder joint 5204385284 6735720 M25.512 743188 [id number] Gabriel Lowe MD [facility] [place] [address] [place] [address] 03/27/2025 14:26:49 03/27/2025 14:48:26 Pain of left shoulder region 7433330746 M25.512 20596536 Chronic pa in of left upper limb 9326385701 7255904 M79.602 G89.29 35768950 [id number] Cuauhtemoc Jasso MD [address] [address] 03/30/2025 09:42:25 03/30/2025 10:15:46 Chronic idiopathic constipation 88646934 K59.04 Hyperlipidemia 59998500 E78.5 Gastroesop hageal reflux disease without esophagitis 428399099 K21.9 Vitamin D deficiency 347 34232 E55.9 Fibromyalgia 615713225 M 79.7 Congestive heart failure 25480735 I50.9 Acute non- ST segment elevation myocardial infarction 378970213 I21.4 History - in 03/2023 Coronary atherosclerosis 836904841 I25.10 Obesity 705172909 E66.9 Depressive disorder 3548 9007 F32.9 Chronic insomnia 8692299 04 F51.04 Chronic pa in of left upper limb 6469138181 4814359 M25.512 G89.29 454568 Screening mammography 24 933183 Z12.31 Postmenopausal state 764 10725 Z78.0 Needs infl uenza immunization 657154081 Z23 971539 Chronic low back pain 27 3908050 M54.40 G89.29 23274094 Health Concerns Section Related Observation LastModified by Organization Detai ls LastModified Time None Recorded Concern Status LastModified by Organization Details LastModified Time None Recorded Advance Directives Directive N: Payers Insurance Date Sequence Insurance Name Policy Number Policy Ramos Covered Member ID Ramos Member ID Guarantor Name 03/24/2025 1 [place] Daisy Rodriguez [id number] Daisy Rodriguez 03/30/2025 2 [place] [address] Michael [id number] Daisy Rodriguez Notes Date Note Type Note Provider Name and Address Organization Details Recorded Time 12/06/2024 text/html FUV + ACV: C/o s/p fall couple months ago when she was mowing lawn. C/o pain over her Lt arm since than and she has limited ROM due to that. No head trauma/LOC. Pt is here for f/u on her meds and chronic conditions. Feeling overall better than last visit. Denies any problem with meds.Doing well with his mood & anxiety and current meds. Denies any mood swings/SI/HI.Pt is checking her BP at home and its good as per pt. Pt is f/u with Cardio for her CAD, CHF and HTN and is on meds by them. Pt sees them every 3-4 months. Cuauhtemoc Jasso MD [address] [place] [address], [address], [place], [address], [facility] 12/06/2024 15:07:27 01/02/2025 text/html Pt is here for f/u on her x-rays and pain. Feeling overall better than last visit. Denies any problem with meds. C/o s/p fall couple months ago when she was mowing lawn. C/o pain over her Lt arm since than and she has limited ROM due to that. No head trauma/LOC.Doing well with his mood & anxiety and current meds. Denies any mood swings/SI/HI.Pt is checking her BP at home and its good as per pt. Pt is f/u with Cardio for her CAD, CHF and HTN and is on meds by them. Pt sees them every 3-4 months. Cuauhtemoc Jasso MD [address] [facility], [address], [place], [address], [facility] 01/02/2025 17:21:23 03/30/2025 text/html Pt is here for her annual exam. Feeling overall better than last visit. Denies any problem with meds. Still concerned about her wt gain. Pt has tried Wegovy and Phentermine in the past and she did not tolerate them. So she doesn't want to take them again.Doing well with his mood & anxiety and current meds. Denies any mood swings/SI/HI.Pt is checking her BP at home and its good as per pt. Pt is f/u with Ortho for her chronic shoulder pain and is doing better now. Pt is f/u with Cardio for her CAD, CHF and HTN and is on meds by them. Pt sees them every 3-4 months. Cuauhtemoc Jasso MD [address] [facility], [address], [place], [address], [facility] 03/30/2025 10:14:45 OBGyn Episode No OBEpisode recorded.
--- OUTSIDE RECORDS SUMMARY | 2025-03-30 17:33 | XMS_ITS | Continuity of Care Document ---
Author Organization [place] - [facility], [facility] [place] [facility] David Address [address] [place] [address] Care Team Providers Care Assurance Associate Name Role Phone CUAUHTEMOC JASSO Primary Care Provider CUAUHTEMOC JASSO Referring Provider [phone] Assessment Encounter Date Assessment Date Assessment LastModified by Organization Details LastModified Time 01/02/2025 01/02/2025 69 yo F with - [...] per schedule. Cont f/u with Cardio at [place] as per schedule. Offered to refer to [...] in 3 months. Annual labs in 04/04. [email or web address] Not available 01/02/2025 17:20:34 Plan of Treatment Reminders Order Date Submit Date Provider Last Modified By Organization Details Last Modified Time Details Appointments Physical/ Annual Wellness 30 2024 09:00A M Cuauhtemoc Jasso MD Not available Not available Not available Follow Up 15 2024 11:00A M Cuauhtemoc Jasso MD Not available Not available Not available Lab noninvasi ve colorecta l cancer DNA + occult blood screening , QL, stool 2024 025 [email or web address] [facility], [address], [place], [address], 01/11/2025 14:37:12 Referral orthopedi c surgeon referral - Please call patient to schedule an appointme nt. Thank you. 2024 025 [facility], [address], [place], [address], 01/16/2025 17:19:18 Procedures None recorded. Surgeries None recorded. Imaging None recorded. Medication Orders Folplex 2.2 mg-25 mg-0.5 mg tablet 2024 [facility]79842, [address] [facility], [place], [place], [id number], 01/02/2025 16:45:18 atorvasta tin 40 mg tablet 2024 [facility] #85164, [address] [place], [place], [id number], 01/02/2025 16:45:22 trazodone 50 mg tablet 2024 [email or web address] [facility] #47446, [address] [place], [place], [id number], 01/02/2025 16:45:49 docusate sodium 100 mg capsule 2024 [facility] #81955, [address] [place], [place], [id number], 01/02/2025 16:45:20 polyethyl jeffery glycol 3350 17 gram/dose oral powder 2024 [email or web address] [facility] #78543, [address] [place], [place], [id number], 01/16/2025 15:12:43 ergocalci ferol (vitamin D2) 1,250 mcg (50,000 unit) capsule 2024 [facility] #65558, [address] [place], [place], [id number], 01/02/2025 16:45:21 pantopraz ole 40 mg tablet,de layed release 2024 [facility] #89918, [address] [place], [place], [id number], 01/02/2025 16:45:19 citalopra m 40 mg tablet 2024 025 ZULEIKA [facility] #22037, [address] [facility], [place], [place], [id number], 01/02/2025 16:45:19 Patient TargetsNo targets recorded. Patient Instructions Encounter Date Encounter Id Patient Instructions Last Modified By Organization Details Last Modified Time 01/02/2025 [id number] Starting a Weight-Loss Plan: Care Instructions Not available 01/02/2025 16:45:10 Reason for Referral Orthopedic Surgeon Referral for Chronic pain of left upper limb Please call patient to schedule an appointment. Thank you. Referring Physician: Cuauhtemoc Jasso, [facility] Medicine, Encounter Date: 01/02/2025 Results Created Date Observation Date Name Description [...] this assay . Guide lines recom mend scree shandra again 3 years after a negat luciano [...] adult s 45 years or older at [facility] risk for CRC. A posit luciano (abno rmal) resul t shoul d be follo wed by a colon oscop y. Patie nts with a negat luciano (norm al) resul t shoul d scree n again in 3 years . [...] up to 85% of CRC s. A 18, 1-pat ient clini jillian trial found the Colog uard Plus test effec tivel y detec ts CRC and preca ncer. The study found the test was 95% sensi tive for CRC, 43% sensi tive for advan clemente preca ncer, and had a 91% speci ficit y ([facility] guard Plus Clini moris Kurtz ure. Exact Scien samara [employer] ratio n. [place], [place] Visit [email or web address].[email or web address] /abou t/acc uracy -sens itivi ty-sp [facility] for more test infor mikayla n, refer jorge l hicks ngs, and preca ution s. Not Available [facility] [address], [place], [address], 02/06/2025 16:31:43 12/27/19 25 12/26/2024 [employer] us, 2 or more view No observ ation record ed. [email or web address] [facility] [address], [place], [address], 01/02/2025 16:41:36 01/06/20 25 01/03/2025 XR, shoul nav, 2 or more view No observ ation record ed. [address], [place], [address], 03/30/2025 09:55:51 03/30/2003/30/2025 XR, lumbo sacra l spine , 4 or more view No observ ation record ed. [address], [place], [address], 03/30/2025 16:06:41 03/30/20 25 03/30/2025 XR, lumbo sacra l spine , 4 or more view No observ ation record ed. [address], [place], [address], 03/30/2025 16:57:23 Result Notes None recorded. Problems Name Problem SNOMED Code Status Onset Date Resolution Date Notes Provider Name and Address Organization Details Recorded Time Impacted cerumen of bilateral ears 6012892026255 108 Active 2020 Not Available [facility] 3 23:37:53 Anxiety disorder 288402519 Active 2020 Not Available [facility] 3 23:37:53 Depressive disorder 77995567 Active 2020 Not Available [facility] 3 23:37:53 Hypertensi ve disorder 88840948 Active 2020 Not Available [facility] 3 23:37:53 Obesity 830197262 Active 2020 Not Available [facility] 3 23:37:53 Congestive heart failure 91354414 Active 2020 Not Available [facility] 3 23:37:53 Coronary atheroscle rosis 357345086 Active 2020 Not Available [facility] 3 23:37:54 Fatigue 77908627 Active 2020 Not Available [facility] 3 23:37:54 Fibromyalg ia 165174643 Active 2020 Not Available [facility] 3 23:37:53 Hyperlipid emia 85722063 Active 2020 Not Available [facility] 3 23:37:54 Folliculit is 24923994 Active 2021 Not Available [facility] 3 23:37:53 Screening for malignant neoplasm of colon Active 2021 Not Available [facility] 3 23:37:53 Active immunizati on Active 2021 Not Available [facility] 3 23:37:53 Seasonal allergic rhinitis 100599082 Active 2021 Not Available [facility] 3 23:37:53 Arthritis 8094547 Active 2021 Not Available [facility] 3 23:37:53 Heart disease 44713785 Active 2021 Not Available [facility] 3 23:37:54 Closed fracture of fifth metatarsal bone 87431244 Active 2021 Not Available [facility] 3 23:37:54 Acquired right hallux rigidus 4843843059557 00 Active 2022 Aashish Chiang [employer]PK[employer] [address], [address], [place], [address] , [facility] [employer] [facility] 3 17:52:59 Chronic insomnia 706194214 Active 2022 Cuauhtemoc Jasso MD [address], [address], [place], [address] , [facility] [employer] [facility] 3 17:20:06 Chronic hypokalemi a 40227297 Active 2022 Cuauhtemoc Jasso MD [address], [address], [place], [address] , [facility] [employer] [facility] [employer] [facility] 3 17:30:10 Impacted cerumen in right ear 6914313249099 103 Active 2022 Cuauhtemoc Jasso MD [address], [address], [place], [address] , [place] [facility] 3 10:15:07 Osteopenia 758303702 Active 2022 Cuauhtemoc Jasso MD [address], [address], [place], [address] , [place] [facility] 3 16:29:04 Vitamin D deficiency 25811367 Active 2022 Cuauhtemoc Jasso MD [address], [address], [place], [address] , [place] [facility] 3 16:31:26 Diverticul itis 397230447 Active 2022 Cuauhtemoc Jasso MD [address], [address], [place], [address] , [place] [facility] 14:39:40 Exercise-i nduced asthma 54824141 Active 2022 Cuauhtemoc Jasso MD [address], [address], [place], [address] , [place] [facility] 3 15:48:33 Right upper quadrant pain 871824352 Active 2022 Cuauhtemoc Jasso MD [address], [address], [place], [address] , [place] [facility] 16:46:11 Nausea 337110014 Active 2022 Cauuhtemoc Jasso MD [address], [address], [place], [address] , [place] [facility] 16:47:11 Gallstone 442646277 Active 2022 Cuauhtemoc Jasso MD [address], [address], [place], [address] , [place] [facility] [place] [facility] 3 15:31:56 Chronic idiopathic constipati on 45795411 Active 2022 Cuauhtemoc Jasso MD [address], [address], [place], [address] , [place] [facility] 3 15:33:18 Cholelithi asis without obstructio n 51111716 Active 2022 Nilay jacobsen MD [address], [place], [address] , [place] [facility] 3 13:47:53 Bronchitis 21349192 Active 2022 Cuauhtemoc Jasso MD [address], [address], [place], [address] , [place] [facility] 3 16:53:45 Cough 11710179 Active 2022 Cuauhtemoc Jasso MD [address], [address], [place], [address] , [place] [facility] 3 16:13:16 Gastroesop hageal reflux disease without esophagiti s 602047962 Active 2022 Cuauhtemoc Jasso MD [address], [address], [place], [address] , [place] [facility] 3 15:17:44 Acute non-ST segment elevation myocardial infarction 529016624 Active 2022 Cuauhtemoc Jasso MD [address], [address], [place], [address] , [place] [facility] 3 15:39:28 Acid reflux 907660235 Active 2023 NENO Gayle [address], [place], [address] , [place] [facility] 4 16:23:06 Keloid scar 58304925 Active 2023 NENO Gayle [address], [place], [address] , [place] [facility] 4 16:30:20 Diverticul itis of colon 070638045 Active 2023 Cuauhtemoc Jasso MD [address], [place], [address] , [place] [facility] 4 09:22:23 COVID-19 721090143 Active 2023 Cuauhtemoc Jasso MD [address], [place], [address] , [place] [facility] 4 16:28:55 Dyspnea on exertion 44697275 Active 2023 Cuauhtemoc Jasso MD [address], [address], [place], [address] , [place] [facility] 4 14:52:11 Recurrent falls 574886461 Active 2024 Cuauhtemoc Jasso MD [address], [address], [place], [address] , [place] [facility] 5 14:39:17 Pain in left arm 151789364 Active 2024 Cuauhtemoc Jasso MD [address], [address], [place], [address] , [place] [facility] 5 14:39:35 Chronic pain of left upper limb 8270661508823 9103 Active 2024 Cuauhtemoc Jasso MD [address], [place], [address] , [place] [facility] 5 09:49:06 Pain of left shoulder joint 2726183750121 9109 Active 2024 Park Crow null, [place] [facility] 5 15:17:32 Pain of left shoulder region Active 2024 ALVAREZ Trinidad, [place] [facility] 5 14:30:30 Chronic low back pain 665466091 Active 2024 Cuauhtemoc Jasso MD [address], [place], [address] , [place] [facility] 5 10:01:23 Problem Notes None recorded. Procedures Surgical History Date Name Laterality Status Provider Name and Address Organization Details Recorded Time 08/10/19 24 cholecystectomy completed Jackeline Hernandez RN [facility] Private [facility] 10/19/2023 16:00:46 12/03/19 23 Ear Irrigation completed Cuauhtemoc Jasso MD [address] [facility] [facility] [address], [place], [address], [facility] 12/02/2022 16:16:55 Knee arthroscopy/surger y completed Not Available [facility] 07/09/2022 23:36:37 Cardiac Stent Placement completed Not Available [facility] 07/09/2022 23:36:37 Breast augmentation w/implt completed Not Available [facility] 07/09/2022 23:36:37 tonsillectomy completed Not Available [facility] 07/09/2022 23:36:37 Imaging Results None recorded. Procedure Notes None recorded. Medical Equipment None Reported. Allergies Allergen ID Allergen Name Allergen Category Reaction Reaction Severity Criticality Documentation Date Start Date Code Code System Note Provider Name and Address Organization Details Recorded Time 77901 Flagyl medicatio n Not available Not available Not available 07/09/202224216 6 RxNorm Not Available [facility] 3 23:39:37 66112 Levaquin medicatio n Not available Not available Not available 03/08/2024 09773 2 RxNorm Mulu Coto RN [facility], [facility] Private [facility] 4 14:13:06 99468 levofloxa john medicatio n Not available Not available Not available 03/27/2025 02169 RxNorm Not Available [employer] - prod 5 05:34:48 92080 metronida zole medicatio n Not available Not available Not available 03/27/2025 6922 RxNorm Not Available [employer] - prod 5 05:34:48 Medications [...] propionate 50 mcg/actuati on nasal spray,suspe nsion Leonard 2 sprays every day by intranasa l [...] and Address Organization Details Last Updated DateTime 5 160.02 cm 33.9 kg/m2 71271.9 4 g 97.6 [degF] 96 % 72 /min 120/70 mm[Hg] Briana Hodge RN [place] [facility] [place] [facility] 16:36:43 Social History Question Answer Notes LastModified by Organization Details LastModified Time Tobacco Smoking Status Never Smoker Not Available [employer] 07/09/2022 23:36:28 Do You Have An Advance Directive? No MIGRATION.[id number] Information not available 07/09/2022 Do You Wear A Helmet When Biking? No MIGRATION.22990616 Information not available 07/09/2022 Are You Blind Or Do You Have Difficulty Seeing? No MIGRATION.22990616 Information not available 07/09/2022 Is Blood Transfusion Acceptable In An Emergency? Yes Information not available 11/20/2022 What Is Your Level Of Caffeine Consumption? Heavy 1 Cup Of Coffee/day Pitcher Of Sweet Tea/day 2 Or 3 (16 Oz)bottles Of Coke Or Pepsi/day Information not available 03/30/2025 What Is Your Code Status? Full Code Information not available 11/20/2022 In The 14 Days Before Symptom Onset, Have You Had Close Contact With A Laboratory-confi rmed COVID-19 While That Case Was Ill? No MIGRATION.0301 873563 Information not available 07/09/2022 In The 14 Days Before Symptom Onset, Have You Had Close Contact With A Person Who Is Under Investigation For COVID-19 While That Person Was Ill? No MIGRATION.0301 993567 Information not available 07/09/2022 Are You Deaf Or Do You Have Serious Difficulty Hearing? No MIGRATION.0301 354893 Information not available 07/09/2022 What Type Of Diet Are You Following? REGULAR MIGRATION.0301 850439 Information not available 07/09/2022 Have There Been Any Changes To Your Family Or Social Situation? Yes Passed Back In Mar. MIGRATION.0301 797203 Information not available 07/09/2022 Are There Any Guns Present In Your Home? No MIGRATION.0301 617002 Information not available 07/09/2022 Do You Use Insect Repellent Routinely? No MIGRATION.0301 846083 Information not available 07/09/2022 Where Do You Live? [facility] MIGRATION.0301 362065 Information not available 07/09/2022 Do You Have A Medical Power Of Communications Tower Technician? No Discuss With Children Already MIGRATION.0301 476265 Information not available 07/09/2022 Have You Ever Been Counseled For Unhealthy Alcohol Use? No MIGRATION.0301 928771 Information not available 07/09/2022 Do You Have Any Pets? Yes MIGRATION.0301 739188 Information not available 07/09/2022 What Is Your Relationship Status? MIGRATION.0301 988158 Information not available 07/09/2022 Do You Use Your Seat Belt Or Car Seat Routinely? Yes MIGRATION.0301 903010 Information not available 07/09/2022 Do You Have Smoke And Carbon Monoxide Detectors In Your Home? Yes MIGRATION.0301 970842 Information not available 07/09/2022 Are You Passively Exposed To Smoke? No MIGRATION.0301 930406 Information not available 07/09/2022 Are There Any Smokers In Your House? No MIGRATION.0301 519233 Information not available 07/09/2022 Do You Participate In Social Media? No MIGRATION.0301 840103 Information not available 07/09/2022 Do You Use Sunscreen Routinely? Yes MIGRATION.0301 246576 Information not available 07/09/2022 Has Tobacco Cessation Counseling Been Provided? No MIGRATION.0301 020896 Information not available 07/09/2022 Have You Recently Traveled Abroad? No MIGRATION.0301 963414 Information not available 07/09/2022 Do You Have Difficulty Walking Or Climbing Stairs? No MIGRATION.0301 378797 Information not available 07/09/2022 Are You Currently In School? No MIGRATION.0301 798232 Information not available 07/09/2022 Do You Have Any Dietary Restrictions? No MIGRATION.0301 977588 Information not available 07/09/2022 Sex: Unknown Functional Status Question Answer Note LastModified by [employer] ion Details LastModified Time Do you use any illicit or recreational drugs? No MIGRATION.4700979 026 Information not available 07/09/2022 Do you or have you ever used any other forms of tobacco or nicotine? No MIGRATION.5378387 026 Information not available 07/09/2022 What is your level of alcohol consumption? Occasional MIGRATION.7321131 026 Information not available 07/09/2022 Are you currently employed? No Information not available 11/20/2022 Do you have transportation difficulties? No MIGRATION.1461600 026 Information not available 07/09/2022 Are you able to walk independently without assistance or assistive devices? [employer]OREST MIGRATION.4160974 026 Information not available 07/09/2022 Do you have difficulty doing errands alone? No MIGRATION.6662917 026 Information not available 07/09/2022 Are you able to care for yourself independently? No MIGRATION.2083478 026 Information not available 07/09/2022 Do you have difficulty dressing, bathing, grooming, or toileting? No MIGRATION.8654473 026 Information not available 07/09/2022 What is your exercise level? None Information not available 11/20/2022 Mental Status Question Answer Note LastModified by Organizat ion Details LastModified Time Do you feel stressed (tense, restless, nervous, or anxious, or unable to sleep at night)? PW3006-4 Information not available 11/20/2022 Do you have difficulty concentrating, remembering or making decisions? No MIGRATION.53260975 26 Information not available 07/09/2022 Family History Relationship Description Onset Age of this Age Resolved Age Notes LastModified by Organization Details LastModified Time Mother Family history of stroke MIGRATION.746 0962058 Not available 07/09/2022 23:36:39 Mother Hypertensive disorder MIGRATION.041 0368826 Not available 07/09/2022 23:36:39 Mother Diabetes mellitus MIGRATION.348 5807155 Not available 07/09/2022 23:36:39 Mother Arthritis MIGRATION.085 3870899 Not available 07/09/2022 23:36:39 Mother Heart disease MIGRATION.713 9735789 Not available 07/09/2022 23:36:39 Father Malignant neoplasm of lung MIGRATION.498 8490494 Not available 07/09/2022 23:36:39 Father Arthritis MIGRATION.500 0072868 Not available 07/09/2022 23:36:40 Brother Diabetes mellitus MIGRATION.986 6195024 Not available 07/09/2022 23:36:40 Brother Hypertensive disorder MIGRATION.294 0326627 Not available 07/09/2022 23:36:40 Brother Heart disease MIGRATION.507 6909539 Not available 07/09/2022 23:36:40 Medical History Condition Response CANCER: SPECIFY Y ARTHRITIS Y USE OF BLOOD THINNERS Y Gall Stones Y FIBROMYALGIA Y SKIN PROBLEMS Y HEART DISEASE/HEART PROBLEMS Y OSTEOPOROSIS Y DEPRESSION (INCLUDING POST ) Y HEARTBURN / REFLUX Y INSOMNIA Y HYPERTENSION Y HIGH CHOLESTEROL / HYPERLIPIDEMIA Y Gynecological History Statement/Question Response Abnormal Pap N If Post Menopausal, Age at Menopause 52 Date of Last Pap Smear Date of Last Colonoscopy Most Recent Mammogram Most Recent Bone Density Obstetrics History GPAL:G 0 P 0 0 0 0 Immunizations Vaccine Type Date Status Note Provider Nam e and Address Organization Details Recorded Time Influenza, high-dose, trivalent, PF completed Briana Hodge RN null, [place] [facility] [place] [facility] 03/30/2025 10:58:28 Tdap 1 completed Not Available [facility] 07/09/2022 23:39:34 Influenza, high-dose, quadrivalent, PF 1 completed Not Available [facility] 07/09/2022 23:39:34 Influenza, high-dose, quadrivalent, PF 2 completed Not Available [facility] 07/09/2022 23:39:34 Influenza, high-dose, quadrivalent, PF 3 completed Noman Landon null, [facility] [employer] [facility] 01/29/2023 09:40:02 Influenza, high-dose, trivalent, PF 4 completed Cuauhtemoc Jasso MD [address] [place] [address], [id number] [employer] [facility] [employer] [facility] 03/08/2024 14:54:13 Pneumococcal conjugate PCV20, polysaccharide ARQ317 conjugate, adjuvant, PF 4 completed Autumn Sanders RN null, [facility] [employer] [facility] 03/23/2024 11:59:47 pneumococcal polysaccharide PPV23 3 completed Jackeline Hernandez RN null, [place] [employer] [facility] [employer] [facility] 11/20/2022 11:16:38 Past Encounters Encounter ID Performer Location Encounter Start Date Encounter Closed Date Diagnosis/Indication Diagnosis SNOMED-CT Code Diagnosis ICD10 Code Diagnosis IMO Codes Diagnosis Note [id number] Cuauhtemoc Jasso MD [facility] [address] [address] 12/06/2024 14:16:20 12/06/2024 14:49:18 Gastroesophageal reflux disease without esophagitis 787494344 K21.9 Chronic id iopathic constipation 98567526 K59.04 Hyperlipidemia 08926698 E78.5 Vitamin D deficiency 347 25328 E55.9 Fibromyalgia 281597521 M 79.7 Congestive heart failure 74150289 I50.9 Acute non- ST segment elevation myocardial infarction 463476932 I21.4 History - in 03/2023 Coronary atherosclerosis 718857347 I25.10 Obesity 036515547 E66.9 Depressive disorder 3548 9007 F32.9 Chronic insomnia 9352436 04 F51.04 Cough 54507487 R05.9 Recurrent falls 11127309 2 R29.6 03520 Pain in left arm 6059623 00 M79.602 758060 Chronic pa in of left upper limb 2225940601 0959372 M25.512 G89.29 007604 Ophthalmic examination and evaluation 30260522 Z01.00 Screening mammography 24 656314 Z12.31 [id number] Cuauhtemoc Jasso MD [facility] [address] [address] 01/02/2025 16:22:55 01/02/2025 16:52:19 Hyperlipidemia 21393785 E78.5 Gastroesop hageal reflux disease without esophagitis 388613571 K21.9 Chronic id iopathic constipation 25062695 K59.04 Vitamin D deficiency 347 50967 E55.9 Fibromyalgia 869618648 M 79.7 Congestive heart failure 58727454 I50.9 Acute non- ST segment elevation myocardial infarction 429524591 I21.4 History - in 03/2023 Coronary atherosclerosis 884038286 I25.10 Obesity 887360813 E66.9 Depressive disorder 3548 9007 F32.9 Chronic insomnia 3889397 04 F51.04 Recurrent falls 61999954 2 R29.6 69710 Pain in left arm 8514098 00 M79.602 718081 Chronic pa in of left upper limb 5242573039 3952751 M25.512 G89.29 258158 Screening for malignant neoplasm of colon 273540655 Z12.11 Health Concerns Section Related Observation LastModified by Organization Detai ls LastModified Time None Recorded Concern Status LastModified by Organization Details LastModified Time None Recorded Payers Encounter Date Sequence Insurance Name Policy Number Policy Ramos Covered Member ID Ramos Member ID Guarantor Name 01/02/2025 1 [place] Daisy Rodriguez [id number] Daisy Rodriguez 01/02/2025 2 [place] [address] Michael [id number] Daisy Rodriguez Notes Date Note Type Note Provider Name and Address Organization Details Recorded Time 01/02/2025 text/html Pt is here for f/u on her x-rays and pain. Feeling overall better than last visit. Denies any problem with meds. C/o s/p fall couple months ago when she was mowing [place]. C/o pain over her Lt arm since than and she has limited ROM due to that. No head trauma/LOC.Dat g well with his mood & anxiety and current meds. Denies any mood swings/SI/HI.Pt is checking her BP at home and its good as per pt. Pt is f/u with Cardio for her CAD, CHF and HTN and is on meds by them. Pt sees them every 3-4 months. Cuauhtemoc Jasso MD [address] [facility], [facility] [address], [place], [address], [place] [facility] 01/02/2025 17:21:23 OBGyn Episode No OBEpisode recorded.
--- OUTSIDE RECORDS SUMMARY | 2025-03-30 17:34 | XMS_ITS | Continuity of Care Document ---
Author Organization [place] - [facility] [employer] [facility], [facility] [place] Address [address] [place] [address] Care Team Providers Care Nurse Tech Name Role Phone CUAUHTEMOC JASSO Primary Care Provider [phone] CUAUHTEMOC JASSO Referring Provider Assessment Encounter Date Assessment Date Assessment LastModified by Organization Details LastModified Time 03/27/2025 03/27/2025 69-year-old female presents for follow-up of her left shoulder. [...] in 6 weeks, or sooner as needed. [email or web address] Not available 03/29/2025 14:50:21 Plan of Treatment Reminders Order Date Submit Date Provider Last Modified By Organization Details Last Modified Time Details Appointments Physical/ Annual Wellness 30 2024 09:00A Kelsie Jasso MD Not available Not available Not available Follow Up 15 2024 11:00A Kelsie Jasso MD Not available Not available Not available Lab None recorded. Referral physical therapist referral - continuat ion of therapy for L shoulder 2024 025 [email or web address] [facility] [place] [facility], [address], [place], [address], 03/30/2025 09:55:51 Procedures None recorded. Surgeries None recorded. Imaging None recorded. Medication Orders None recorded. Patient TargetsNo targets recorded. Patient InstructionsNo instructions recorded. Reason for Referral Physical Therapist Referral for Pain of left shoulder region L shoulder continuation of therapy for L shoulder Referring Physician: Gabriel Lowe, Orthopedic Surgery, Encounter Date: 03/27/2025 Results Created Date Observation Date Name Description Value Unit Range Abnormal Flag Note LastModifiedBy Organization Detail LastModifiedTime 03/30/20 25 03/30/2025 XR, lumbo sacra l spine , 4 or more view No observ ation record ed. [address] [facility], [place], [address], 03/30/2025 16:06:41 03/30/2003/30/2025 XR, lumbo sacra l spine , 4 or more view No observ ation record ed. [address], [place], [address], 03/30/2025 16:57:23 Result Notes None recorded. Problems Name Problem SNOMED Code Status Onset Date Resolution Date Notes Provider Name and Address Organization Details Recorded Time Impacted cerumen of bilateral ears 2574002898339 108 Active 2020 Not Available [facility] 3 23:37:53 Anxiety disorder 543553607 Active 2020 Not Available [facility] 3 23:37:53 Depressive disorder 26485164 Active 2020 Not Available [facility] 3 23:37:53 Hypertensi ve disorder 95415128 Active 2020 Not Available [facility] 3 23:37:53 Obesity 508310354 Active 2020 Not Available [facility] 3 23:37:53 Congestive heart failure 39739187 Active 2020 Not Available [facility] 3 23:37:53 Coronary atheroscle rosis 021213321 Active 2020 Not Available [facility] 3 23:37:54 Fatigue 99069895 Active 2020 Not Available [facility] 3 23:37:54 Fibromyalg ia 888217117 Active 2020 Not Available [facility] 3 23:37:53 Hyperlipid emia 89604026 Active 2020 Not Available [facility] 3 23:37:54 Folliculit is 09289068 Active 2021 Not Available [facility] 3 23:37:53 Screening for malignant neoplasm of colon Active 2021 Not Available [facility] 3 23:37:53 Active immunizati on Active 2021 Not Available [facility] 3 23:37:53 Seasonal allergic rhinitis 383839489 Active 2021 Not Available [facility] 3 23:37:53 Arthritis 5168203 Active 2021 Not Available [facility] 3 23:37:53 Heart disease 27280871 Active 2021 Not Available [facility] 3 23:37:54 Closed fracture of fifth metatarsal bone 26729465 Active 2021 Not Available [facility] 3 23:37:54 Acquired right hallux rigidus 7755672373598 00 Active 2022 Aashish Chiang DPM [address] [facility], [place], [address] , [facility] [employer] [facility] 3 17:52:59 Chronic insomnia 581428321 Active 2022 Cuauhtemoc Jasso MD [address], [address], [place], [address] , [facility] [employer] [facility] 3 17:20:06 Chronic hypokalemi a 67018611 Active 2022 Cuauhtemoc Jasso MD [address], [address], [place], [address] , [facility] [employer] [facility] 3 17:30:10 Impacted cerumen in right ear 5286486994767 103 Active 2022 Cuauhtemoc Jasso MD [address], [address], [place], [address] , [place] [facility] 3 10:15:07 Osteopenia 552543850 Active 2022 Cuauhtemoc Jasso MD [address], [address], [place], [address] , [place] [facility] 3 16:29:04 Vitamin D deficiency 90204691 Active 2022 Cuauhtemoc Jasso MD [address], [address], [place], [address] , [place] [facility] 3 16:31:26 Diverticul itis 404700777 Active 2022 Cuauhtemoc Jasso MD [address], [address], [place], [address] , [place] [facility] 3 14:39:40 Exercise-i nduced asthma 48115012 Active 2022 Cuauhtemoc Jasso MD [address], [address], [place], [address] , [place] [facility] 3 15:48:33 Right upper quadrant pain 298516019 Active 2022 Cuauhtemoc Jasso MD [address], [address], [place], [address] , [place] [facility] 3 16:46:11 Nausea 646942625 Active 2022 Cuauhtemoc Jasso MD [address], [address], [place], [address] , [place] [facility] 3 16:47:11 Gallstone 516024573 Active 2022 Cuauhtemoc Jasso MD [address], [address], [place], [address] , [place] [facility] 3 15:31:56 Chronic idiopathic constipati on 09838345 Active 2022 Cuauhtemoc Jasso MD [address], [address], [place], [address] , [place] [facility] 3 15:33:18 Cholelithi asis without obstructio n 89365442 Active 2022 Nilay jacobsen MD [address], [address], [place], [address] , [place] [facility] 3 13:47:53 Bronchitis 34352280 Active 2022 Cuauhtemoc Jasso MD [address], [address], [place], [address] , [place] [facility] 3 16:53:45 Cough 85382783 Active 2022 Cuauhtemoc Jasso MD [address], [address], [place], [address] , [place] [facility] 3 16:13:16 Gastroesop hageal reflux disease without esophagiti s 286644820 Active 2022 Cuauhtemoc Jasso MD [address], [address], [place], [address] , [place] [facility] 3 15:17:44 Acute non-ST segment elevation myocardial infarction 252963415 Active 2022 Cuauhtemoc Jasso MD [address], [address], [place], [address] , [place] [facility] 3 15:39:28 Acid reflux 106053962 Active 2023 NENO Gayle [address], [address], [place], [address] , [place] [facility] 4 16:23:06 Keloid scar 14795179 Active 2023 NENO Gayle [address], [address], [place], [address] , [place] [facility] 4 16:30:20 Diverticul itis of colon 170475038 Active 2023 Cuauhtemoc Jasso MD [address], [address], [place], [address] , [place] [facility] 4 09:22:23 COVID-19 365096683 Active 2023 Cuauhtemoc Jasso MD [address], [address], [place], [address] , [place] [facility] 4 16:28:55 Dyspnea on exertion 71631994 Active 2023 Cuauhtemoc Jasso MD [address], [address], [place], [address] , [place] [facility] 4 14:52:11 Recurrent falls 618704958 Active 2024 Cuauhtemoc Jasso MD [address], [address], [place], [address] , [place] [facility] 5 14:39:17 Pain in left arm 979878246 Active 2024 Cuauhtemoc Jasso MD [address], [address], [place], [address] , [place] [employer] [facility] 5 14:39:35 Chronic pain of left upper limb 3286308615552 9103 Active 2024 Cuauhtemoc Jasso MD [address], [address], [place], [address] , [place] [facility] 5 09:49:06 Pain of left shoulder joint 2494703247167 9109 Active 2024 Park Mignon null, [place] [facility] 5 15:17:32 Pain of left shoulder region Active 2024 ALVAREZ Trinidad, [place] [facility] 5 14:30:30 Chronic low back pain 340078923 Active 2024 Cuauhtemoc Jasso MD [address], [address], [place], [address] , [place] [facility] 5 10:01:23 Problem Notes None recorded. Procedures Surgical History Date Name Laterality Status Provider Name and Address Organization Details Recorded Time 08/10/19 24 cholecystectomy completed Jackeline Hernandez RN [facility] [employer] 10/19/2023 16:00:46 12/03/19 23 Ear Irrigation completed Cuauhtemoc Jasso MD [address] [facility], [facility] [address], [place], [address], [facility] [employer] [facility] [employer] 12/02/2022 16:16:55 Knee arthroscopy/surger y completed Not Available [facility] 07/09/2022 23:36:37 Cardiac Stent Placement completed Not Available [facility] 07/09/2022 23:36:37 Breast augmentation w/implt completed Not Available [facility] 07/09/2022 23:36:37 tonsillectomy completed Not Available [facility] 07/09/2022 23:36:37 Imaging Results None recorded. Procedure Notes None recorded. Medical Equipment None Reported. Allergies Allergen ID Allergen Name Allergen Category Reaction Reaction Severity Criticality Documentation Date Start Date Code Code System Note Provider Name and Address Organization Details Recorded Time 21051 Flagyl medicatio n Not available Not available Not available 07/09/202249328 6 RxNorm Not Available [facility] 3 23:39:37 10773 Levaquin medicatio n Not available Not available Not available 03/08/2024 49342 2 RxNorm Mulu Coto RN [facility], [facility] [employer] [facility] 4 14:13:06 49737 levofloxa john medicatio n Not available Not available Not available 03/27/2025 99378 RxNorm Not Available [employer] [facility] 5 05:34:48 67411 metronida zole medicatio n Not available Not available Not available 03/27/2025 6922 RxNorm Not Available [employer] - [facility] 5 05:34:48 Medications [...] propionate 50 mcg/actuati on nasal spray,suspe nsion [place] 2 sprays every day by intranasa l [...] Updated DateTime 03/27/2025 160.02 cm 33.5 kg/m2 68991.96 g 2 ALVAREZ Trinidad [place] [facility] 03/27/2025 14:29:56 Social History Question Answer Notes LastModified by Organization Details LastModified Time Tobacco Smoking Status Never Smoker Not Available [facility] 07/09/2022 23:36:28 Do You Have An Advance Directive? No MIGRATION.[id number] Information not available 07/09/2022 Do You Wear A Helmet When Biking? No MIGRATION.030 425368 Information not available 07/09/2022 Are You Blind Or Do You Have Difficulty Seeing? No MIGRATION.030 162685 Information not available 07/09/2022 Is Blood Transfusion [...] While That Case Was Ill? No MIGRATION.0301 671558 Information not available 07/09/2022 In The 14 Days Before Symptom Onset, Have You Had Close Contact With A Person Who Is Under Investigation For COVID-19 While That Person Was Ill? No MIGRATION.0301 192294 Information not available 07/09/2022 Are You Deaf Or Do You Have Serious Difficulty Hearing? No MIGRATION.0301 981773 Information not available 07/09/2022 What Type Of Diet Are You Following? REGULAR MIGRATION.0301 048984 Information not available 07/09/2022 Have There Been Any Changes To Your Family Or Social Situation? Yes Passed Back In Mar. MIGRATION.0301 985493 Information not available 07/09/2022 Are There Any Guns Present In Your Home? No MIGRATION.0301 491058 Information not available 07/09/2022 Do You Use Insect Repellent Routinely? No MIGRATION.0301 636468 Information not available 07/09/2022 Where Do You Live? [facility] MIGRATION.0301 698649 Information not available 07/09/2022 Do You Have A Medical Power Of Library Information Technician? No Discuss With Children Already MIGRATION.0301 140576 Information not available 07/09/2022 Have You Ever Been Counseled For Unhealthy Alcohol Use? No MIGRATION.0301 391121 Information not available 07/09/2022 Do You Have Any Pets? Yes MIGRATION.0301 051607 Information not available 07/09/2022 What Is Your Relationship Status? MIGRATION.0301 076507 Information not available 07/09/2022 Do You Use Your Seat Belt Or Car Seat Routinely? Yes MIGRATION.0301 497182 Information not available 07/09/2022 Do You Have Smoke And Carbon Monoxide Detectors In Your Home? Yes MIGRATION.0301 842688 Information not available 07/09/2022 Are You Passively Exposed To Smoke? No MIGRATION.0301 798066 Information not available 07/09/2022 Are There Any Smokers In Your House? No MIGRATION.0301 724613 Information not available 07/09/2022 Do You Participate In Social Media? No MIGRATION.0301 751341 Information not available 07/09/2022 Do You Use Sunscreen Routinely? Yes MIGRATION.0301 530549 Information not available 07/09/2022 Has Tobacco Cessation Counseling Been Provided? No MIGRATION.0301 805038 Information not available 07/09/2022 Have You Recently Traveled Abroad? No MIGRATION.0301 727903 Information not available 07/09/2022 Do You Have Difficulty Walking Or Climbing Stairs? No MIGRATION.0301 143484 Information not available 07/09/2022 Are You Currently In School? No MIGRATION.0301 734395 Information not available 07/09/2022 Do You Have Any Dietary Restrictions? No MIGRATION.0301 046867 Information not available 07/09/2022 Sex: Unknown Functional Status Question Answer Note LastModified by [employer] Details LastModified Time Do you use any illicit or recreational drugs? No MIGRATION.5833791 026 Information not available 07/09/2022 Do you or have you ever used any other forms of tobacco or nicotine? No MIGRATION.1756559 026 Information not available 07/09/2022 What is your level of alcohol consumption? Occasional MIGRATION.3744356 026 Information not available 07/09/2022 Are you currently employed? No Information not available 11/20/2022 Do you have transportation difficulties? No MIGRATION.3594283 026 Information not available 07/09/2022 Are you able to walk independently without assistance or assistive devices? [employer] MIGRATION.4376615 026 Information not available 07/09/2022 Do you have difficulty doing errands alone? No MIGRATION.5257134 026 Information not available 07/09/2022 Are you able to care for yourself independently? No MIGRATION.9615082 026 Information not available 07/09/2022 Do you have difficulty dressing, bathing, grooming, or toileting? No MIGRATION.0449219 026 Information not available 07/09/2022 What is your exercise level? None Information not available 11/20/2022 Mental Status Question Answer Note LastModified by Organizat ion Details LastModified Time Do you feel stressed (tense, restless, nervous, or anxious, or unable to sleep at night)? [id number] Information not available 11/20/2022 Do you have difficulty concentrating, remembering or making decisions? No MIGRATION.74554000 26 Information not available 07/09/2022 Family History Relationship Description Onset Age of this Age Resolved Age Notes LastModified by Organization Details LastModified Time Mother Family history of stroke MIGRATION.387 [id number] Not available 07/09/2022 23:36:39 Mother Hypertensive disorder MIGRATION.714 0220976 Not available 07/09/2022 23:36:39 Mother Diabetes mellitus MIGRATION.320 1783336 Not available 07/09/2022 23:36:39 Mother Arthritis MIGRATION.565 9614461 Not available 07/09/2022 23:36:39 Mother Heart disease MIGRATION.180 6059371 Not available 07/09/2022 23:36:39 Father Malignant neoplasm of lung MIGRATION.625 7576825 Not available 07/09/2022 23:36:39 Father Arthritis MIGRATION.213 0121026 Not available 07/09/2022 23:36:40 Brother Diabetes mellitus MIGRATION.406 9936384 Not available 07/09/2022 23:36:40 Brother Hypertensive disorder MIGRATION.291 3139477 Not available 07/09/2022 23:36:40 Brother Heart disease MIGRATION.759 8537053 Not available 07/09/2022 23:36:40 Medical History Condition Response CANCER: SPECIFY Y ARTHRITIS Y USE OF BLOOD THINNERS Y Gall Stones Y FIBROMYALGIA Y HEART DISEASE/HEART PROBLEMS Y SKIN PROBLEMS Y OSTEOPOROSIS Y DEPRESSION (INCLUDING POST [...] Time Influenza, high-dose, trivalent, PF 5 completed Briana Hodge RN null, [place] [facility] 03/30/2025 10:58:28 Tdap 1 completed Not Available [employer] 07/09/2022 23:39:34 Influenza, high-dose, quadrivalent, PF 1 completed Not Available [facility] 07/09/2022 23:39:34 Influenza, high-dose, quadrivalent, PF 2 completed Not Available [facility] 07/09/2022 23:39:34 Influenza, high-dose, quadrivalent, PF 3 completed Noman Landon null, [facility] [employer] [facility] 01/29/2023 09:40:02 Influenza, high-dose, trivalent, PF 4 completed Cuauhtemoc Jasso MD [address] [place] [address], [address], [facility] [employer] [facility] 03/08/2024 14:54:13 Pneumococcal conjugate PCV20, polysaccharide HCH674 conjugate, adjuvant, PF 4 completed Autumn Sandesr RN null, [facility] [employer] [facility] 03/23/2024 11:59:47 pneumococcal polysaccharide PPV23 3 completed Jackeline Hernandez RN null, [facility] [employer] [facility] 11/20/2022 11:16:38 Past Encounters Encounter ID Performer Location Encounter Start Date Encounter Closed Date Diagnosis/Indication Diagnosis SNOMED-CT Code Diagnosis ICD10 Code Diagnosis IMO Codes Diagnosis Note [id number] Gabriel Lowe MD [facility] [address] [place] [address] 03/27/2025 14:26:49 03/27/2025 14:48:26 Pain of left shoulder region 6479366003 M25.512 81796528 Chronic pa in of left upper limb 9098938312 8740998 M79.602 G89.29 [id number] Health Concerns Section Related Observation LastModified by Organization Detai ls LastModified Time None Recorded Concern Status LastModified by Organization Details LastModified Time None Recorded Payers Encounter Date Sequence Insurance Name Policy Number Policy Ramos Covered Member ID Ramos Member ID Guarantor Name 03/27/2025 1 [place] Daisy Rodriguez [id number] Daisy Rodriguez 03/27/2025 2 [place] [address] [id number] Daisy Rodriguez OBGyn Episode No OBEpisode recorded.
--- OUTSIDE RECORDS SUMMARY | 2025-03-30 17:34 | XMS_ITS | Continuity of Care Document ---
Author Organization [place] - [facility], [facility] David Address [address] [place] [address] Care Team Providers Care Guard Chief Name Role Phone CUAUHTEMOC JASSO Primary Care Provider [phone] CUAUHTEMOC JASSO Referring Provider Assessment Encounter Date Assessment Date Assessment LastModified by Organization Details LastModified Time 03/30/2025 03/30/2025 69 yo F with - [...] per schedule. Cont f/u with Cardio at [place] as per schedule. Offered to refer to [...] in 3 weeks. Annual labs in 04/05. Not available 03/30/2025 10:14:09 Plan of Treatment Reminders Order Date Submit Date Provider Last Modified By Organization Details Last Modified Time Details Appointments Physical/ Annual Wellness 30 2024 09:00A Kelsie Jasso MD Not available Not available Not available Follow Up 15 2024 11:00A Kelsie Jasso MD Not available Not available Not available Lab vitamin B12 + folate, serum or blood 2024 025 [email or web address] [facility] (Lab), [address] [place], [address], 03/30/2025 09:59:54 urinalysi s complete, reflex culture 2024 025 [email or web address] [facility] (Lab), [address] [place], [address], 03/30/2025 09:59:54 glycohemo globin, total, blood 2024 025 [email or web address] [facility] (Lab), [address] [place], [address], 03/30/2025 09:59:54 CMP, serum or plasma [address] (Lab), [address] [place], [address], 03/30/2025 09:59:54 CBC w/ auto diff [address] (Lab), [address] [place], [address], 03/30/2025 09:59:54 lipid panel, serum [address] (Lab), [address] [place], [address], 03/30/2025 09:59:54 TSH, serum or plasma [address] (Lab), [address] [place], [address], 03/30/2025 09:59:54 vitamin D, 25-hydrox y, total, serum [address] (Lab), [address] [place], [address], 03/30/2025 09:59:54 magnesium , serum or plasma [address] (Lab), [address] [place], [address], 03/30/2025 09:59:54 Referral None recorded. Procedures None recorded. Surgeries None recorded. Imaging XR, lumbosacr al spine, 4 or more view 2024 [facility], [address], [place], [address], 03/30/2025 16:01:46 MAMMO, screening , bilateral [address] [facility], [address] [facility] [address], [place], [address], 03/30/2025 10:15:47 DEXA [address], [address], [place], [address], 03/30/2025 10:15:47 Medication Orders Folplex 2.2 mg-25 mg-0.5 mg tablet 2024 [facility] #[id number], [address] [facility], [place], [place], [id number], 03/30/2025 09:58:18 Contrave 8 mg-90 mg tablet,ex tended release 2024 Count includes the [facility], [address] [facility], [place], [place], [id number], 03/30/2025 16:13:06 citalopra m 40 mg tablet 2024 [facility] #54170, [address] [facility], [place], [place], [id number], 03/30/2025 09:58:26 atorvasta tin 40 mg tablet 2024 [facility] #12912, [address] [facility], [place], [place], [id number], 03/30/2025 09:58:26 trazodone 50 mg tablet 2024 [facility] #67013, [address] [facility], [place], [place], [id number], 03/30/2025 09:58:26 docusate sodium 100 mg capsule 2024 [facility] #80305, [address], [place], [place], [id number], 03/30/2025 09:58:25 polyethyl jeffery glycol 3350 17 gram/dose oral powder 2024 [facility] #90482, [address], [place], [place], [id number], 03/30/2025 09:58:19 ergocalci ferol (vitamin D2) 1,250 mcg (50,000 unit) capsule 2024 [facility] #95086, [address], [place], [place], [id number], 03/30/2025 09:58:25 pantopraz ole 40 mg tablet,de layed release 2024 [facility] #26293, [address], [place], [place], [id number], 03/30/2025 09:58:26 Patient TargetsNo targets recorded. Patient Instructions Encounter Date Encounter Id Patient Instructions Last Modified By Organization Details Last Modified Time 03/30/2025 [id number] Starting a Weight-Loss Plan: Care Instructions [email or web address] Not available 03/30/2025 09:58:12 Reason for Referral None Reported. Results Created Date Observation Date Name Description Value Unit Range Abnormal Flag Note LastModifiedBy Organization Detail LastModifiedTime 03/30/2003/30/2025 XR, lumbo sacra l spine , 4 or more view No observ ation record ed. [email or web address] [id number] [facility] [address], [place], [address], 03/30/2025 16:06:41 03/30/2003/30/2025 XR, lumbo sacra l spine , 4 or more view No observ ation record ed. [facility] [address], [place], [address], 03/30/2025 16:57:23 Result Notes None recorded. Problems Name Problem SNOMED Code Status Onset Date Resolution Date Notes Provider Name and Address Organization Details Recorded Time Impacted cerumen of bilateral ears 6409327376285 108 Active 2020 Not Available [employer] 3 23:37:53 Anxiety disorder 780515467 Active 2020 Not Available [employer] 3 23:37:53 Depressive disorder 40293266 Active 2020 Not Available [employer] 3 23:37:53 Hypertensi ve disorder 50104297 Active 2020 Not Available [employer] 3 23:37:53 Obesity 582949138 Active 2020 Not Available [employer] 3 23:37:53 Congestive heart failure 23621353 Active 2020 Not Available [employer] 3 23:37:53 Coronary atheroscle rosis 353728842 Active 2020 Not Available [employer] 3 23:37:54 Fatigue 24214226 Active 2020 Not Available [employer] 3 23:37:54 Fibromyalg ia 335414148 Active 2020 Not Available [employer] 3 23:37:53 Hyperlipid emia 67112919 Active 2020 Not Available [employer] 3 23:37:54 Folliculit is 66521534 Active 2021 Not Available [employer] 3 23:37:53 Screening for malignant neoplasm of colon Active 2021 Not Available [employer] 3 23:37:53 Active immunizati on Active 2021 Not Available [employer] 3 23:37:53 Seasonal allergic rhinitis 245284798 Active 2021 Not Available [employer] 3 23:37:53 Arthritis 6832460 Active 2021 Not Available [employer] 3 23:37:53 Heart disease 38839676 Active 2021 Not Available [employer] 3 23:37:54 Closed fracture of fifth metatarsal bone 38491990 Active 2021 Not Available [employer] 3 23:37:54 Acquired right hallux rigidus 5084948840763 00 Active 2022 Aashish Chiang DPM [address], [place], [address] , [employer] [facility] [email or web address] 3 17:52:59 Chronic insomnia 078440004 Active 2022 Cuauhtemoc Jasso MD [address], [address], [place], [address] , [employer] [facility] [email or web address] 3 17:20:06 Chronic hypokalemi a 31618667 Active 2022 Cuauhtemoc Jasso MD [address], [address], [place], [address] , [employer] [facility] [employer] [facility] 3 17:30:10 Impacted cerumen in right ear 4802694153876 103 Active 2022 Cuauhtemoc Jasso MD [address], [address], [place], [address] , [employer] [facility] 3 10:15:07 Osteopenia 088637001 Active 2022 Cuauhtemoc Jasso MD [address], [address], [place], [address] , [employer]ocation [facility] [employer] [facility] 3 16:29:04 Vitamin D deficiency 05036242 Active 2022 Cuauhtemoc Jasso MD [address], [address], [place], [address] , [employer] [facility] [employer] [facility] 3 16:31:26 Diverticul itis 437684161 Active 2022 Cuauhtemoc Jasso MD [address], [address], [place], [address] , [employer] [facility] [employer] [facility] 3 14:39:40 Exercise-i nduced asthma 81068323 Active 2022 Cuauhtemoc Jasso MD [address], [address], [place], [address] , [place] [facility] 3 15:48:33 Right upper quadrant pain 030886092 Active 2022 Cuauhtemoc Jasso MD [address], [address], [place], [address] , [place] [facility] 3 16:46:11 Nausea 425744314 Active 2022 Cuauhtemoc Jasso MD [address], [address], [place], [address] , [place] [facility] 3 16:47:11 Gallstone 339861724 Active 2022 Cuauhtemoc Jasso MD [address], [address], [place], [address] , [place] [facility] 3 15:31:56 Chronic idiopathic constipati on 85951963 Active 2022 Cuauhtemoc Jasso MD [address], [address], [place], [address] , [place] [facility] 3 15:33:18 Cholelithi asis without obstructio n 10822645 Active 2022 Nilay jacobsen MD [address], [address], [place], [address] , [place] [facility] 3 13:47:53 Bronchitis 39559485 Active 2022 Cuauhtemoc Jasso MD [address], [address], [place], [address] , [place] [facility] 3 16:53:45 Cough 85254089 Active 2022 Cuauhtemoc Jasso MD [address], [address], [place], [address] , [place] [facility] 3 16:13:16 Gastroesop hageal reflux disease without esophagiti s 717449767 Active 2022 Cuauhtemoc Jasso MD [address], [address], [place], [address] , [place] [facility] 3 15:17:44 Acute non-ST segment elevation myocardial infarction 650575025 Active 2022 Cuauhtemoc Jasso MD [address], [address], [place], [address] , [place] [facility] 3 15:39:28 Acid reflux 633100393 Active 2023 NENO Gayle [address], [address], [place], [address] , [place] [facility] 4 16:23:06 Keloid scar 42894237 Active 2023 NENO Gayle [address], [address], [place], [address] , [place] [facility] 4 16:30:20 Diverticul itis of colon 880054306 Active 2023 Cuauhtemoc Jasso MD [address], [address], [place], [address] , [place] [facility] 4 09:22:23 COVID-19 163110380 Active 2023 Cuauhtemoc Jasso MD [address], [address], [place], [address] , [place] [facility] 4 16:28:55 Dyspnea on exertion 31872734 Active 2023 Cuauhtemoc Jasso MD [address], [address], [place], [address] , [place] [facility] 4 14:52:11 Recurrent falls 024997834 Active 2024 Cuauhtemoc Jasso MD [address], [address], [place], [address] , [place] [facility] 5 14:39:17 Pain in left arm 002890481 Active 2024 Cuauhtemoc Jasso MD [address], [address], [place], [address] , [facility] [employer] [facility] 5 14:39:35 Chronic pain of left upper limb 5060590609521 9103 Active 2024 Cuauhtemoc Jasso MD [address], [place], [address] , [facility] [employer] [facility] 5 09:49:06 Pain of left shoulder joint 1674482138074 9109 Active 2024 Park Crow null, [facility] [employer] [facility] 5 15:17:32 Pain of left shoulder region Active 2024 Stacy Forrester Gwen null, [facility] [employer] [facility] 5 14:30:30 Chronic low back pain 551391739 Active 2024 Cuauhtemoc Jasso MD [address], [place], [address] , [facility] [employer] [facility] 5 10:01:23 Problem Notes None recorded. Procedures Surgical History Date Name Laterality Status Provider Name and Address Organization Details Recorded Time 08/10/19 24 cholecystectomy completed Jackeline Hernandez RN [facility] [employer] [facility] 10/19/2023 16:00:46 12/03/19 23 Ear Irrigation completed Cuauhtemoc Jasso MD [address], [place], [address], [facility] [employer] [facility] 12/02/2022 16:16:55 Knee arthroscopy/surger y completed Not Available [facility] 07/09/2022 23:36:37 Cardiac Stent Placement completed Not Available [facility] 07/09/2022 23:36:37 Breast augmentation w/implt completed Not Available [facility] 07/09/2022 23:36:37 tonsillectomy completed Not Available [facility] 07/09/2022 23:36:37 Imaging Results None recorded. Procedure Notes None recorded. Medical Equipment None Reported. Allergies Allergen ID Allergen Name Allergen Category Reaction Reaction Severity Criticality Documentation Date Start Date Code Code System Note Provider Name and Address Organization Details Recorded Time 68319 Flagyl medicatio n Not available Not available Not available 07/09/202280374 6 RxNorm Not Available [facility] 3 23:39:37 71577 Levaquin medicatio n Not available Not available Not available 03/08/2024 40979 2 RxNorm Mulu Coto RN null, [place] - [facility] [employer] 4 14:13:06 69629 levofloxa john medicatio n Not available Not available Not available 03/27/2025 85662 RxNorm Not Available [employer] - prod 5 05:34:48 45057 metronida zole medicatio n Not available Not available Not available 03/27/2025 6922 RxNorm Not Available [facility] - prod 5 05:34:48 Medications [...] propionate 50 mcg/actuati on nasal spray,suspe nsion [place] 2 sprays every day by intranasa l [...] Details Last Updated DateTime 5 160.02 cm 35.1 kg/m2 30013.6 4 g 96.9 [degF] 97 % 62 /min 120/74 mm[Hg] Briana Hodge RN [place] [employer] 5 09:52:25 Social History Question Answer Notes LastModified by Organization Details LastModified Time Tobacco Smoking Status Never Smoker Not Available [facility] 07/09/2022 23:36:28 Do You Have An Advance Directive? No MIGRATION.030 884524 Information not available 07/09/2022 Do You Wear A Helmet When Biking? No MIGRATION.030 468393 Information not available 07/09/2022 Are You Blind Or Do You Have Difficulty Seeing? No MIGRATION.030 071549 Information not available 07/09/2022 Is Blood Transfusion Acceptable In An Emergency? Yes Information not available 11/20/2022 What Is Your Level Of Caffeine Consumption? Heavy 1 Cup Of Coffee/day Pitcher Of Sweet Tea/day 2 Or 3 (16 Oz)bottles Of Coke Or Pepsi/day [email or web address] Information not available 03/30/2025 What Is Your Code Status? Full Code Information not available 11/20/2022 In The 14 Days Before Symptom Onset, Have You Had Close Contact With A Laboratory-confi rmed COVID-19 While That Case Was Ill? No MIGRATION.030 222625 Information not available 07/09/2022 In The 14 Days Before Symptom Onset, Have You Had Close Contact With A Person Who Is Under Investigation For COVID-19 While That Person Was Ill? No MIGRATION.030 826182 Information not available 07/09/2022 Are You Deaf Or Do You Have Serious Difficulty Hearing? No MIGRATION.030 858781 Information not available 07/09/2022 What Type Of Diet Are You Following? REGULAR MIGRATION.030 648546 Information not available 07/09/2022 Have There Been Any Changes To Your Family Or Social Situation? Yes Passed Back In Mar. MIGRATION.0301 470151 Information not available 07/09/2022 Are There Any Guns Present In Your Home? No MIGRATION.0301 821477 Information not available 07/09/2022 Do You Use Insect Repellent Routinely? No MIGRATION.0301 442204 Information not available 07/09/2022 Where Do You Live? [facility] MIGRATION.0301 254137 Information not available 07/09/2022 Do You Have A Medical Power Of Supervisor Electronic Coils? No Discuss With Children Already MIGRATION.0301 957319 Information not available 07/09/2022 Have You Ever Been Counseled For Unhealthy Alcohol Use? No MIGRATION.0301 913363 Information not available 07/09/2022 Do You Have Any Pets? Yes MIGRATION.0301 577398 Information not available 07/09/2022 What Is Your Relationship Status? MIGRATION.0301 797203 Information not available 07/09/2022 Do You Use Your Seat Belt Or Car Seat Routinely? Yes MIGRATION.0301 987592 Information not available 07/09/2022 Do You Have Smoke And Carbon Monoxide Detectors In Your Home? Yes MIGRATION.0301 659549 Information not available 07/09/2022 Are You Passively Exposed To Smoke? No MIGRATION.0301 382620 Information not available 07/09/2022 Are There Any Smokers In Your House? No MIGRATION.0301 497269 Information not available 07/09/2022 Do You Participate In Social Media? No MIGRATION.0301 051307 Information not available 07/09/2022 Do You Use Sunscreen Routinely? Yes MIGRATION.0301 702489 Information not available 07/09/2022 Has Tobacco Cessation Counseling Been Provided? No MIGRATION.0301 855906 Information not available 07/09/2022 Have You Recently Traveled Abroad? No MIGRATION.0301 507327 Information not available 07/09/2022 Do You Have Difficulty Walking Or Climbing Stairs? No MIGRATION.0301 726265 Information not available 07/09/2022 Are You Currently In School? No MIGRATION.0301 186286 Information not available 07/09/2022 Do You Have Any Dietary Restrictions? No MIGRATION.0301 636531 Information not available 07/09/2022 Sex: Unknown Functional Status Question Answer Note LastModified by Organizat ion Details LastModified Time Do you use any illicit or recreational drugs? No MIGRATION.1080236 026 Information not available 07/09/2022 Do you or have you ever used any other forms of tobacco or nicotine? No MIGRATION.5086665 026 Information not available 07/09/2022 What is your level of alcohol consumption? Occasional MIGRATION.3130066 026 Information not available 07/09/2022 Are you currently employed? No Information not available 11/20/2022 Do you have transportation difficulties? No MIGRATION.7723057 026 Information not available 07/09/2022 Are you able to walk independently without assistance or assistive devices? [employer] MIGRATION.8598152 026 Information not available 07/09/2022 Do you have difficulty doing errands alone? No MIGRATION.6097753 026 Information not available 07/09/2022 Are you able to care for yourself independently? No MIGRATION.7245417 026 Information not available 07/09/2022 Do you have difficulty dressing, bathing, grooming, or toileting? No MIGRATION.1582523 026 Information not available 07/09/2022 What is your exercise level? None Information not available 11/20/2022 Mental Status Question Answer Note LastModified by Organizat ion Details LastModified Time Do you feel stressed (tense, restless, nervous, or anxious, or unable to sleep at night)? RP5375-7 Information not available 11/20/2022 Do you have difficulty concentrating, remembering or making decisions? No MIGRATION.51938782 26 Information not available 07/09/2022 Family History Relationship Description Onset Age of this Age Resolved Age Notes LastModified by Organization Details LastModified Time Mother Family history of stroke MIGRATION.636 1398214 Not available 07/09/2022 23:36:39 Mother Hypertensive disorder MIGRATION.073 1880697 Not available 07/09/2022 23:36:39 Mother Diabetes mellitus MIGRATION.431 7199422 Not available 07/09/2022 23:36:39 Mother Arthritis MIGRATION.408 4625108 Not available 07/09/2022 23:36:39 Mother Heart disease MIGRATION.743 2127455 Not available 07/09/2022 23:36:39 Father Malignant neoplasm of lung MIGRATION.852 4766324 Not available 07/09/2022 23:36:39 Father Arthritis MIGRATION.557 5584945 Not available 07/09/2022 23:36:40 Brother Diabetes mellitus MIGRATION.361 9658659 Not available 07/09/2022 23:36:40 Brother Hypertensive disorder MIGRATION.817 8473472 Not available 07/09/2022 23:36:40 Brother Heart disease MIGRATION.593 7935246 Not available 07/09/2022 23:36:40 Medical History Condition [...] high-dose, trivalent, PF 5 completed JEFFREY Blue, [facility] [employer] 03/30/2025 10:58:28 Tdap 1 completed Not Available [facility] 07/09/2022 23:39:34 Influenza, high-dose, quadrivalent, PF 1 completed Not Available [facility] 07/09/2022 23:39:34 Influenza, high-dose, quadrivalent, PF 2 completed Not Available [facility] 07/09/2022 23:39:34 Influenza, high-dose, quadrivalent, PF 3 completed Noman canales, [place] [employer] [facility] [employer] [facility] 01/29/2023 09:40:02 Influenza, high-dose, trivalent, PF 4 completed Cuauhtemoc Jasso MD [address] [place] [address], [address], [facility] [employer] 03/08/2024 14:54:13 Pneumococcal conjugate PCV20, polysaccharide RJE398 conjugate, adjuvant, PF 4 completed JEFFREY Rider, [place] [employer] [facility] [employer] [facility] 03/23/2024 11:59:47 pneumococcal polysaccharide PPV23 3 completed Jackeline Hernandez RN [facility], [place] [facility] 11/20/2022 11:16:38 Past Encounters Encounter ID Performer Location Encounter Start Date Encounter Closed Date Diagnosis/Indication Diagnosis SNOMED-CT Code Diagnosis ICD10 Code Diagnosis IMO Codes Diagnosis Note [id number] Gabriel Lowe MD [facility] [address] [place] [address] 03/27/2025 14:26:49 03/27/2025 14:48:26 Pain of left shoulder region 5798171519 M25.512 66081959 Chronic pa in of left upper limb 4401951759 4676473 M79.602 G89.29 [id number] Cuauhtemoc Jasso MD [address] [address] 03/30/2025 09:42:25 03/30/2025 10:15:46 Chronic idiopathic constipation 90501367 K59.04 Hyperlipidemia 80434374 E78.5 Gastroesop hageal reflux disease without esophagitis 912378767 K21.9 Vitamin D deficiency 347 50260 E55.9 Fibromyalgia 659619992 M 79.7 Congestive heart failure 81184485 I50.9 Acute non- ST segment elevation myocardial infarction 282194258 I21.4 History - in 03/2023 Coronary atherosclerosis 365730406 I25.10 Obesity 471346555 E66.9 Depressive disorder 3548 9007 F32.9 Chronic insomnia 5955446 04 F51.04 Chronic pa in of left upper limb 1580197640 6726645 M25.512 G89.29 948024 Screening mammography 24 892477 Z12.31 Postmenopausal state 764 57535 Z78.0 Needs infl uenza immunization 995117312 Z23 397379 Chronic low back pain 27 2948930 M54.40 G89.29 49508612 Health Concerns Section Related Observation LastModified by Organization Detai ls LastModified Time None Recorded Concern Status LastModified by Organization Details LastModified Time None Recorded Payers Encounter Date Sequence Insurance Name Policy Number Policy Ramos Covered Member ID Ramos Member ID Guarantor Name 03/30/2025 1 [place] Daisy Rodriguez [id number] Daisy Rodriguez 03/30/2025 2 [place] [address] [id number] Daisy Rodriguez Notes Date Note Type Note Provider Name and Address Organization Details Recorded Time 03/30/2025 text/html Pt is here for her [...] them every 3-4 months. Cuauhtemoc Jasso MD [address] [place] [address], [facility] [address], [place], [address], [place] [facility] [email or web address] 03/30/2025 10:14:45 OBGyn Episode No OBEpisode recorded.
--- OUTSIDE RECORDS SUMMARY | 2025-03-30 17:34 | XMS_ITS | Clinical Summary ---
Author Organization [facility] Medical Office Building B Address [address] [place] [address] Care Team Providers Care Wood Filler Name Role Phone Cuauhtemoc Jasso MD Primary Care Provider [phone] Allergies Active Allergy Reactions Criticality Noted Date [...] pcp Assessment & Plan (04/27/2023 12:02 PM OIL PAINTER): Pap done. RTO 12m. I will send the results to the portal. If she has not heard in a week, to call the office. 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
--- OUTSIDE RECORDS SUMMARY | 2025-03-30 17:34 | XMS_ITS | Continuity of Care Document ---
Author Organization [place] - [facility] Orth[facility] Lucia Mcdnoough Address [address] [place] [address] Care Team Providers Care Solutions Development Analyst Name Role Phone CUAUHTEMOC JASSO Primary Care Provider [phone] CUAUHTEMOC JASSO Referring Provider Assessment Encounter Date Assessment Date Assessment LastModified by Organization Details LastModified Time 01/16/2025 01/16/2025 69-year-old female presents for evaluation of her left shoulder. [...] Positive Jaden, positive Neer and Szymanski, positive Parker's X-rays reviewed, demonstrating AC hypertrophy, subacromial spur, mild glenohumeral arthritis with a very small inferior osteophyte She likely had a acute traumatic rotator cuff injury. We will begin with a course of conservative management as she has not had any treatments yet. She can not take oral NSAIDs so we will have her use topical Voltaren and yeio-huc-dgjagua Tylenol. We will also send to physical therapy to work on her shoulder range of motion strengthening. We will see her back in 6 weeks for recheck. If persistent symptoms at that time we will consider cortisone injection and get an MRI. She is in agreement with the plan. [email or web address] Not available 01/16/2025 17:17:48 Plan of Treatment Reminders Order Date Submit Date Provider Last Modified By Organization Details Last Modified Time Details Appointments Physical/ Annual Wellness 30 2024 09:00A M Cuauhtemoc Jasso MD Not available Not available Not available Follow Up 15 2024 11:00A M Cuauhtemoc Jasso MD Not available Not available Not available Lab None recorded. Referral physical therapist referral - Please contact pt to schedule for L shoulder 2024 025 [facility], [address], [place], [address], 01/30/2025 18:30:49 Procedures None recorded. Surgeries None recorded. Imaging None recorded. Medication Orders None recorded. Patient TargetsNo targets recorded. Patient InstructionsNo instructions recorded. Reason for Referral Physical Therapist Referral for Pain of left shoulder joint L shoulder Please contact pt to schedule for L shoulder Referring Physician: Gabriel Lowe, Orthopedic Surgery, Encounter Date: 01/16/2025 Results Created Date Observation Date Name Description Value Unit Range Abnormal Flag Note LastModifiedBy Organization Detail LastModifiedTime 12/27/1912/26/2024 XR, humer us, 2 or more view No observ ation record ed. [address], [place], [address], 01/02/2025 16:41:36 01/06/20 25 01/03/2025 XR, shoul nav, 2 or more view No observ ation record ed. [address], [place], [address], 03/30/2025 09:55:51 03/30/20 25 03/30/2025 XR, lumbo sacra l spine , 4 or more view No observ ation record ed. [address], [place], [address], 03/30/2025 16:06:41 03/30/20 25 03/30/2025 XR, lumbo sacra l spine , 4 or more view No observ ation record ed. [facility] [address], [place], [address], 03/30/2025 16:57:23 Result Notes None recorded. Problems Name Problem SNOMED Code Status Onset Date Resolution Date Notes Provider Name and Address Organization Details Recorded Time Impacted cerumen of bilateral ears 1797313513557 108 Active 2020 Not Available [facility] 3 23:37:53 Anxiety disorder 097286203 Active 2020 Not Available [facility] 3 23:37:53 Depressive disorder 46653419 Active 2020 Not [address] [facility] 3 23:37:53 Hypertensi ve disorder 87333626 Active 2020 Not Available [facility] 3 23:37:53 Obesity 514415555 Active 2020 Not Available [facility] 3 23:37:53 Congestive heart failure 13185846 Active 2020 Not Available [facility] 3 23:37:53 Coronary atheroscle rosis 439140292 Active 2020 Not Available [facility] 3 23:37:54 Fatigue 56971381 Active 2020 Not Available [facility] 3 23:37:54 Fibromyalg ia 337950398 Active 2020 Not Available [facility] 3 23:37:53 Hyperlipid emia 71728253 Active 2020 Not Available [facility] 3 23:37:54 Folliculit is 83107305 Active 2021 Not Available [facility] 3 23:37:53 Screening for malignant neoplasm of colon Active 2021 Not Available [facility] 3 23:37:53 Active immunizati on Active 2021 Not Available [facility] 3 23:37:53 Seasonal allergic rhinitis 445022842 Active 2021 Not Available [facility] 3 23:37:53 Arthritis 6080731 Active 2021 Not Available [facility] 3 23:37:53 Heart disease 84461878 Active 2021 Not Available [facility] 3 23:37:54 Closed fracture of fifth metatarsal bone 21021883 Active 2021 Not Available [facility] 3 23:37:54 Acquired right hallux rigidus 3510609425750 00 Active 2022 Aashish Chiang DPM [address], [place], [address] , [employer] [facility] [employer] 3 17:52:59 Chronic insomnia 060511791 Active 2022 Cuauhtemoc Jasso MD [address], [place], [address] , [employer] 3 17:20:06 Chronic hypokalemi a 57231998 Active 2022 Cuauhtemoc Jasso MD [address], [place], [address] , [employer] 3 17:30:10 Impacted cerumen in right ear 0236383259322 103 Active 2022 Cuauhtemoc Jasso MD [address], [place], [address] , [email or web address] 3 10:15:07 Osteopenia 129252994 Active 2022 Cuauhtemoc Jasso MD [address], [place], [address] , [employer] [facility] [employer] 3 16:29:04 Vitamin D deficiency 54380368 Active 2022 Cuauhtemoc Jasso MD [address], [place], [address] , [employer] 3 16:31:26 Diverticul itis 749629089 Active 2022 Cuauhtemoc Jasso MD [address], [place], [address] , [employer] 3 14:39:40 Exercise-i nduced asthma 74611059 Active 2022 Cuauhtemoc Jasso MD [address], [place], [address] , [employer] 3 15:48:33 Right upper quadrant pain 712916511 Active 2022 Cuauhtemoc Jasso MD [address], [place], [address] , [employer] 3 16:46:11 Nausea 928525614 Active 2022 Cuauhtemoc Jasso MD [address], [place], [address] , [employer] 3 16:47:11 Gallstone 442648899 Active 2022 Cuauhtemoc Jasso MD [address], [place], [address] , [employer] 3 15:31:56 Chronic idiopathic constipati on 27784099 Active 2022 Cuauhtemoc Jasso MD [address], [place], [address] , [employer] 3 15:33:18 Cholelithi asis without obstructio n 82803871 Active 2022 Nilay jacobsen MD [address], [place], [address] , [employer] [facility] [employer] 3 13:47:53 Bronchitis 12498646 Active 2022 Cuauhtemoc Jasso MD [address], [place], [address] , [employer] 3 16:53:45 Cough 46408214 Active 2022 Cuauhtemoc Jasso MD [address], [place], [address] , [facility] 3 16:13:16 Gastroesop hageal reflux disease without esophagiti s 552023979 Active 2022 Cuauhtemoc Jasso MD [address], [place], [address] , [facility] 3 15:17:44 Acute non-ST segment elevation myocardial infarction 741292199 Active 2022 Cuauhtemoc Jasso MD [address], [place], [address] , [facility] 3 15:39:28 Acid reflux 462875913 Active 2023 NENO Gayle [address], [place], [address] , [facility] 4 16:23:06 Keloid scar 60351599 Active 2023 NENO Gayle [address], [place], [address] , [facility] 4 16:30:20 Diverticul itis of colon 810710073 Active 2023 Cuauhtemoc Jasso MD [address], [place], [address] , [facility] 4 09:22:23 COVID-19 384181211 Active 2023 Cuauhtemoc Jasso MD [address], [place], [address] , [facility] 4 16:28:55 Dyspnea on exertion 50967320 Active 2023 Cuauhtemoc Jasso MD [address], [place], [address] , [facility] 4 14:52:11 Recurrent falls 626447168 Active 2024 Cuauhtemoc Jasso MD [address] [facility] [facility] [address], [place], [address] , [facility] 5 14:39:17 Pain in left arm 191066905 Active 2024 Cuauhtemoc Jasso MD [address] [facility] [facility] [address], [place], [address] , [facility] 5 14:39:35 Chronic pain of left upper limb 4311607510048 9103 Active 2024 Cuauhtemoc Jasso MD [address] [facility] [facility] [address], [place], [address] , [facility] 5 09:49:06 Pain of left shoulder joint 1092409114260 9109 Active 2024 Park Mignon null, [facility] 5 15:17:32 Pain of left shoulder region Active 2024 ALVAREZ Trinidad, [facility] 5 14:30:30 Chronic low back pain 577857921 Active 2024 Cuauhtemoc Jasso MD [address] [place] [address], [place], [address] , [facility] 5 10:01:23 Problem Notes None recorded. Procedures Surgical History Date Name Laterality Status Provider Name and Address Organization Details Recorded Time 08/10/19 24 cholecystectomy completed Jackeline Hernandez, JEFFREY [facility] 10/19/2023 16:00:46 12/03/19 23 Ear Irrigation completed Cuauhtemoc Jasso MD [address] [facility] [facility] [address], [place], [address], [facility] 12/02/2022 16:16:55 Knee arthroscopy/surger y completed Not Available [facility] 07/09/2022 23:36:37 Cardiac Stent Placement completed Not Available [facility] 07/09/2022 23:36:37 Breast augmentation w/implt completed Not Available [facility] 07/09/2022 23:36:37 tonsillectomy completed Not Available [facility] 07/09/2022 23:36:37 Imaging Results None recorded. Procedure Notes None recorded. Medical Equipment None Reported. Allergies Allergen ID Allergen Name Allergen Category Reaction Reaction Severity Criticality Documentation Date Start Date Code Code System Note Provider Name and Address Organization Details Recorded Time 17628 Flagyl medicatio n Not available Not available Not available 07/09/2022 6 RxNorm Not Available [facility] 23:39:37 96158 Levaquin medicatio n Not available Not available Not available 03/08/2024 50867 2 RxNorm Mulu Coto RN [facility], [place] - S [employer] 4 14:13:06 87396 levofloxa john medicatio n Not available Not available Not available 03/27/2025 76159 RxNorm Not Available [facility] - External Data Service - prod 5 05:34:48 10126 metronida zole medicatio n Not available Not available Not available 03/27/2025 6922 RxNorm Not Available [facility] - External Data [...] propionate 50 mcg/actuati on nasal spray,suspe nsion Aristes 2 sprays every day by intranasa l [...] Updated DateTime 01/16/2025 160.02 cm 33.5 kg/m2 72147.96 g Park [facility] [employer] 01/16/2025 15:11:42 Social History Question Answer Notes LastModified by Organization Details LastModified Time Tobacco Smoking Status Never Smoker Not Available [employer] 07/09/2022 23:36:28 Do You Have An Advance Directive? No MIGRATION.0301 845167 Information not available 07/09/2022 Do You Wear A Helmet When Biking? No MIGRATION.0301 562083 Information not available 07/09/2022 Are You Blind Or Do You Have Difficulty Seeing? No MIGRATION.0301 553610 Information not available 07/09/2022 Is Blood Transfusion Acceptable In An Emergency? Yes Information not available 11/20/2022 What Is Your Level Of Caffeine Consumption? Heavy 1 Cup Of Coffee/day Pitcher Of Sweet Tea/day 2 Or 3 (16 Oz)bottles Of Coke Or Pepsi/day [email or web address] Information not available 03/30/2025 What Is Your Code Status? Full Code Information not available 11/20/2022 In The 14 Days Before Symptom Onset, Have You Had Close Contact With A Laboratory-confi rmed COVID-19 While That Case Was Ill? No MIGRATION.030 604765 Information not available 07/09/2022 In The 14 Days Before Symptom Onset, Have You Had Close Contact With A Person Who Is Under Investigation For COVID-19 While That Person Was Ill? No MIGRATION.030 337404 Information not available 07/09/2022 Are You Deaf Or Do You Have Serious Difficulty Hearing? No MIGRATION.0301 222007 Information not available 07/09/2022 What Type Of Diet Are You Following? REGULAR MIGRATION.0301 063481 Information not available 07/09/2022 Have There Been Any Changes To Your Family Or Social Situation? Yes Passed Back In Mar. MIGRATION.0301 687160 Information not available 07/09/2022 Are There Any Guns Present In Your Home? No MIGRATION.0301 217293 Information not available 07/09/2022 Do You Use Insect Repellent Routinely? No MIGRATION.0301 920409 Information not available 07/09/2022 Where Do You Live? [facility] MIGRATION.0301 203970 Information not available 07/09/2022 Do You Have A Medical Power Of Organ Pipe Finisher? No Discuss With Children Already MIGRATION.0301 185156 Information not available 07/09/2022 Have You Ever Been Counseled For Unhealthy Alcohol Use? No MIGRATION.0301 013465 Information not available 07/09/2022 Do You Have Any Pets? Yes MIGRATION.0301 114617 Information not available 07/09/2022 What Is Your Relationship Status? MIGRATION.0301 904615 Information not available 07/09/2022 Do You Use Your Seat Belt Or Car Seat Routinely? Yes MIGRATION.0301 833721 Information not available 07/09/2022 Do You Have Smoke And Carbon Monoxide Detectors In Your Home? Yes MIGRATION.0301 634023 Information not available 07/09/2022 Are You Passively Exposed To Smoke? No MIGRATION.0301 822948 Information not available 07/09/2022 Are There Any Smokers In Your House? No MIGRATION.0301 880221 Information not available 07/09/2022 Do You Participate In Social Media? No MIGRATION.0301 704740 Information not available 07/09/2022 Do You Use Sunscreen Routinely? Yes MIGRATION.0301 656218 Information not available 07/09/2022 Has Tobacco Cessation Counseling Been Provided? No MIGRATION.0301 135127 Information not available 07/09/2022 Have You Recently Traveled Abroad? No MIGRATION.0301 872531 Information not available 07/09/2022 Do You Have Difficulty Walking Or Climbing Stairs? No MIGRATION.0301 630304 Information not available 07/09/2022 Are You Currently In School? No MIGRATION.0301 234998 Information not available 07/09/2022 Do You Have Any Dietary Restrictions? No MIGRATION.0301 895890 Information not available 07/09/2022 Sex: Unknown Functional Status Question Answer Note LastModified by Organizat Orderlord Details LastModified Time Do you use any illicit or recreational drugs? No MIGRATION.4214700 026 Information not available 07/09/2022 Do you or have you ever used any other forms of tobacco or nicotine? No MIGRATION.4666522 026 Information not available 07/09/2022 What is your level of alcohol consumption? Occasional MIGRATION.3339270 026 Information not available 07/09/2022 Are you currently employed? No Information not available 11/20/2022 Do you have transportation difficulties? No MIGRATION.8705202 026 Information not available 07/09/2022 Are you able to walk independently without assistance or assistive devices? YESWOREST MIGRATION.6629543 026 Information not available 07/09/2022 Do you have difficulty doing errands alone? No MIGRATION.1942326 026 Information not available 07/09/2022 Are you able to care for yourself independently? No MIGRATION.5705009 026 Information not available 07/09/2022 Do you have difficulty dressing, bathing, grooming, or toileting? No MIGRATION.8374302 026 Information not available 07/09/2022 What is your exercise level? None Information not available 11/20/2022 Mental Status Question Answer Note LastModified by Organizat ion Details LastModified Time Do you feel stressed (tense, restless, nervous, or anxious, or unable to sleep at night)? PG2380-6 Information not available 11/20/2022 Do you have difficulty concentrating, remembering or making decisions? No MIGRATION.82810793 26 Information not available 07/09/2022 Family History Relationship Description Onset Age of this Age Resolved Age Notes LastModified by Organization Details LastModified Time Mother Family history of stroke MIGRATION.850 [id number] Not available 07/09/2022 23:36:39 Mother Hypertensive disorder MIGRATION.289 4355530 Not available 07/09/2022 23:36:39 Mother Diabetes mellitus MIGRATION.690 1162944 Not available 07/09/2022 23:36:39 Mother Arthritis MIGRATION.756 9931940 Not available 07/09/2022 23:36:39 Mother Heart disease MIGRATION.722 4154444 Not available 07/09/2022 23:36:39 Father Malignant neoplasm of lung MIGRATION.336 5316518 Not available 07/09/2022 23:36:39 Father Arthritis MIGRATION.519 6560301 Not available 07/09/2022 23:36:40 Brother Diabetes mellitus MIGRATION.820 2244094 Not available 07/09/2022 23:36:40 Brother Hypertensive disorder MIGRATION.969 9966499 Not available 07/09/2022 23:36:40 Brother Heart disease MIGRATION.659 4765883 Not available 07/09/2022 23:36:40 Medical History Condition Response ARTHRITIS Y USE OF BLOOD THINNERS Y SKIN PROBLEMS Y HEART DISEASE/HEART PROBLEMS Y INSOMNIA Y HEARTBURN / REFLUX Y HYPERTENSION Y HIGH CHOLESTEROL / HYPERLIPIDEMIA Y CANCER: SPECIFY Y Gall Stones Y FIBROMYALGIA Y OSTEOPOROSIS Y DEPRESSION (INCLUDING POST ) Y Gynecological History Statement/Question Response Abnormal Pap N If Post Menopausal, Age at Menopause 52 Date of Last Pap Smear Date of Last Colonoscopy Most Recent Mammogram Most Recent Bone Density Obstetrics History GPAL:G 0 P 0 0 0 0 Immunizations Vaccine Type Date Status Note Provider Nam e and Address Organization Details Recorded Time Influenza, high-dose, trivalent, PF 5 completed [facility] [employer] [facility] 03/30/2025 10:58:28 Tdap 1 completed Not Available [facility] 07/09/2022 23:39:34 Influenza, high-dose, quadrivalent, PF 1 completed Not Available [facility] 07/09/2022 23:39:34 Influenza, high-dose, quadrivalent, PF 2 completed Not Available [facility] 07/09/2022 23:39:34 Influenza, high-dose, quadrivalent, PF 3 completed Noman canales [facility] [employer] [facility] 01/29/2023 09:40:02 Influenza, high-dose, trivalent, PF 4 completed Cuauhtemoc Jasso MD [address] [place] [address], [address], [address], [place] [email or web address] 03/08/2024 14:54:13 Pneumococcal conjugate PCV20, polysaccharide [id number] conjugate, adjuvant, PF 4 completed Autumn Sanders RN null, [employer] 03/23/2024 11:59:47 pneumococcal polysaccharide PPV23 3 completed Jackeline Hernandez RN null, [employer] 11/20/2022 11:16:38 Past Encounters Encounter ID Performer Location Encounter Start Date Encounter Closed Date Diagnosis/Indication Diagnosis SNOMED-CT Code Diagnosis ICD10 Code Diagnosis IMO Codes Diagnosis Note [id number] Cuauhtemoc Jasso MD [facility] [address] [address] 01/02/2025 16:22:55 01/02/2025 16:52:19 Hyperlipidemia 48322392 E78.5 Gastroesop hageal reflux disease without esophagitis 427790025 K21.9 Chronic id iopathic constipation 66938751 K59.04 Vitamin D deficiency 347 85582 E55.9 Fibromyalgia 724047748 M 79.7 Congestive heart failure 23273865 I50.9 Acute non- ST segment elevation myocardial infarction 850564172 I21.4 History - in 03/2023 Coronary atherosclerosis 247606467 I25.10 Obesity 527217978 E66.9 Depressive disorder 3548 9007 F32.9 Chronic insomnia 5701985 04 F51.04 Recurrent falls 20193628 2 R29.6 97680 Pain in left arm 9736199 00 M79.602 302554 Chronic pa in of left upper limb 4633719465 8244857 M25.512 G89.29 100040 Screening for malignant neoplasm of colon 151765894 Z12.11 [id number] Gabriel Lowe MD [facility] Lucia Mcdonough [address] [place] [address] 01/16/2025 14:42:10 01/16/2025 16:43:42 Pain of left shoulder joint 9165561043 2570109 M25.512 897629 Health Concerns Section Related Observation LastModified by Organization Detai ls LastModified Time None Recorded Concern Status LastModified by Organization Details LastModified Time None Recorded Payers Encounter Date Sequence Insurance Name Policy Number Policy Ramos Covered Member ID Ramos Member ID Guarantor Name 01/16/2025 1 [place] Daisy Rodriguez [id number] Daisy Rodriguez 01/16/2025 2 [place] [address] [id number] Daisy Rodriguez OBGyn Episode No OBEpisode recorded.
== END 2025-03-30 14:27 | disposition home or self-care (01) ==
PROVIDERS: PCP Family Medicine; Visit Provider Family Medicine
DX: M54.40 Lumbago with sciatica, unspecified side (principal); G89.29 Other chronic pain
CPT/HCPCS: 72110